=== PATIENT | female | born 1940 | race Caucasian/White ===

== ENCOUNTER 2019-03-19 14:13 | Inpatient (IN) | payer MEDICARE, MEDICAID, SELFPAY ==
[2019-03-19 20:45] VITALS: BP 127/71; PULSE 69; RESP 16; TEMP 36.5; O2SAT 95
[2019-03-19 21:00] VITALS: BP 116/69; PULSE 65; RESP 18; TEMP 36.4; O2SAT 94
[2019-03-19 21:30] VITALS: BP 119/70; PULSE 64; RESP 18; TEMP 36.4; O2SAT 96
[2019-03-19 22:30] VITALS: BP 121/69; PULSE 61; RESP 18; TEMP 36.5; O2SAT 97
[2019-03-19 23:30] VITALS: BP 126/71; PULSE 62; RESP 18; TEMP 36.5; O2SAT 97
[2019-03-20] VITALS (8 sets, daily range): BP systolic 103–134; BP diastolic 45–85; PULSE 59–71; RESP 16–22; TEMP 36.3–36.7; O2SAT 93–96
--- NOTE | 2019-03-20 05:43 | PC.PHAR ---
RENAL DOSING FOR LEVAQUIN. CHANGED Q24H TO Q48H DUE TO CRCL 23.05
[2019-03-20 06:10] LABS: Add RBC Morph No
[2019-03-20 06:17] LABS: Basophils % 0.2 %; Eosinophils # 0.3 10^3/uL (0.0-0.8); Eosinophils % 2.3 %; Hematocrit 25.6 % (37.0-47.0); Hemoglobin 8.1 g/dL (11.5-15.3); Lymphocytes # 1.6 10^3/uL (0.8-4.8); Lymphocytes % 11.4 %; Mean Corpuscular HGB Conc 31.6 g/dL (30.0-36.0); Mean Corpuscular Volume 85.3 fL (81-99); Mean Platelet Volume 10.4 fL (7.4-10.4); Monocytes % 6.8 %; Neutrophils # 11.2 10^3/uL (1.8-7.7); Neutrophils % 78.8 %; Nucleated Red Blood Cells % 0.1 %; Platelet Count 552 10^3/cmm (130-400); White Blood Count 14.2 10^3/uL (4.0-10.0)
--- NOTE | 2019-03-20 06:32 | PC.NURSE ---
BLOOD VITALS: Prior to Admin
--- NOTE | 2019-03-20 06:42 | PC.NURSE ---
BLOOD VITALS: 03/20/19: 0010 Final Blood vitals after blood admin complete.
[2019-03-20] MEDS: pantoprazole DR 40 mg Tablet PO (08:50)
[2019-03-20] MEDS: sodium chloride 0.9 % (flush) syringe 10 mL 2 ML IV ×3 (08:51→23:21)
[2019-03-20] MEDS: ropinirole 1 mg Tablet PO (08:51)
[2019-03-20] MEDS: carvedilol 6.25 mg Tablet PO ×2 (08:51→17:40)
[2019-03-20] MEDS: carbidopa-levodopa ER 50-200mg Tablet 1 EACH PO ×3 (08:51→21:55)
[2019-03-20] MEDS: magnesium oxide 400 mg tablet PO (08:52)
[2019-03-20 10:09] LABS: Folate > 20.0 ng/mL (4.8-37.3)
[2019-03-20 12:12] LABS: Anion Gap 16.1 (5-19); Carbon Dioxide 24 mmol/L (22-29); Chloride 105 mmol/L (98-107); Glucose 172 mg/dL (74-106); Potassium 4.1 mmol/L (3.5-5.1); Sodium 141 mmol/L (136-145)
[2019-03-20 13:12] LABS: Blood Urea Nitrogen 54 mg/dL (8-23); Calcium 8.8 mg/Dl (8.8-10.2)
--- NOTE | 2019-03-20 13:46 | PC.CHAP ---
Pastoral Care Encounter/Spiritual Assessment Type of Contact [] Declined parks worker visit [] Patient/Family/Request visit [] Outpatient visit [] Follow-up visit [] Physician referral [] Code/Alert [x Routine visit [] Staff referral [] Actively dying [] Patient sleeping [] Family support [] [] Out of room [] Palliative care [] [] Receiving care in room [] Pre-surgical visit [] Trauma [] Long length of stay [] ICU visit [] Other: Relational/Emotional Strength [x] Patient feels connected with others/family/visitors/staff [] Distress [] Loneliness/isolation [] Abandonment Spirituality of Patient [x] Person of [place] [] Attends [facility] of their [place] [] Believes in Prayer [] Reads Bible or Sikhism materials [] There are Spiritual issues to be addressed [employer] Interventions [x Prayer [x] Active listening [x Non-anxious presence [x] Spiritual/emotional support [] Crisis/trauma care [] Spiritual counseling [] Bereavement support [] Provided bereavement packet [] Provided Bible/devotional materials [] Provided toy/stuffed animal, coloring book to patient or family member [x] Completed spiritual assessment [] Provided Communion [] Anointing/[place] [] Salvation [] Other: Impact on Illness or Injury [] Angry [] Fearful [x] Anxious [] Often cries [] Exhaustion [] Unable to work [] Unable to attend taoism [] Unable to walk/stand [] Unable to read [] Unable to drive [] Unable to eat/drink [] Unable to sleep [] Unable to be with family [] Other: Summary wants to go home has great attitude loves [facility] Time spent with patient 7 min
[2019-03-20 14:57] LABS: Add Urine Culture? No; Bacteria Urine TRACE; Bilirubin Urine Neg (Negative); Blood Urine Neg (Negative); Glucose Urine UA Norm (Normal); Ketones Urine Negative (Negative); Leukocyte Esterase Urine Negative (Negative); Nitrate Urine Negative (Negative); Protein Urine Trace (Negative); Squamous Epithelial Cell Urine 0-4 (0-5); Urine Appearance Clear (CLEAR); Urine Color Straw (Yellow); Urobilinogen Urine Norm (Negative); WBC Urine 0-4 /hpf (0-5)
--- NOTE | 2019-03-20 17:09 | P.PN_ITS ---
Subjective Subjective: Interval history: Chelsi reports she is feeling better. She is less short of breath. Medications: Reviewed: Yes Vitals/I&O/Wt Last Vital Signs Temp 97.5 F L 03/20/19 11:34 Pulse 71 03/20/19 15:48 Resp 18 03/20/19 15:48 BP 134/76 03/20/19 15:48 Pulse Ox 93 03/20/19 15:48 03/20/19 03/20/19 03/20/19 06:59 14:59 22:59 Intake Total 600 / 600 Output Total 200 / 200 200 / 200 400 / 600 Balance -200 / -200 400 / 400 -400 / 0 Weight last 48 hrs Weight 70.023 kg Physical Exam Narrative: EXAM NARRATIVE: General exam is no apparent distress, does appear weak Cardiovascular regular rate and rhythm with a 2/6 systolic murmur Lungs diminished breath sounds bilaterally but clear Abdomen is soft with positive bowel sounds Extremities trace to 1+ edema bilaterally. Data Labs: Other Labs: All Labs last 24 hrs except CBC/BMP 03/19/19 03/19/19 03/19/19 13:08 14:30 18:00 RBC MCV MCH MCHC RDW MPV Neut % (Auto) Lymph % (Auto) [place] % (Auto) Eos % (Auto) Baso % (Auto) Neut # (Auto) Lymph # (Auto) [place] # (Auto) Eos # (Auto) Baso # (Auto) Nucleated RBC % (a uto) Nucleated RBCs # POC Glucose 121 H Calcium Ferritin 49.0 Vitamin B12 807 Folate TSH 1.56 Urine Color Straw Urine Appearance Clear Urine pH 5.0 Ur Specific Gravit y 1.010 Urine Protein Trace A Urine Glucose (UA) Norm Urine Ketones Negative Urine Occult Blood Neg Urine Nitrate Negative Urine Bilirubin Neg Urine Urobilinogen Norm Ur Leukocyte Vee ase Negative Urine RBC None Urine WBC 0-4 H Ur Squamous Epith Cells 0-4 H Urine Bacteria Trace 03/19/19 03/20/19 03/20/19 21:04 05:20 05:20 RBC 3.00 L MCV 85.3 MCH 27.0 L MCHC 31.6 RDW 16.0 H MPV 10.4 Neut % (Auto) 78.8 Lymph % (Auto) 11.4 [place] % (Auto) 6.8 Eos % (Auto) 2.3 Baso % (Auto) 0.2 Neut # (Auto) 11.2 H Lymph # (Auto) 1.6 Bell # (Auto) 1.0 H Eos # (Auto) 0.3 Baso # (Auto) 0.0 Nucleated RBC % (a uto) 0.1 Nucleated RBCs # 0.0 POC Glucose 199 H Calcium Ferritin Vitamin B12 Folate > 20.0 TSH Urine Color Urine Appearance Urine pH Ur Specific Gravit y Urine Protein Urine Glucose (UA) Urine Ketones Urine Occult Blood Urine Nitrate Urine Bilirubin Urine Urobilinogen Ur Leukocyte Vee ase Urine RBC Urine WBC Ur Squamous Epith Cells Urine Bacteria 03/20/19 11:42 RBC MCV MCH MCHC RDW MPV Neut % (Auto) Lymph % (Auto) [place] % (Auto) Eos % (Auto) Baso % (Auto) Neut # (Auto) Lymph # (Auto) [place] # (Auto) Eos # (Auto) Baso # (Auto) Nucleated RBC % (a uto) Nucleated RBCs # POC Glucose Calcium 8.8 Ferritin Vitamin B12 Folate TSH Urine Color Urine Appearance Urine pH Ur Specific Gravit y Urine Protein Urine Glucose (UA) Urine Ketones Urine Occult Blood Urine Nitrate Urine Bilirubin Urine Urobilinogen Ur Leukocyte Vee ase Urine RBC Urine WBC Ur Squamous Epith Cells Urine Bacteria Micro: Micro: Microbiology 03/19/19 14:30 Occult Blood (FIT) - Final Stool A&P Assessment and plan (1) Respiratory failure: Overall appears improved. On 3 L of oxygen. Status: Acute Code(s): J96.90 - Respiratory failure, unspecified, unspecified whether with hypoxia or hypercapnia (2) Anemia: Improved following transfusion. Further work-up indicates iron deficiency, heme-negative stools. Will provide iron transfusion Status: Acute Code(s): D64.9 - Anemia, unspecified (3) Leukocytosis: Improved Status: Acute Code(s): D72.829 - Elevated white blood cell count, unspecified (4) Right lower lobe pneumonia: Currently on IV Levaquin Status: Acute Code(s): J18.9 - Pneumonia, unspecified organism (5) Type 2 diabetes mellitus: Stable Status: Acute Code(s): E11.9 - Type 2 diabetes mellitus without complications (6) Mitral regurgitation: Stable Status: Acute Code(s): I34.0 - Nonrheumatic mitral (valve) insufficiency (7) Chronic kidney disease, stage III (moderate): Stable Status: Acute Code(s): N18.3 - Chronic kidney disease, stage 3 (moderate) (8) Coronary artery disease: Asymptomatic Status: Acute Code(s): I25.10 - Atherosclerotic heart disease of [place] coronary artery without angina pectoris (9) Diastolic heart failure: Will add Lasix 40 mg daily, monitor creatinine closely Status: Acute Code(s): I50.30 - Unspecified diastolic (congestive) heart failure Attestations Medical Necessity Statement*: Needs continued hospital stay for adjustment of medications secondary to acute diastolic heart failure, IV antibiotics for pneumonia. Coding Level of Care Code Acute Sap Senior Developer for [facility] Fwd Diagnoses Respiratory failure J96.90 Anemia D64.9 Leukocytosis D72.829 Right lower lobe pneumonia J18.9 Type 2 diabetes mellitus E11.9 Mitral regurgitation I34.0 Chronic kidney disease, stage III (moderate) N18.3 Coronary artery disease I25.10 Diastolic heart failure I50.30
[2019-03-20] MEDS: FUROsemide 40 mg Tablet PO (17:41)
[2019-03-20 17:54] LABS: Glucose Point of Care 144 mg/dL (70-110)
[2019-03-20 21:44] LABS: Glucose Point of Care 190 mg/dL (70-110)
[2019-03-20] MEDS: atorvastatin 40 mg Tablet PO (21:56)
[2019-03-21] VITALS (8 sets, daily range): BP systolic 118–130; BP diastolic 64–74; PULSE 59–68; RESP 18–24; TEMP 35.8–36.6; O2SAT 88–96
[2019-03-21 05:28] LABS: Basophils % 0.1 %; Eosinophils # 0.3 10^3/uL (0.0-0.8); Hematocrit 27.9 % (37.0-47.0); Hemoglobin 8.6 g/dL (11.5-15.3); Lymphocytes # 1.7 10^3/uL (0.8-4.8); Lymphocytes % 11.1 %; Mean Corpuscular HGB Conc 30.8 g/dL (30.0-36.0); Mean Corpuscular Hemoglobin 27.1 pg (28.0-34.0); Mean Platelet Volume 10.3 fL (7.4-10.4); Monocytes # 1.1 10^3/uL (0.2-0.9); Monocytes % 7.2 %; Neutrophils # 12.4 10^3/uL (1.8-7.7); Neutrophils % 79.2 %; Nucleated Red Blood Cells % 0.1 %; Platelet Count 552 10^3/cmm (130-400); Red Blood Count 3.17 10^6/uL (4.1-5.3); Red Cell Distribution Width 16.3 % (12.1-15.1); White Blood Count 15.6 10^3/uL (4.0-10.0)
[2019-03-21] MEDS: sodium chloride 0.9 % (flush) syringe 10 mL 2 ML IV (05:31)
[2019-03-21 05:34] LABS: Add RBC Morph No
[2019-03-21 05:49] LABS: Blood Urea Nitrogen 52 mg/dL (8-23); Calcium 9.1 mg/Dl (8.8-10.2); Carbon Dioxide 23 mmol/L (22-29); Chloride 106 mmol/L (98-107); Glucose 132 mg/dL (74-106); Sodium 140 mmol/L (136-145)
[2019-03-21 06:43] LABS: Glucose Point of Care 146 mg/dL (70-110)
[2019-03-21] MEDS: ropinirole 1 mg Tablet PO (10:15)
[2019-03-21] MEDS: pantoprazole DR 40 mg Tablet PO (10:15)
[2019-03-21] MEDS: carvedilol 6.25 mg Tablet PO (10:15)
[2019-03-21] MEDS: FUROsemide 40 mg Tablet PO (10:16)
[2019-03-21] MEDS: carbidopa-levodopa ER 50-200mg Tablet 1 EACH PO (10:16)
--- NOTE | 2019-03-21 12:13 | PM.DCS ---
Discharge Providers Date of Admission: 03/19/19 14:13 Date of Discharge: 03/21/19 Attending Provider at Admission: Ej Davidson MD Attending Provider at Discharge: Ej Davidson MD Primary Care Provider: Vlad Tovar DO Diagnoses at Discharge Discharge Diagnosis (1) Respiratory failure: Status: Acute Problem details: Resolved. Home oxygen evaluation prior to discharge (2) Anemia: Status: Acute Problem details: Transfuse 1 unit packed red blood cells. Hemoglobin stable. Given iron transfusion. May need further outpatient work-up. Protonix initiated. (3) Leukocytosis: Status: Acute Problem details: Improved (4) Right lower lobe pneumonia: Status: Acute Problem details: Will discharge on Levaquin (5) Type 2 diabetes mellitus: Status: Acute Problem details: Stable (6) Mitral regurgitation: Status: Acute Problem details: Contributing to some fluid overload. (7) Chronic kidney disease, stage III (moderate): Status: Acute Problem details: Stable, improved (8) Coronary artery disease: Status: Acute Problem details: Stable (9) Diastolic heart failure: Status: Acute Problem details: Lasix 40 mg daily initiated. Will need outpatient BMP Reason for Visit Reason for Visit: Reason For Visit: Anemia, Dyspnea Hospital Course Hospital Course: Chelsi is a 78-year-old white female who presented with shortness of breath. She was found to be significantly anemic, and have some evidence of fluid overload. She was given 1 unit of packed red blood cells with Lasix. This greatly improved her severe fatigue and shortness of breath. Stool was Hemoccult negative. Iron studies i showed severe iron deficiency anemia. She was transfused iron as well. By March 21 she wished to go home. Home oxygen is evaluation will be completed. She will need a BMP, CBC in 3 to 5 days for follow-up. Physical Exam Narrative: EXAM NARRATIVE: General exam no apparent distress Cardiovascular regular rate and rhythm with a 2/6 systolic murmur Lungs clear Abdomen is soft with positive bowel sounds Extremities trace edema Discharge Data Data Completed and Pending: Pending at discharge Category Date Time Status Sputum Culture an d Gram Stain Kerrie ne Lab 03/19/19 23:24 Uncollected Labs from last 24 hours 03/21/19 03/21/19 03/21/19 06:35 04:35 04:35 WBC 15.6 H RBC 3.17 L Hgb 8.6 L Hct 27.9 L MCV 88.0 MCH 27.1 L MCHC 30.8 RDW 16.3 H Plt Count 552 H MPV 10.3 Neut % (Auto) 79.2 Lymph % (Auto) 11.1 [place] % (Auto) 7.2 Eos % (Auto) 2.0 Baso % (Auto) 0.1 Neut # (Auto) 12.4 H Lymph # (Auto) 1.7 [place] # (Auto) 1.1 H Eos # (Auto) 0.3 Baso # (Auto) 0.0 Nucleated RBC % (a uto) 0.1 Nucleated RBCs # 0.0 Sodium 140 Potassium 4.0 Chloride 106 Carbon Dioxide 23 Anion Gap 15.0 BUN 52 H Creatinine 1.6 H Glucose 132 H POC Glucose 146 Calcium 9.1 Urine Color Urine Appearance Urine pH Ur Specific Gravit y Urine Protein Urine Glucose (UA) Urine Ketones Urine Occult Blood Urine Nitrate Urine Bilirubin Urine Urobilinogen Ur Leukocyte Vee ase Urine RBC Urine WBC Ur Squamous Epith Cells Urine Bacteria 03/20/19 03/20/19 03/20/19 21:39 17:32 11:42 WBC RBC Hgb Hct MCV MCH MCHC RDW Plt Count MPV Neut % (Auto) Lymph % (Auto) [place] % (Auto) Eos % (Auto) Baso % (Auto) Neut # (Auto) Lymph # (Auto) [place] # (Auto) Eos # (Auto) Baso # (Auto) Nucleated RBC % (a uto) Nucleated RBCs # Sodium 141 Potassium 4.1 Chloride 105 Carbon Dioxide 24 Anion Gap 16.1 BUN 54 H Creatinine 1.7 H Glucose 172 H POC Glucose 190 144 Calcium 8.8 Urine Color Urine Appearance Urine pH Ur Specific Gravit y Urine Protein Urine Glucose (UA) Urine Ketones Urine Occult Blood Urine Nitrate Urine Bilirubin Urine Urobilinogen Ur Leukocyte Vee ase Urine RBC Urine WBC Ur Squamous Epith Cells Urine Bacteria 03/19/19 14:30 WBC RBC Hgb Hct MCV MCH MCHC RDW Plt Count MPV Neut % (Auto) Lymph % (Auto) [place] % (Auto) Eos % (Auto) Baso % (Auto) Neut # (Auto) Lymph # (Auto) [place] # (Auto) Eos # (Auto) Baso # (Auto) Nucleated RBC % (a uto) Nucleated RBCs # Sodium Potassium Chloride Carbon Dioxide Anion Gap BUN Creatinine Glucose POC Glucose Calcium Urine Color Straw Urine Appearance Clear Urine pH 5.0 Ur Specific Gravit y 1.010 Urine Protein Trace A Urine Glucose (UA) Norm Urine Ketones Negative Urine Occult Blood Neg Urine Nitrate Negative Urine Bilirubin Neg Urine Urobilinogen Norm Ur Leukocyte Vee ase Negative Urine RBC None Urine WBC 0-4 H Ur Squamous Epith Cells 0-4 H Urine Bacteria Trace Vitals: Last Vital Signs Temp 97.6 F 03/21/19 11:24 Pulse 65 03/21/19 11:24 Resp 18 03/21/19 11:24 BP 118/66 03/21/19 11:24 Pulse Ox 96 03/21/19 11:24 Discharge Plan Discharge Patient Disposition: Home, Self-Care Condition: Stable Prescriptions: New ferrous sulfate 325 mg (65 mg iron) tablet,delayed release (DR/EC) 325 mg PO BID Qty: 60 RF: 0 Continued Lipitor 40 mg Tablet 40 mg PO DAILY RF: 0 Tylenol 325 mg Tablet 325 mg PO PRN PRN (Reason: Pain) RF: 0 Coreg 6.25 mg Tablet 6.25 mg PO BID RF: 0 ropinirole 1 mg Tablet 1 mg PO DAILY RF: 0 Sinemet CR 50-200 mg Tablet Extended Release 1 tab PO TID RF: 0 Ultram 50 mg Tablet 50 mg PO QID PRN (Reason: Pain) RF: 0 entacapone 200 mg Tablet 200 mg PO TID RF: 0 Novolog U-100 Insulin aspart 100 unit/mL Solution See Rx Instructions .ROUTE .COMPLEX RF: 0 Multi For Her 18 mg iron-600 mcg-40 mcg Capsule 1 tab-cap PO DAILY RF: 0 melatonin 10 mg Tablet 30 mg PO BEDTIME RF: 0 Tresiba FlexTouch U-100 100 unit/mL (3 mL) Insulin Pen 20 unit SUBCUT BEDTIME RF: 0 Discontinued magnesium oxide 400 mg magnesium Capsule 400 mg PO DAILY RF: 0 Discharge Orders: Discharge Order (Routine); Ordered 03/21/19 Ordered By: Ej Davidson Referrals: Laurent Chisholm [Registered Pharmacist] - 4-7 days (Will need BMP, CBC on follow-up. Consideration of further work-up of anemia) Discharge Diet: Diabetic Discharge Activity: Resume usual activity Activity Restrictions/Additional Instructions: Take all medicine as prescribed. Home oxygen evaluation prior to discharge. Discharge Attestations Time Spent in Discharge Care*: greater than 30 min Quality Metrics Clinical Quality Measures During this hospital stay, did patient experience: None Coding Level of Care Code Acute Speech Pathology Supervisor for [facility] Fwd Diagnoses Respiratory failure J96.90 Anemia D64.9 Leukocytosis D72.829 Right lower lobe pneumonia J18.9 Type 2 diabetes mellitus E11.9 Mitral regurgitation I34.0 Chronic kidney disease, stage III (moderate) N18.3 Coronary artery disease I25.10 Diastolic heart failure I50.30
[2019-03-21 12:42] LABS: Glucose Point of Care 207 mg/dL (70-110)
--- NOTE | 2019-03-22 13:38 | PC.RESP ---
Patient given information on Pulmonary Rehab.
== END 2019-03-21 15:58 | disposition home or self-care (01) | DRG 189 ==
PROVIDERS: Admitting Provider Internal Medicine; Emergency Provider Family Medicine; PCP Family Medicine; Visit Provider Internal Medicine
DX: J96.01 Acute respiratory failure with hypoxia (principal); J18.9 Pneumonia, unspecified organism; I50.31 Acute diastolic (congestive) heart failure; I13.0 Hypertensive heart and chronic kidney disease with heart failure and stage 1 through stage 4 chronic kidney disease, or unspecified chronic kidney disease; D50.9 Iron deficiency anemia, unspecified; Z79.4 Long term (current) use of insulin; E11.9 Type 2 diabetes mellitus without complications; I25.10 Atherosclerotic heart disease of native coronary artery without angina pectoris; Z95.5 Presence of coronary angioplasty implant and graft; E78.5 Hyperlipidemia, unspecified; E11.22 Type 2 diabetes mellitus with diabetic chronic kidney disease; N18.3 Chronic kidney disease, stage 3 (moderate); I25.2 Old myocardial infarction; I27.20 Pulmonary hypertension, unspecified; I34.0 Nonrheumatic mitral (valve) insufficiency
CPT/HCPCS: 36415; 36416; 36600; 71045; 80048; 80053; 81001; 82274; 82607; 82728; 82746; 82803; 82962; 83540; 83550; 83605; 83690; 83880; 84443; 84484; 85025; 85610; 86850; 86900; 86901; 86920; 87040; 87804; 93005; 93306; 94640; 99285; J1756; J1815; J1940; J1956; P9016

== ENCOUNTER 2019-07-29 07:19 | Inpatient (IN) | payer MEDICARE, MEDICAID, SELFPAY ==
[2019-07-29] VITALS (13 sets, daily range): BP systolic 109–133; BP diastolic 52–74; PULSE 63–73; RESP 15–20; TEMP 36.4–36.7; O2SAT 96–98; BMI 25.4
--- NOTE | 2019-07-29 07:39 | PC.NURSE ---
Cardiac leads not picking up lead 2. A new set applied with good results
--- NOTE | 2019-07-29 07:41 | CT_ITS ---
WS: [id number] CT ABDOMEN AND PELVIS WITH CONTRAST HISTORY: Blood in stool for 3 days. Prior hysterectomy, appendectomy and cholecystectomy. TECHNIQUE: Imaging performed of the abdomen and pelvis with IV contrast. Single phase imaging of the abdomen. Coronal and sagittal reformats are submitted. All CT scans at [facility] use at least one of these dose optimization techniques: automated exposure control; mA and/or kV adjustment per patient size (includes targeted exams where dose is matched to clinical indication); or iterativ e reconstruction. IV CONTRAST: Visipaque 320; 95 mL IV. Oral contrast: No DLP: 854.46 mGy.cm COMPARISON: None available. Lower thorax: Small layering RIGHT pleural effusion. Tiny amount of fluid at the LEFT lung base. Subs egmental bilateral compressive atelectasis at the bases. Moderate enlargement of the heart chambers. There is a small circumferential pericardial effusion. Extensive vascular calcification in the [place] ry arteries. Liver/biliary system: Liver is small shrunken with lobulated margins. No mass identified. Caudate lob e is enlarged. Portal veins patent. Common bile duct is dilated to 1.4 cm. Tapers normally towards th e pancreatic head. Small amount of perihepatic fluid. Gallbladder: Prior cholecystectomy. Pancreas: Atrophied pancreas. Spleen: Spleen is slightly enlarged at 13.3 cm in length with low attenuation. There is a small amoun t of perisplenic fluid. Adrenal glands: Normal. Right kidney: Marked atrophy of the RIGHT kidney. No obstruction. Left kidney: Mild atrophy of the LEFT kidney without obstruction. No solid mass. Aorta: Heavy calcification throughout the aorta. Calcification continues into the iliac arteries. Lymphadenopathy: None. Free fluid: There is a small amount of perihepatic and perisplenic fluid. Very tiny amount of fluid i n the pelvis. GI tract: No GI tract obstruction. Prior appendectomy. Numerous diverticula in the descending and sig moid colon with tortuosity. Mild wall thickening in the cecum with a small amount of adjacent free fl uid. Numerous diverticula present in this area. There is an area of soft tissue thickening measuring 2.1 x 1.4 cm associated with the sigmoid which could be an inflammatory or neoplastic process. Abdominal wall: Soft tissue anasarca. Pelvis: Small amount of free fluid in the pelvis. Negative urinary bladder. Bones: L4 anterolisthesis by 5 mm. Moderate degenerative disc disease L4-5 and L5-S1. No osteoblastic or osteolytic bone disease. Notified Vlad Tovar DO at 07/29/2019 11:[address]/CT abdomen pelvis w con* [id number] IMPRESSION:[id number] 1. Extensive descending and sigmoid diverticulosis. 2. Mild inflammatory changes in the sigmoid colon consistent with acute divert iculitis. There is a focal soft tissue nodule measuring 2.1 x 1.4 cm associated with the sigmoid which could be an inflammatory or neoplastic process. There i s surrounding edema. This soft tissue process is best seen on image 58 of serie s 2. 3. Advanced cirrhosis with splenomegaly. 4. Small amount of ascites and small bilateral pleural effusions and anasarca. 5. Prior cholecystectomy, appendectomy and hysterectomy. 6. Dilated common bile duct may be physiologic. 7. Moderate cardiomegaly with small pericardial effusion. 8. Severe RIGHT renal atrophy and mild LEFT renal atrophy. 9. Advanced atherosclerosis aorta and common iliac arteries.
--- NOTE | 2019-07-29 07:42 | ED_ITS ---
HPI - GI Bleed General: Chief complaint: GI Bleed Stated complaint: Poss GI bleed Time Seen by Provider: 07/29/19 07:34 History of Present Illness: HPI Narrative: 79-year-old female who presents emergency room with complaints of 2 days of bloody diarrhea. She cannot quantify the number of stools she had but she says with the stool she completely discolored the toilet water with bright red blood. She has had mild left lower quadrant pain she denies fever she cannot recall her last colonoscopy. She not had any respiratory symptoms denies use dysuria urgency or frequency denies any chest pain or shortness of breath. She has a history of diabetes mellitus chronic renal disease and Parkinson's MD complaint: gross hematochezia Onset (ago): day(s) (2) Pain Consistency: colicky Severity: mild Associated symptoms: Reports abdominal pain; Denies chills, fever(s), malaise, nausea, rash or vomiting Review of Systems Const: Denies: fever, chills, body aches, change in appetite, fatigue or malaise ENMT: Denies: throat pain, ear pain, nasal discharge or nasal congestion Card: Denies: chest pain, edema, shortness of breath on exertion or shortness of breath when lying down Resp: Denies: shortness of breath, productive cough or non-productive cough GI: Reports: abdominal pain and blood in stool; Denies: nausea, vomiting, vomiting blood, coffee grounds in vomit, diarrhea, constipation, bloating or black tarry stool : Denies: flank pain, difficulty urinating, painful urination, urinary frequency or urinary urgency Skin/Breast: Denies: rash or itching [facility] ED PFSH: Family History Mother CAD (coronary artery disease) Myocardial infarction Diabetes Hypertension Social History Smoking and tobacco status: never smoked Alcohol intake: never Physical Exam Const: COMMON NORMALS: no apparent distress GENERAL APPEARANCE: cooperative and comfortable ORIENTATION/CONSCIOUSNESS: Yes awake, Yes oriented to person, Yes oriented to place and Yes oriented to time HENMT: COMMON NORMALS: normocephalic, head/scalp atraumatic, hearing grossly normal bilaterally, external ears normal, EAC's normal, TM's normal bilaterally, nasal mucous membranes and turbinates normal, moist oral mucous membranes and oropharynx normal HEAD & SCALP: normocephalic and atraumatic NOSE: nasal mucous membranes and turbinates normal EXTERNAL EAR: Yes external ears normal EXTERNAL AUDITORY CANAL: EAC's normal TYMPANIC MEMBRANE: TM's normal bilaterally Eye: COMMON NORMALS: PERRL, EOMs intact bilaterally, conjunctivae normal and no scleral icterus CONJUNCTIVA: Yes conjunctivae normal PUPIL: Yes PERRL Neck/C-Spine: COMMON NORMALS: full ROM, no lymphadenopathy, supple and no JVD Lymph: LYMPHATIC: no lymphadenopathy noted and no lymphedema noted Resp: COMMON NORMALS: normal respiratory effort, no retractions, no use of accessory muscles and clear to auscultation bilaterally AUSCULTATION: clear to auscultation bilaterally Cardio: COMMON NORMALS: no JVD, regular rate, regular rhythm and no murmurs RATE: regular rate RHYTHM: regular rhythm GI: COMMON NORMALS: soft to palpation and no hepatosplenomegaly AUSCULTATION: Yes normoactive bowel sounds PALPATION: Yes soft, No tender, No guarding and Yes no hepatosplenomegaly Extremity: COMMON NORMALS: normal to inspection, normal capillary refill, no clubbing, cyanosis or edema, no calf tenderness and no pedal edema Neuro: SENSORIUM/ORIENTATION: Yes oriented to person, Yes oriented to place and Yes oriented to time Skin: COMMON NORMALS: no rashes or lesions noted GENERAL SKIN EXAM: no rashes or lesions noted Course Vital Signs: Vital signs: Vital Signs Temperature 97.7 F 07/29/19 07:20 Pulse Rate 71 07/29/19 16:02 Respiratory Rate 15 07/29/19 16:02 Blood Pressure 130/60 07/29/19 16:02 Pulse Oximetry 97 07/29/19 16:02 MDM - GI Bleed MDM Narrative: Medical decision making narrative: Active rectal bleeding with signs of potential small diverticular perforation. We will go and admit her with IV Cipro and Flagyl discussed with the hospitalist and the patient. Her hemoglobin is stable at this time will need monitoring as well as antibiotics and gut rest Lab Data: Attestation: I reviewed the patient's lab results. Labs: Lab Results 07/29/19 07/29/19 07/29/19 Range/Units 08:30 09:11 09:11 WBC 9.7 (4.0-10.0) 10^3/ uL RBC 2.86 L (4.1-5.3) 10^6/u L Hgb 8.0 L (11.5-15.3) g/dL Hct 25.7 L (37.0-47.0) % MCV 89.9 (81-99) fL MCH 28.0 (28.0-34.0) pg MCHC 31.1 (30.0-36.0) g/dL RDW 18.9 H (12.1-15.1) % Plt Count 305 (130-400) 10^3/c mm MPV 10.4 (7.4-10.4) fL Neut % (Auto) 68.3 % Lymph % (Auto) 22.2 % [place] % (Auto) 6.6 % Eos % (Auto) 2.3 % Baso % (Auto) 0.4 % Neut # (Auto) 6.6 (1.8-7.7) 10^3/u L Lymph # (Auto) 2.2 (0.8-4.8) 10^3/u L [place] # (Auto) 0.6 (0.2-0.9) 10^3/u L Eos # (Auto) 0.2 (0.0-0.8) 10^3/u L Baso # (Auto) 0.0 (0.0-0.1) 10^3/u L Nucleated RBC % (a uto) 0 % Nucleated RBCs # 0.0 /100WBC PT 14.80 H (10.5-13.3) SECO NDS INR 1.12 (0.8-1.2) APTT 33.2 (23.9-36.7) SECO NDS Sodium (136-145) mmol/L Potassium (3.5-5.1) mmol/L Chloride (98-107) mmol/L Carbon Dioxide (22-29) mmol/L Anion Gap (5-19) BUN (8-23) mg/dL Creatinine (0.5-0.9) mg/dL Glucose (65-115) mg/dL Calculated Osmolal ity (285-295) mOsm/k g Lactate (0.5-2.2) mmol/L Calcium (8.5-10.5) mg/dL Total Bilirubin (0.15-1.2) mg/dL AST (0-32) U/L ALT (0-33) U/L Alkaline Phosphata se (35-105) IU/L Total Protein (6.6-8.7) g/dL Albumin (3.5-5.2) g/dL Globulin (1.3-4.6) g/dL Lipase (13-60) U/L Urine Color Straw (Yellow) Urine Appearance Clear (CLEAR) Urine pH 5.0 (5-7) Ur Specific Gravit y 1.015 (1.005-1.030) Urine Protein 1+ H (Negative) Urine Glucose (UA) Norm (Normal) Urine Ketones Negative (Negative) Urine Blood 3+ H (Negative) Urine Nitrate Negative (Negative) Urine Bilirubin Neg (NEGATIVE) Urine Urobilinogen Norm (Negative) mg/dL Ur Leukocyte Vee ase Negative (Negative) Urine RBC Rare (0-2) /hpf Urine WBC 0-4 H (0-5) /hpf Ur Squamous Epith Cells 0-4 H (0-5) Urine Bacteria Trace (NONE) 07/29/19 07/29/19 Range/Units 09:11 09:11 WBC (4.0-10.0) 10^3/ uL RBC (4.1-5.3) 10^6/u L Hgb (11.5-15.3) g/dL Hct (37.0-47.0) % MCV (81-99) fL MCH (28.0-34.0) pg MCHC (30.0-36.0) g/dL RDW (12.1-15.1) % Plt Count (130-400) 10^3/c mm MPV (7.4-10.4) fL Neut % (Auto) % Lymph % (Auto) % [place] % (Auto) % Eos % (Auto) % Baso % (Auto) % Neut # (Auto) (1.8-7.7) 10^3/u L Lymph # (Auto) (0.8-4.8) 10^3/u L [place] # (Auto) (0.2-0.9) 10^3/u L Eos # (Auto) (0.0-0.8) 10^3/u L Baso # (Auto) (0.0-0.1) 10^3/u L Nucleated RBC % (a uto) % Nucleated RBCs # /100WBC PT (10.5-13.3) SECO NDS INR (0.8-1.2) APTT (23.9-36.7) SECO NDS Sodium 143 (136-145) mmol/L Potassium 3.7 (3.5-5.1) mmol/L Chloride 106 (98-107) mmol/L Carbon Dioxide 24 (22-29) mmol/L Anion Gap 16.7 (5-19) BUN 42 H (8-23) mg/dL Creatinine 1.8 H (0.5-0.9) mg/dL Glucose 86 (65-115) mg/dL Calculated Osmolal ity 293 (285-295) mOsm/k g Lactate 0.6 (0.5-2.2) mmol/L Calcium 8.2 L (8.5-10.5) mg/dL Total Bilirubin 0.2 (0.15-1.2) mg/dL AST 22 (0-32) U/L ALT < 5 (0-33) U/L Alkaline Phosphata se 55 (35-105) IU/L Total Protein 6.1 L (6.6-8.7) g/dL Albumin 3.2 L (3.5-5.2) g/dL Globulin 2.9 (1.3-4.6) g/dL Lipase 27 (13-60) U/L Urine Color (Yellow) Urine Appearance (CLEAR) Urine pH (5-7) Ur Specific Gravit y (1.005-1.030) Urine Protein (Negative) Urine Glucose (UA) (Normal) Urine Ketones (Negative) Urine Blood (Negative) Urine Nitrate (Negative) Urine Bilirubin (NEGATIVE) Urine Urobilinogen (Negative) mg/dL Ur Leukocyte Vee ase (Negative) Urine RBC (0-2) /hpf Urine WBC (0-5) /hpf Ur Squamous Epith Cells (0-5) Urine Bacteria (NONE) Imaging Data^: CT Abd/Pel: Attestation: I personally reviewed and interpreted this imaging study as follows: Radiologist's impression: CT ABDOMEN AND PELVIS WITH CONTRAST HISTORY: Blood in stool for 3 days. Prior hysterectomy, appendectomy and cholecystectomy. TECHNIQUE: Imaging performed of the abdomen and pelvis with IV contrast. Single phase imaging of the abdomen. Coronal and sagittal reformats are submitted. All CT scans at [facility] use at least one of these dose optimization techniques: automated exposure control; mA and/or kV adjustment per patient size (includes targeted exams where dose is matched to clinical indication); or iterative reconstruction. IV CONTRAST: Visipaque 320; 95 mL IV. Oral contrast: No DLP: 854.46 mGy.cm COMPARISON: None available. Lower thorax: Small layering RIGHT pleural effusion. Tiny amount of fluid at the LEFT lung base. Subsegmental bilateral compressive atelectasis at the bases. Moderate enlargement of the heart chambers. There is a small circumferential pericardial effusion. Extensive vascular calcification in the coronary arteries. Liver/biliary system: Liver is small shrunken with lobulated margins. No mass identified. Caudate lobe is enlarged. Portal veins patent. Common bile duct is dilated to 1.4 cm. Tapers normally towards the pancreatic head. Small amount of perihepatic fluid. Gallbladder: Prior cholecystectomy. Pancreas: Atrophied pancreas. Spleen: Spleen is slightly enlarged at 13.3 cm in length with low attenuation. There is a small amount of perisplenic fluid. Adrenal glands: Normal. Right kidney: Marked atrophy of the RIGHT kidney. No obstruction. Left kidney: Mild atrophy of the LEFT kidney without obstruction. No solid mass. Aorta: Heavy calcification throughout the aorta. Calcification continues into the iliac arteries. Lymphadenopathy: None. Free fluid: There is a small amount of perihepatic and perisplenic fluid. Very tiny amount of fluid in the pelvis. GI tract: No GI tract obstruction. Prior appendectomy. Numerous diverticula in the descending and sigmoid colon with tortuosity. Mild wall thickening in the cecum with a small amount of adjacent free fluid. Numerous diverticula present in this area. There is an area of soft tissue thickening measuring 2.1 x 1.4 cm associated with the sigmoid which could be an inflammatory or neoplastic process. Abdominal wall: Soft tissue anasarca. Pelvis: Small amount of free fluid in the pelvis. Negative urinary bladder. Bones: L4 anterolisthesis by 5 mm. Moderate degenerative disc disease L4-5 and L5-S1. No osteoblastic or osteolytic bone disease. Notified Vlad Tovar DO at 07/29/2019 11:[address]/CT abdomen pelvis w con* [id number] IMPRESSION:[id number] 1. Extensive descending and sigmoid diverticulosis. 2. Mild inflammatory changes in the sigmoid colon consistent with acute diverticulitis. There is a focal soft tissue nodule measuring 2.1 x 1.4 cm associated with the sigmoid which could be an inflammatory or neoplastic process. There is surrounding edema. This soft tissue process is best seen on image 58 of series 2. 3. Advanced cirrhosis with splenomegaly. 4. Small amount of ascites and small bilateral pleural effusions and anasarca. 5. Prior cholecystectomy, appendectomy and hysterectomy. 6. Dilated common bile duct may be physiologic. 7. Moderate cardiomegaly with small pericardial effusion. 8. Severe RIGHT renal atrophy and mild LEFT renal atrophy. 9. Advanced atherosclerosis aorta and common iliac arteries. Dictated By:Beulah Branch DO Discharge Plan Discharge Patient Disposition: Admitted As Inpatient Admit Provider: Gordon Murillo Clinical Impression: Diverticulitis, Type 2 diabetes mellitus, Chronic kidney disease, stage III (moderate), Moderate to severe pulmonary hypertension, Diverticular hemorrhage Condition: Stable Interventions: ED Discharge Assessment Last Done: 07/29/19 16:02 ED Charges Last Done: 07/29/19 16:02 Discharge Date/Time: 07/29/19 16:06 Coding Level of Care Code ED Resident Inspector for Ramilag Fwd Exam Comprehensive
[2019-07-29 09:26] LABS: Basophils % 0.4 %; Eosinophils # 0.2 10^3/uL (0.0-0.8); Eosinophils % 2.3 %; Hematocrit 25.7 % (37.0-47.0); Lymphocytes # 2.2 10^3/uL (0.8-4.8); Lymphocytes % 22.2 %; Mean Corpuscular HGB Conc 31.1 g/dL (30.0-36.0); Mean Corpuscular Volume 89.9 fL (81-99); Mean Platelet Volume 10.4 fL (7.4-10.4); Monocytes # 0.6 10^3/uL (0.2-0.9); Monocytes % 6.6 %; Neutrophils # 6.6 10^3/uL (1.8-7.7); Neutrophils % 68.3 %; Nucleated Red Blood Cells % 0 %; Platelet Count 305 10^3/cmm (130-400); Red Blood Count 2.86 10^6/uL (4.1-5.3); Red Cell Distribution Width 18.9 % (12.1-15.1); White Blood Count 9.7 10^3/uL (4.0-10.0)
[2019-07-29 09:39] LABS: INR 1.12 (0.8-1.2)
[2019-07-29 09:40] LABS: Partial Thromboplastin Time 33.2 SECONDS (23.9-36.7)
[2019-07-29 09:46] LABS: Alanine Aminotransferase < 5 U/L (0-33); Albumin Level 3.2 g/dL (3.5-5.2); Alkaline Phosphatase 55 IU/L (35-105); Anion Gap 16.7 (5-19); Blood Urea Nitrogen 42 mg/dL (8-23); Calcium 8.2 mg/dL (8.5-10.5); Carbon Dioxide 24 mmol/L (22-29); Chloride 106 mmol/L (98-107); Globulin 2.9 g/dL (1.3-4.6); Glucose 86 mg/dL (65-115); Lipase 27 U/L (13-60); Osmolality Calculated 293 mOsm/kg (285-295); Potassium 3.7 mmol/L (3.5-5.1); Sodium 143 mmol/L (136-145); Total Bilirubin 0.2 mg/dL (0.15-1.2); Total Protein 6.1 g/dL (6.6-8.7)
[2019-07-29 09:57] LABS: Add Urine Microscopic? YES; Bilirubin Urine Neg (NEGATIVE); Blood Urine 3+ (Negative); Glucose Urine UA Norm (Normal); Ketones Urine Negative (Negative); Leukocyte Esterase Urine Negative (Negative); Nitrate Urine Negative (Negative); Protein Urine 1+ (Negative); Specific Gravity, Urine 1.015 (1.005-1.030); Urine Appearance Clear (CLEAR); Urine Color Straw (Yellow); Urobilinogen Urine Norm (Negative)
[2019-07-29] MEDS: sodium chloride 0.9% 500 ML 999 ML IV (10:05)
[2019-07-29 10:08] LABS: Aspartate Amino Transferase 22 U/L (0-32)
[2019-07-29 10:09] LABS: Add Urine Culture? No; Bacteria Urine TRACE; RBC Urine RARE /hpf (0-2); Squamous Epithelial Cell Urine 0-4 (0-5); WBC Urine 0-4 /hpf (0-5)
[2019-07-29 10:09] LABS: Lactate (Lactic Acid level) 0.6 mmol/L (0.5-2.2)
--- NOTE | 2019-07-29 10:35 | PC.NURSE ---
Patient up to bedside commode.
[2019-07-29] MEDS: iodixanol 320 mg/mL 100mL Btl IV (11:04)
[2019-07-29] MEDS: ciprofloxacin 400 MG/200 ML PREMIX 200 MG IV (11:51)
--- NOTE | 2019-07-29 12:59 | P.HP_ITS ---
Providers/Chief Complaint Chief Complaint: Poss GI bleed History of Present Illness Chelsi Berger is a 79 year old female with a past medical history of insulin- dependent type 2 diabetes mellitus, chronic kidney disease stage III, CAD status post stenting x1, chronic anemia, diastolic heart failure, restless leg syndrome, hyperlipidemia, hypertension, moderate pulmonary hypertension, mo derate to severe mitral regurg, who presents to [facility] for bloody stools. Patient states that she lives in [place], she has a living caregiver, requires assistance with her activities of daily living, but ambulates without a walker, denies a history of dementia, but has episodes of forgetfulness during my questioning concerning for possible mild dementia. Patient states that for the last 2 days she has had bloody stools, she states that first she developed a minimal degree of blood on her stool, she thought nothing of it, but the bloody stools began to worsen, this morning she started to develop bright red blood per rectum, with clots, that she decided to come to the emergency room, no black stools, no lightheadedness, no dizziness, no chest pain, no shortness of breath. Patient has some mild lower abdominal pain this morning. No nausea. No vomiting. Last meal was yesterday evening. Patient states that she had a colonoscopy a few years ago which was unremarkable. She had an EGD a few years ago which was unremarkable. She denies a history of diverticulitis or diverticular bleed in the past. She does have a history of anemia, she was transfused on her last admission in March for anemia. Her anemia has been multifactorial secondary end-stage renal disease. Denies recent fevers, chills, cough, exposure to COVID-19. Review of Systems Const: Denies: fever, chills, fatigue or malaise Eyes: Denies: change in vision or blurry vision ENMT: Denies: nasal congestion Resp: Denies: shortness of breath, productive cough, non-productive cough or wheezing GI: Reports: abdominal pain; Denies: nausea, vomiting, vomiting blood, diarrhea, constipation, blood in stool or black tarry stool : Denies: flank pain, painful urination or urinary frequency Musc: Denies: neck pain or back pain Skin/Breast: Denies: rash Neuro: Denies: headache, dizziness or vertigo Psych: Denies: anxiety or depression Endo: Denies: excessive urination or excessive thirst Medications/Allergies Home Medications Medication Instructions Recorded Confirmed Last Taken Type Multi For Her 1 tab-cap PO DAILY 03/19/19 07/29/19 07/29/19 History Tresiba FlexTouch U-100 10 unit SUBCUT BEDTIME 03/19/19 07/29/19 07/28/19 History acetaminophen [Tylenol] 325 mg PO PRN PRN 03/19/19 07/29/19 07/28/19 History atorvastatin [Lipitor] 40 mg PO DAILY 03/19/19 07/29/19 07/28/19 History carbidopa-levodopa [Sinemet CR] 1 tab PO TID 03/19/19 07/29/19 07/28/19 History carvedilol [Coreg] 6.25 mg PO BID 03/19/19 07/29/19 07/29/19 History entacapone 200 mg PO TID 03/19/19 07/29/19 07/29/19 History insulin aspart U-100 [Novolog See Rx Instructions .ROUTE .COMPLEX 03/19/19 07/29/19 07/28/19 History U-100 Insulin aspart] melatonin 30 mg PO BEDTIME 03/19/19 07/29/19 07/28/19 History ropinirole 1 mg PO DAILY 03/19/19 07/29/19 07/28/19 History tramadol [Ultram] 50 mg PO QID PRN 03/19/19 07/29/19 Unknown History ferrous sulfate 325 mg PO BID #60 tab 03/21/19 07/29/19 07/29/19 Rx furosemide 40 mg PO DAILY@0800 #30 tab 03/21/19 07/29/19 07/29/19 Rx pantoprazole 40 mg PO DAILY #30 tab 03/21/19 07/29/19 07/29/19 Rx mag oxide 400 mg PO DAILY 03/28/19 07/29/19 07/29/19 History trazodone 50 mg PO BEDTIME 07/29/19 07/29/19 07/28/19 History Allergies Allergy/AdvReac Type Severity Reaction Status Date / Time aspirin Allergy Unknown Verified 03/19/19 18:10 PFSH Acute PFSH: Medical History (Updated 07/29/19 @ 13:07 by Gordon Murillo MD) Hyperlipidemia Hypertension Surgical History History of coronary artery stent placement 2007 History of tonsillectomy and adenoidectomy Hx of appendectomy Hx of cholecystectomy Hx of hysterectomy Family History Mother CAD (coronary artery disease) Myocardial infarction Diabetes Hypertension Social History Smoking and tobacco status: never smoked Alcohol intake: never Vitals/I&O/Wt Last Vital Signs Temp 97.7 F 07/29/19 07:20 Pulse 67 07/29/19 07:20 Resp 16 07/29/19 07:20 BP 125/73 07/29/19 07:20 Pulse Ox 97 07/29/19 07:20 Weight last 48 hrs Weight 58.967 kg Physical Exam Const: COMMON NORMALS: no apparent distress and alert GENERAL APPEARANCE: cooperative and comfortable ORIENTATION/CONSCIOUSNESS: Yes awake, Yes oriented to person and Yes oriented to place; not oriented to time HENMT: COMMON NORMALS: normocephalic HEAD & SCALP: normocephalic Eye: COMMON NORMALS: PERRL, EOMs intact bilaterally and no papilledema GENERAL EYE: normal appearance of both eyes PUPIL: Yes PERRL DIRECT OPHTHALMOSCOPY: Yes no papilledema Neck/C-Spine: COMMON NORMALS: full ROM, no lymphadenopathy, no JVD and thyroid normal THYROID: thyroid normal Lymph: LYMPHATIC: no lymphadenopathy noted Resp: COMMON NORMALS: normal respiratory effort, no retractions, no use of accessory muscles and clear to auscultation bilaterally AUSCULTATION: clear to auscultation bilaterally Cardio: COMMON NORMALS: no JVD, regular rate, regular rhythm, S1 normal heart sound, S2 normal heart sound, no gallops, no clicks and no murmurs RATE: regular rate RHYTHM: regular rhythm HEART SOUNDS: S1 normal and S2 normal GI: COMMON NORMALS: normal to inspection, nondistended, normoactive bowel sounds and soft to palpation PALPATION: Yes soft and Yes tender Details: LLQ Extremity: COMMON NORMALS: normal to inspection, full ROM and no pedal edema Neuro: COMMON NORMALS: CN's II-XII intact bilaterally, moves all extremities and no focal motor deficits SENSORIUM/ORIENTATION: Yes alert, Yes oriented to person and Yes oriented to place Psych: COMMON NORMALS: mental status grossly normal, thought process normal and cooperative THOUGHT PROCESS: normal thought process Data : 07/29/19 09:11 07/29/19 09:11 A&P Assessment and plan (1) Lower GI bleed: -Likely secondary to diverticular bleed, diverticulitis -Negative colonoscopy and EGD a few years ago -CT scan of the abdomen shows extensive descending and sigmoid diverticulosis. Mild inflammatory changes in the sigmoid colon consistent with acute diverticulitis. There is a focal soft tissue nodule measuring 2.1 x 1.4 cm associated with the sigmoid which could be an inflammatory or neoplastic process. There is surrounding edema. This soft tissue process is best seen on image 58 of series 2. -Hemoglobin is 8, patient's baseline hemoglobin 7-8 Plan: -Trend hemoglobins every 6 hours -N.p.o. -D5 normal saline at 100 cc an hour -Monitor for signs of bleeding -Protonix -Given history of CAD, will give 1 unit of blood -Ciprofloxacin, Flagyl -Serial abdominal exams -Serum iron studies, B12, folate -Patient will require repeat CT scan in a few months to look at this possible inflammatory or neoplastic soft tissue nodule in the sigmoid, follow-up with surgeon as outpatient Full code DVT prophylaxis SCDs, anticoagulation contraindicated due to GI bleed Status: Acute (2) Diverticular hemorrhage: Status: Acute (3) Diverticulitis: Status: Acute (4) Liver cirrhosis: -CT scan evidence of liver cirrhosis and splenomegaly -We will do a right upper quadrant ultrasound -Ferritin, hepatitis C, NALINI Status: Acute (5) Moderate to severe pulmonary hypertension: Status: Chronic (6) Oxygen dependent: Status: Acute (7) Parkinsons disease: Status: Chronic (8) Hyperlipidemia: Status: Chronic (9) Hypertension: Status: Chronic (10) Diastolic heart failure: Status: Acute (11) Coronary artery disease: Status: Acute (12) Chronic kidney disease, stage III (moderate): Creatinine at baseline at 1.8 Status: Acute (13) Mitral regurgitation: Status: Acute (14) Type 2 diabetes mellitus: Low-dose sliding scale Status: Acute Attestations Medical Necessity Statement*: Patient requires hospitalization, greater than 2 midnights, lower GI bleed, diverticulitis Coding Level of Care Code Acute Service Center Appraiser for Chg Fwd Diagnoses Lower GI bleed K92.2 Diverticular hemorrhage K57.31 Diverticulitis K57.92 Liver cirrhosis K74.60 Moderate to severe pulmonary hypertension I27.20 Oxygen dependent Z99.81 Parkinsons disease G20 Hyperlipidemia E78.5 Hypertension I10 Diastolic heart failure I50.30 Coronary artery disease I25.10 Chronic kidney disease, stage III (moderate) N18.3 Mitral regurgitation I34.0 Type 2 diabetes mellitus E11.9
[2019-07-29] MEDS: metroNIDAZOLE IV 500 MG/100 ML PREMIX 100 MG IV ×2 (13:51→23:54)
[2019-07-29 18:01] LABS: Hematocrit 26.8 % (37.0-47.0); Hemoglobin 8.5 g/dL (11.5-15.3)
[2019-07-29 18:15] LABS: INR 1.26 (0.8-1.2)
[2019-07-29 18:19] LABS: Glucose Point of Care 80 mg/dL (70-110)
[2019-07-29 18:26] LABS: C Reactive Protein 3.3 mg/L (0.0-4.9); Ferritin 114 ng/mL (15-150); Gamma Glutamyl Transferase 31 U/L (5-36); Iron 57 ug/dL (37-145); Percent Saturation 25.5 % (20-50); Total Iron Binding Capacity 223 mcg/dl; Unsaturated Iron Binding 166 ug/dL (112-347)
[2019-07-29 18:41] LABS: Vitamin B12 756 pg/mL (232-1245)
[2019-07-29] MEDS: carvedilol 6.25 mg Tablet PO (18:46)
[2019-07-29] MEDS: ferrous sulfate EC 325 mg Tablet PO (18:47)
[2019-07-29] MEDS: pantoprazole 40 mg SDV IVP ×2 (18:48→18:54)
[2019-07-29] MEDS: dextrose 5%-sod chloride 0.9% 1,000 ML 100 ML IV (18:48)
[2019-07-29 19:38] LABS: Folate Level 19.5 ng/mL (4.8-37.3)
[2019-07-29 20:11] LABS: Hepatitis A Antibody IgM Non-Reactive (Nonreactive); Hepatitis B Core AB, Total Non-Reactive (Nonreactive); Hepatitis B Surface AB 3.5 (0-8.5); Hepatitis B Surface Antigen Non-Reactive (Nonreactive); Hepatitis C Virus Antibody Non-Reactive (Nonreactive)
[2019-07-29] MEDS: sodium chloride 0.9% (100 ml) 100 ML (20:16)
--- NOTE | 2019-07-29 20:24 | PC.NURSE ---
Blood transfusion. Blood transfusion started at 20:15 with RN to verify and begin transfusion. Patient vitals are normal and tolerating well.
[2019-07-29 21:38] LABS: Glucose Point of Care 87 mg/dL (70-110)
[2019-07-29] MEDS: carbidopa-levodopa ER 50-200mg Tablet 1 EACH PO (21:58)
[2019-07-29] MEDS: trazodone 50 mg Tablet PO (21:58)
[2019-07-29 23:21] LABS: Hemoglobin 8.8 g/dL (11.5-15.3)
[2019-07-30] VITALS: BP 122/75; PULSE 65; RESP 16; TEMP 36.5; O2SAT 96
[2019-07-30 04:00] VITALS: BP 123/72; PULSE 65; RESP 18; TEMP 36.5; O2SAT 96
[2019-07-30 04:33] LABS: Basophils # 0.1 10^3/uL (0.0-0.1); Eosinophils # 0.3 10^3/uL (0.0-0.8); Eosinophils % 3.3 %; Hematocrit 29.7 % (37.0-47.0); Hemoglobin 9.4 g/dL (11.5-15.3); Mean Corpuscular HGB Conc 31.6 g/dL (30.0-36.0); Mean Corpuscular Hemoglobin 28.1 pg (28.0-34.0); Mean Corpuscular Volume 88.7 fL (81-99); Mean Platelet Volume 10.5 fL (7.4-10.4); Monocytes # 0.7 10^3/uL (0.2-0.9); Monocytes % 9.4 %; Neutrophils # 4.6 10^3/uL (1.8-7.7); Nucleated Red Blood Cells % 0 %; Platelet Count 276 10^3/cmm (130-400); Red Blood Count 3.35 10^6/uL (4.1-5.3); Red Cell Distribution Width 18.1 % (12.1-15.1); White Blood Count 7.6 10^3/uL (4.0-10.0)
[2019-07-30 05:06] LABS: Alanine Aminotransferase < 5 U/L (0-33); Albumin Level 3.1 g/dL (3.5-5.2); Alkaline Phosphatase 58 IU/L (35-105); Anion Gap 15.5 (5-19); Aspartate Amino Transferase 15 U/L (0-32); Blood Urea Nitrogen 34 mg/dL (8-23); Calcium 8.9 mg/dL (8.5-10.5); Carbon Dioxide 23 mmol/L (22-29); Chloride 107 mmol/L (98-107); Globulin 3.2 g/dL (1.3-4.6); Glucose 100 mg/dL (65-115); Magnesium 2.7 mg/dL (1.7-2.3); Osmolality Calculated 291 mOsm/kg (285-295); Phosphorus 3.8 mg/dL (2.5-4.5); Potassium 3.5 mmol/L (3.5-5.1); Sodium 142 mmol/L (136-145); Total Bilirubin 0.6 mg/dL (0.15-1.2); Total Protein 6.3 g/dL (6.6-8.7)
[2019-07-30 05:47] LABS: Estmated Average Glucose 105; Hemoglobin A1C 5.3 % (4.0-6.0)
[2019-07-30 06:32] LABS: Glucose Point of Care 124 mg/dL (70-110)
[2019-07-30 07:17] VITALS: BP 131/72; PULSE 65; RESP 18; TEMP 36.7; O2SAT 96
[2019-07-30] MEDS: ropinirole 1 mg Tablet PO (08:41)
[2019-07-30] MEDS: carvedilol 6.25 mg Tablet PO ×2 (08:41→17:17)
[2019-07-30] MEDS: atorvastatin 40 mg Tablet PO (08:41)
[2019-07-30] MEDS: ferrous sulfate EC 325 mg Tablet PO ×2 (08:41→17:17)
[2019-07-30] MEDS: magnesium oxide 400 mg tablet PO (08:41)
[2019-07-30] MEDS: carbidopa-levodopa ER 50-200mg Tablet 1 EACH PO ×3 (08:48→21:52)
[2019-07-30] MEDS: metroNIDAZOLE IV 500 MG/100 ML PREMIX 100 MG IV (08:49)
[2019-07-30] MEDS: pantoprazole 40 mg SDV IVP ×2 (08:49→17:17)
[2019-07-30] MEDS: acetaminophen 325 mg Tablet PO (10:27)
[2019-07-30] MEDS: ciprofloxacin 400 MG/200 ML PREMIX 200 MG IV (10:30)
[2019-07-30 11:23] LABS: Hematocrit 27.6 % (37.0-47.0); Hemoglobin 8.9 g/dL (11.5-15.3)
[2019-07-30 11:30] VITALS: BP 125/70; PULSE 67; RESP 18; TEMP 36.5; O2SAT 99
--- NOTE | 2019-07-30 11:35 | PC.CHAP ---
Pastoral Care Encounter/Spiritual Assessment Type of Contact [] Declined marketing financial analyst visit [] Patient/Family/Request visit [] Outpatient visit [] Follow-up visit [] Physician referral [] Code/Alert [x] Routine visit [] Staff referral [] Actively dying [] Patient sleeping [] Family support [] [] Out of room [] Palliative care [] [x] Receiving care in room [] Pre-surgical visit [] Trauma [] Long length of stay [] ICU visit [] Other: Relational/Emotional Strength [x] Patient feels connected with others/family/visitors/staff [] Distress [] Loneliness/isolation [] Abandonment Spirituality of Patient [x] Person of Britt [] Attends Druze of their Britt [x] Believes in Prayer [] Reads Bible or Jehovah'S Witness materials [] There are Spiritual issues to be addressed 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 Interventions [x] Prayer [x] Active listening [x] Non-anxious presence [x] Spiritual/emotional support [] Crisis/trauma care [x] Spiritual counseling [] Bereavement support [] Provided bereavement packet [] Provided Bible/devotional materials [] Provided toy/stuffed animal, coloring book to patient or family member [] Provided Communion [] Anointing/[place] [] Salvation [x] Completed spiritual assessment [] Other: Impact on Illness or Injury [] Angry [x] Fearful [] Anxious [] Often cries [] Exhaustion [x] Unable to work [] Unable to attend church [] Unable to walk/stand [] Unable to read [x] Unable to drive [] Unable to eat/drink [] Unable to sleep [] Unable to be with family [] Patient intubated [] Other: Summary stomch GI bleeding, doesn't know when she can go home, may need check on bleeding and healing of lesion Time spent with patient 10 mins
[2019-07-30 12:21] LABS: Glucose Point of Care 131 mg/dL (70-110)
[2019-07-30] MEDS: dextrose 5%-sod chloride 0.9% 1,000 ML 100 ML IV (12:27)
--- NOTE | 2019-07-30 13:59 | P.PN_ITS ---
Subjective Subjective: Interval history: This morning patient states that she had one episode of bloody stool with clots overnight, but had a regular bowel movement after that, has minimal abdominal pain, no nausea, no vomiting, no lightheadedness, no dizziness, no chest pain Vitals/I&O/Wt Last Vital Signs Temp 97.7 F 07/30/19 11:30 Pulse 67 07/30/19 11:30 Resp 18 07/30/19 11:30 BP 125/70 07/30/19 11:30 Pulse Ox 99 07/30/19 11:30 07/29/19 07/30/19 07/30/19 22:59 06:59 14:59 Intake Total 120 / 220 450 / 670 163.333 / 163.333 Balance 120 / 220 450 / 670 163.333 / 163.333 Weight last 48 hrs Weight 58.967 kg Physical Exam Const: COMMON NORMALS: no apparent distress and oriented x3 HENMT: COMMON NORMALS: normocephalic HEAD & SCALP: normocephalic Neck/C-Spine: COMMON NORMALS: no JVD Resp: COMMON NORMALS: normal respiratory effort, no retractions, no use of accessory muscles and clear to auscultation bilaterally AUSCULTATION: clear to auscultation bilaterally Cardio: COMMON NORMALS: no JVD, regular rate, regular rhythm, S1 normal heart sound and S2 normal heart sound RATE: regular rate RHYTHM: regular rhythm HEART SOUNDS: S1 normal and S2 normal GI: COMMON NORMALS: normal to inspection, nondistended, normoactive bowel sounds, soft to palpation, non-tender, no hepatosplenomegaly, no masses and no bruits PALPATION: Yes soft and Yes no hepatosplenomegaly Extremity: COMMON NORMALS: normal capillary refill, no clubbing, cyanosis or edema, no calf tenderness and no pedal edema Neuro: COMMON NORMALS: oriented x3 Psych: COMMON NORMALS: mental status grossly normal Data : 07/30/19 11:15 07/30/19 03:53 A&P Assessment and plan (1) Lower GI bleed: -Likely secondary to diverticular bleed, diverticulitis -Negative colonoscopy and EGD a few years ago -CT scan of the abdomen shows extensive descending and sigmoid diverticulosis. Mild inflammatory changes in the sigmoid colon consistent with acute diverticulitis. There is a focal soft tissue nodule measuring 2.1 x 1.4 cm associated with the sigmoid which could be an inflammatory or neoplastic process. There is surrounding edema. This soft tissue process is best seen on image 58 of series 2. -Hemoglobin is 8.9, status post 1 unit PRBC, patient's baseline hemoglobin 7-8 Plan: -Trend hemoglobins every 6 hours -Clear liquid diet -D5 normal saline at 100 cc an hour -Monitor for signs of bleeding -Protonix 40 IV twice daily -Given history of CAD, -Ciprofloxacin, Flagyl -Serial abdominal exams -Patient will require repeat CT scan in a few months to look at this possible inflammatory or neoplastic soft tissue nodule in the sigmoid, follow-up with surgeon as outpatient Full code DVT prophylaxis SCDs, anticoagulation contraindicated due to GI bleed Status: Acute (2) Diverticular hemorrhage: Status: Acute (3) Diverticulitis: Status: Acute (4) Liver cirrhosis: -CT scan evidence of liver cirrhosis and splenomegaly -CT scan shows marked cirrhosis, splenomegaly, -Hepatitis panel within normal limits, -B12 folate within normal limits, ferritin within normal limits -Liver function AST, ALT within normal limits, GGT within normal limits, alk phos within normal limits, albumin 3.1, INR 1.26 -We will need outpatient follow-up with GI Status: Acute (5) Moderate to severe pulmonary hypertension: Status: Chronic (6) Oxygen dependent: Status: Acute (7) Parkinsons disease: Status: Chronic (8) Hyperlipidemia: Status: Chronic (9) Hypertension: Status: Chronic (10) Diastolic heart failure: Status: Acute (11) Coronary artery disease: Status: Acute (12) Chronic kidney disease, stage III (moderate): Creatinine 1.9, baseline at 1.8 Status: Acute (13) Mitral regurgitation: Status: Acute (14) Type 2 diabetes mellitus: Low-dose sliding scale Status: Acute Attestations Medical Necessity Statement*: Requires hospitalization for GI bleed, diverticulitis Coding Level of Care Code 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
[2019-07-30 16:00] VITALS: BP 1116/60; PULSE 94; RESP 18; TEMP 36.5; O2SAT 97
--- NOTE | 2019-07-30 17:11 | US_ITS ---
WS: [id number] RIGHT UPPER QUADRANT ULTRASOUND HISTORY: liver cirrhosis COMPARISON: 07/29/2019 Liver: 17.6 cm in length. LEFT lobe of the liver is elongated. Otherwise liver is small and shrunken with increased caudate lobe. Very coarse echotexture. No intrahepatic duct dilatation. No mass. Gallbladder: Prior cholecystectomy. Common bile duct is prominent. CBD: 0.9 cm Pancreas: Obscured by bowel gas. Right kidney: 8.1 cm in length. RIGHT kidney is markedly atrophied. Diffuse cortical thinning. Increa sed echogenicity throughout the kidney. Aorta and IVC: Unremarkable. There is a small amount of ascites adjacent to the liver. US/US liver [id number] IMPRESSION: 1. Marked cirrhosis. 2. Prior cholecystectomy with physiologic dilatation of the common bile duct. 3. Small amount of perihepatic fluid. 4. Severe RIGHT renal atrophy.
[2019-07-30] MEDS: metroNIDAZOLE IV 500 MG/100 ML PREMIX IV (17:16)
[2019-07-30 17:44] LABS: Glucose Point of Care 279 mg/dL (70-110)
[2019-07-30 18:25] LABS: Hematocrit 27.3 % (37.0-47.0); Hemoglobin 8.7 g/dL (11.5-15.3)
[2019-07-30 20:00] VITALS: BP 100/64; PULSE 60; RESP 20; TEMP 36.5; O2SAT 96
[2019-07-30 21:12] LABS: Glucose Point of Care 87 mg/dL (70-110)
[2019-07-30] MEDS: trazodone 50 mg Tablet PO (21:52)
[2019-07-30 23:21] LABS: Hematocrit 27.5 % (37.0-47.0); Hemoglobin 8.7 g/dL (11.5-15.3)
[2019-07-31] VITALS: PULSE 59; RESP 18; TEMP 36.6; O2SAT 95
[2019-07-31] MEDS: metroNIDAZOLE IV 500 MG/100 ML PREMIX IV ×2 (01:41→08:52)
[2019-07-31] MEDS: dextrose 5%-sod chloride 0.9% 1,000 ML 100 ML IV (02:52)
[2019-07-31 04:00] VITALS: BP 114/68; PULSE 66; RESP 18; TEMP 36.4; O2SAT 96
[2019-07-31 05:48] LABS: Basophils # 0.1 10^3/uL (0.0-0.1); Basophils % 0.5 %; Eosinophils # 0.4 10^3/uL (0.0-0.8); Eosinophils % 4.1 %; Hematocrit 29.5 % (37.0-47.0); Hemoglobin 9.2 g/dL (11.5-15.3); Lymphocytes # 2.2 10^3/uL (0.8-4.8); Lymphocytes % 22.8 %; Mean Corpuscular HGB Conc 31.2 g/dL (30.0-36.0); Mean Corpuscular Hemoglobin 28.2 pg (28.0-34.0); Mean Corpuscular Volume 90.5 fL (81-99); Mean Platelet Volume 10.5 fL (7.4-10.4); Monocytes # 1.2 10^3/uL (0.2-0.9); Monocytes % 12.7 %; Neutrophils # 5.6 10^3/uL (1.8-7.7); Neutrophils % 59.5 %; Nucleated Red Blood Cells % 0 %; Platelet Count 245 10^3/cmm (130-400); Red Blood Count 3.26 10^6/uL (4.1-5.3); Red Cell Distribution Width 18.6 % (12.1-15.1); White Blood Count 9.5 10^3/uL (4.0-10.0)
[2019-07-31 06:41] LABS: Alanine Aminotransferase < 5 U/L (0-33); Albumin Level 2.8 g/dL (3.5-5.2); Alkaline Phosphatase 52 IU/L (35-105); Anion Gap 13.4 (5-19); Aspartate Amino Transferase 19 U/L (0-32); Blood Urea Nitrogen 29 mg/dL (8-23); Calcium 8.5 mg/dL (8.5-10.5); Carbon Dioxide 18 mmol/L (22-29); Chloride 109 mmol/L (98-107); Globulin 3.3 g/dL (1.3-4.6); Glucose 120 mg/dL (65-115); Magnesium 2.7 mg/dL (1.7-2.3); Osmolality Calculated 282 mOsm/kg (285-295); Potassium 3.4 mmol/L (3.5-5.1); Sodium 137 mmol/L (136-145); Total Bilirubin 0.4 mg/dL (0.15-1.2); Total Protein 6.1 g/dL (6.6-8.7)
[2019-07-31 08:00] VITALS: BP 126/63; PULSE 75; RESP 18; TEMP 36.6; O2SAT 97
[2019-07-31] MEDS: ropinirole 1 mg Tablet PO (08:51)
[2019-07-31] MEDS: atorvastatin 40 mg Tablet PO (08:51)
[2019-07-31] MEDS: magnesium oxide 400 mg tablet PO (08:51)
[2019-07-31] MEDS: ferrous sulfate EC 325 mg Tablet PO (08:51)
[2019-07-31] MEDS: carvedilol 6.25 mg Tablet PO (08:51)
[2019-07-31] MEDS: potassium chloride premix 40 MEQ/100 ML PREMIX 25 MEQ IV (08:55)
[2019-07-31] MEDS: pantoprazole 40 mg SDV IVP (09:13)
[2019-07-31] MEDS: carbidopa-levodopa ER 50-200mg Tablet 1 EACH PO (09:41)
[2019-07-31] MEDS: sodium chloride 0.9% (100 ml) 100 ML 30 ML (09:45)
[2019-07-31 11:02] LABS: Glucose Point of Care 191 mg/dL (70-110)
--- NOTE | 2019-07-31 11:26 | P.DS_ITS ---
Discharge Providers Date of Admission: 07/29/19 12:13 Date of Discharge: July 31, 2019 Attending Provider at Admission: Gordon Murillo MD Attending Provider at Discharge: Gordon Murillo MD Diagnoses at Discharge Discharge Diagnosis (1) Lower GI bleed: Status: Acute (2) Diverticular hemorrhage: Status: Acute (3) Diverticulitis: Status: Acute (4) Liver cirrhosis: Status: Acute (5) Moderate to severe pulmonary hypertension: Status: Chronic (6) Oxygen dependent: Status: Acute Problem details: 2L per NC (7) Parkinsons disease: Status: Chronic (8) Hyperlipidemia: Status: Chronic (9) Hypertension: Status: Chronic (10) Diastolic heart failure: Status: Acute (11) Coronary artery disease: Status: Acute (12) Chronic kidney disease, stage III (moderate): Status: Acute Problem details: Stable, improved (13) Mitral regurgitation: Status: Acute Problem details: Last echocardiogram 2013 (14) Type 2 diabetes mellitus: Status: Acute Problem details: Stable Reason for Visit Reason for Visit: Reason For Visit: Poss GI bleed Hospital Course Discharge Summary: Chelsi Berger is a 79 year old female with a past medical history of insulin-dependent type 2 diabetes mellitus, chronic kidney disease stage III, CAD status post stenting x1, chronic anemia, diastolic heart failure, restless leg syndrome, hyperlipidemia, hypertension, moderate pulmonary hypertension, moderate to severe mitral regurg, who presents to [facility] for bloody stools. She had an EGD a few years ago which was unremarkable. She denies a history of diverticulitis or diverticular bleed in the past. She does have a history of anemia, she was transfused on her last admission in March for anemia. Her anemia has been multifactorial secondary end-stage renal disease Patient was admitted to [facility] for lower GI bleed secondary to diverticular bleed, diverticulitis, had negative colonoscopy and EGD a few years ago, CT scan of the abdomen showed extensive descending and sigmoid diverticulosis, Mild inflammatory changes in the sigmoid colon consistent with acute diverticulitis, There is a focal soft tissue nodule measuring 2.1 x 1.4 cm associated with the sigmoid which could be an inflammatory or neoplastic process, There is surrounding edema, This soft tissue process is best seen on image 58 of series 2. Patient's hemoglobin was 8, baseline hemoglobin 7-8. Patient received 1 unit PRBC. Patient on admission refused surgical intervention, did not want a EGD or colonoscopy, but would only elect for it if absolutely required. She was admitted on broad-spectrum antibiotics ciprofloxacin and Flagyl, serial abdominal exams, normal saline, and her clinical status was monitored for the next 24 hours. Patient clinically improved, abdominal pain improved, abdominal exams improved, bloody stools ceased, she had regular bowel movements. She was discharged on Augmentin for 12 remaining days, [place] for pain control, Zofran for nausea, and close follow-up with general surgery as outpatient. Particularly, she is to follow-up with surgery for this focal soft tissue nodule associate with a sigmoid that could possibly be a neoplastic process. Patient was advised if she were to have recurrence of abdominal pain, bloody stools to come back to the emergency room. Patient is to repeat a CBC in 1 week. On admission patient was also found to have severe liver cirrhosis, seen on ultrasound and CT, with splenomegaly, hepatitis panel within normal limits, ferritin within normal limits, liver function within normal limits, INR 1.26, albumin 2.8. Patient was discharged with a follow-up with gastroenterology as outpatient for liver biopsy and work-up for cirrhosis. Physical Exam Const: COMMON NORMALS: no acute distress and patient oriented x3 HENMT: COMMON NORMALS: normocephalic HEAD & SCALP: normocephalic Neck/C-Spine: COMMON NORMALS: no JVD Resp: COMMON NORMALS: normal respiratory effort, No retractions, No use of accessory muscles and clear to auscultation bilaterally AUSCULTATION: clear to auscultation bilaterally Cardio: COMMON NORMALS: no JVD, regular rate, regular rhythm, S1 normal heart sound present and S2 normal heart sound present RATE: regular rate RHYTHM: regular rhythm HEART SOUNDS: S1 normal heart sound present and S2 normal he art sound present GI: COMMON NORMALS: Normal to inspection, nondistended, normoactive bowel sounds present, Soft to palpation, non-tender, No hepatosplenomegaly present, no masses and no bruits PALPATION: Yes Soft to palpation and Yes No hepatosplenomegaly present Extremity: COMMON NORMALS: capillary refill normal, no clubbing, cyanosis or edema, no calf tenderness and no pedal edema Neuro: COMMON NORMALS: patient oriented x3 Psych: COMMON NORMALS: mental status grossly normal Discharge Data Data Completed and Pending: Completed Studies During Hospitalization Category Date Time Status CT abdomen pelvis w con* [id number] Stat Cat Scan 07/29/19 07:41 [place] liver [id number] Ro utine Ultrasound 07/30/19 17:11 Completed Pending at discharge Category Date Time Status NALINI Profile Rheum atology Stat Lab 07/29/19 17:30 Received Complete Blood Co unt w/Auto AM LABS Lab 08/01/19 04:00 Ordered Complete Blood Co unt w/Auto AM LABS Lab 08/02/19 04:00 Ordered Comprehensive Met abolic Panel AM LA BS Lab 08/01/19 04:00 Ordered Hemoglobin and He matocrit Q6H Lab 07/31/19 11:11 Ordered Magnesium AM LABS Lab 08/01/19 04:00 Ordered Phosphorus AM LAB S Lab 08/01/19 04:00 Ordered Labs from last 24 hours 07/31/19 07/31/19 07/31/19 10:54 05:09 05:09 WBC 9.5 RBC 3.26 L Hgb 9.2 L Hct 29.5 L MCV 90.5 MCH 28.2 MCHC 31.2 RDW 18.6 H Plt Count 245 MPV 10.5 H Neut % (Auto) 59.5 Lymph % (Auto) 22.8 [place] % (Auto) 12.7 Eos % (Auto) 4.1 Baso % (Auto) 0.5 Neut # (Auto) 5.6 Lymph # (Auto) 2.2 [place] # (Auto) 1.2 H Eos # (Auto) 0.4 Baso # (Auto) 0.1 Nucleated RBC % (a uto) 0 Nucleated RBCs # 0.0 Sodium 137 Potassium 3.4 L Chloride 109 H Carbon Dioxide 18 L Anion Gap 13.4 BUN 29 H Creatinine 1.7 H Glucose 120 H POC Glucose 191 Calculated Osmolal ity 282 L Calcium 8.5 Phosphorus 3.0 Magnesium 2.7 H Total Bilirubin 0.4 AST 19 ALT < 5 Alkaline Phosphata se 52 Total Protein 6.1 L Albumin 2.8 L Globulin 3.3 07/30/19 07/30/19 07/30/19 23:05 21:08 17:40 WBC RBC Hgb 8.7 L 8.7 L Hct 27.5 L 27.3 L MCV MCH MCHC RDW Plt Count MPV Neut % (Auto) Lymph % (Auto) [place] % (Auto) Eos % (Auto) Baso % (Auto) Neut # (Auto) Lymph # (Auto) [place] # (Auto) Eos # (Auto) Baso # (Auto) Nucleated RBC % (a uto) Nucleated RBCs # Sodium Potassium Chloride Carbon Dioxide Anion Gap BUN Creatinine Glucose POC Glucose 87 Calculated Osmolal ity Calcium Phosphorus Magnesium Total Bilirubin AST ALT Alkaline Phosphata se Total Protein Albumin Globulin 07/30/19 07/30/19 17:36 10:47 WBC RBC Hgb Hct MCV MCH MCHC RDW Plt Count MPV Neut % (Auto) Lymph % (Auto) [place] % (Auto) Eos % (Auto) Baso % (Auto) Neut # (Auto) Lymph # (Auto) [place] # (Auto) Eos # (Auto) Baso # (Auto) Nucleated RBC % (a uto) Nucleated RBCs # Sodium Potassium Chloride Carbon Dioxide Anion Gap BUN Creatinine Glucose POC Glucose 279 131 Calculated Osmolal ity Calcium Phosphorus Magnesium Total Bilirubin AST ALT Alkaline Phosphata se Total Protein Albumin Globulin Vitals: Last Vital Signs Temp 97.8 F 07/31/19 08:00 Pulse 75 07/31/19 08:00 Resp 18 07/31/19 08:00 BP 126/63 07/31/19 08:00 Pulse Ox 97 07/31/19 08:00 Discharge Plan Discharge Patient Disposition: Home, Self-Care Condition: Stable Prescriptions: New Augmentin 875-125 mg tablet 1 tab PO Q8H 12 Days Qty: 36 RF: 0 [place] 5-325 mg tablet 1 tab PO Q12H PRN (Reason: pain) 12 Days Qty: 24 RF: 0 Zofran 4 mg tablet 4 mg PO Q12H PRN (Reason: nausea and vomiting) 12 Days Qty: 24 RF: 0 Continued mag oxide 400 mg PO DAILY RF: 0 atorvastatin [Lipitor] 40 mg Tablet 40 mg PO DAILY RF: 0 acetaminophen [Tylenol] 325 mg Tablet 325 mg PO PRN PRN (Reason: Pain) RF: 0 carvedilol [Coreg] 6.25 mg Tablet 6.25 mg PO BID RF: 0 ropinirole 1 mg Tablet 1 mg PO DAILY RF: 0 carbidopa-levodopa [Sinemet CR] 50-200 mg Tablet Extended Release 1 tab PO TID RF: 0 entacapone 200 mg Tablet 200 mg PO TID RF: 0 insulin aspart U-100 [Novolog U-100 Insulin aspart] 100 unit/mL Solution See Rx Instructions .ROUTE .COMPLEX RF: 0 Multi For Her 18 mg iron-600 mcg-40 mcg Capsule 1 tab-cap PO DAILY RF: 0 melatonin 10 mg Tablet 30 mg PO BEDTIME RF: 0 Tresiba FlexTouch U-100 100 unit/mL (3 mL) Insulin Pen 10 unit SUBCUT BEDTIME RF: 0 furosemide 40 mg Tablet 40 mg PO DAILY@0800 Qty: 30 RF: 0 pantoprazole 40 mg Tablet,Delayed Release (Dr/Ec) 40 mg PO DAILY Qty: 30 RF: 0 ferrous sulfate 325 mg (65 mg iron) tablet,delayed release (DR/EC) 325 mg PO BID Qty: 60 RF: 0 trazodone 50 mg Tablet 50 mg PO BEDTIME RF: 0 Discontinued tramadol [Ultram] 50 mg Tablet 50 mg PO QID PRN (Reason: Pain) RF: 0 Other Ambulatory Orders: Complete Blood Count w/Auto (Routine) Timeframe: 1 Week Location: Determined by Patient Ordered By: Gordon Murillo Referrals: Edgar Zapata MD [Physician] - 1 week (DIVERTICULITIS, SOFT TISSUE NODULE, MASS?) Discharge Diet: Soft Mechanical Discharge Activity: Resume usual activity Patient Instructions: Diverticulitis (GEN), Rectal Bleeding (GEN), Diverticulitis Diet (GEN) Activity Restrictions/Additional Instructions: -Please drink plenty of electrolyte balance fluids -Please take antibiotics as prescribed -Please follow-up with general surgery in 1 week -If you have recurrent bloody or black stools, recurrent abdominal pain please come back to the emergency room Discharge Attestations Time Spent in Discharge Care*: less than 30 min Quality Metrics Clinical Quality Measures During this hospital stay, did patient experience: None Coding Level 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
[2019-07-31 11:37] LABS: Hemoglobin 9.1 g/dL (11.5-15.3)
[2019-07-31 12:00] VITALS: BP 126/63; PULSE 75; TEMP 36.6; O2SAT 97
[2019-07-31 13:10] LABS: COMPLEMENT COMPONENT C3C 79 mg/dL; COMPLEMENT COMPONENT C4C 22 mg/dL; COMPLEMENT, TOTAL (CH50) 45 U/mL (31-60)
[2019-07-31 13:35] LABS: CENTROMERE B ANTIBODY <1.0 NEG AI (<1.0 NEG); JO-1 ANTIBODY <1.0 NEG AI (<1.0 NEG); RNP ANTIBODY <1.0 NEG AI (<1.0 NEG); SCL-70 ANTIBODY <1.0 NEG AI (<1.0 NEG); SJOGREN'S ANTIBODY (SS-A) <1.0 NEG AI (<1.0 NEG); SM ANTIBODY <1.0 NEG AI (<1.0 NEG)
[2019-07-31 13:50] VITALS: BP 126/63; PULSE 75; TEMP 36.6; O2SAT 97
[2019-07-31 14:36] LABS: ANA SCREEN, IFA NEGATIVE (NEGATIVE)
[2019-07-31 15:30] LABS: THYROID PEROXIDASE ANTIBODIES 2 IU/mL (<9)
[2019-08-03 22:20] LABS: DNA AB (DS) CRITHIDIA,IFA NEGATIVE (NEGATIVE)
== END 2019-07-31 14:58 | disposition home or self-care (01) | DRG 378 ==
LOC: ER 16:03 → MEDSURG 16:05
PROVIDERS: Admitting Provider Family Medicine; Emergency Provider Family Medicine; PCP Physician Assistant; Visit Provider Family Medicine
DX: K57.31 Diverticulosis of large intestine without perforation or abscess with bleeding (principal); I13.0 Hypertensive heart and chronic kidney disease with heart failure and stage 1 through stage 4 chronic kidney disease, or unspecified chronic kidney disease; I50.32 Chronic diastolic (congestive) heart failure; Z99.81 Dependence on supplemental oxygen; G20 Parkinson's disease; I27.20 Pulmonary hypertension, unspecified; I25.10 Atherosclerotic heart disease of native coronary artery without angina pectoris; Z95.5 Presence of coronary angioplasty implant and graft; G25.81 Restless legs syndrome; E78.5 Hyperlipidemia, unspecified; I34.0 Nonrheumatic mitral (valve) insufficiency; E11.22 Type 2 diabetes mellitus with diabetic chronic kidney disease; N18.3 Chronic kidney disease, stage 3 (moderate); Z79.4 Long term (current) use of insulin; D63.1 Anemia in chronic kidney disease; K74.60 Unspecified cirrhosis of liver
CPT/HCPCS: 12345; 36415; 36416; 36430; 74177; 76705; 80053; 81001; 82607; 82728; 82746; 82962; 82977; 83036; 83540; 83550; 83605; 83690; 83735; 84100; 85014; 85018; 85025; 85045; 85610; 85730; 86140; 86705; 86706; 86709; 86803; 86850; 86900; 86920; 87340; 94664; 96372; 96375; 97161; 97165; 97530; 97535; 99282; C9113; J0744; J1815; J3480; J7040; P9016; Q9967; S0030

== ENCOUNTER 2019-08-05 17:46 | Emergency (ER) | payer MEDICARE, MEDICAID, SELFPAY ==
[2019-08-05] VITALS (7 sets, daily range): BP systolic 113–157; BP diastolic 53–75; PULSE 54–75; RESP 12–18; TEMP 35.8–36.6; O2SAT 93–100; BMI 25.4
--- NOTE | 2019-08-05 18:04 | W.ED.GIBLEED ---
HPI - GI Bleed General: Chief complaint: GI Bleed Stated complaint: rectal bleeding Time Seen by Provider: 08/05/19 17:55 History of Present Illness: HPI Narrative: Patient reports bleeding from her rectum. She was here last week with a GI bleed and had beenok at home until after lunch today when it started up again. She has had bright red blood per rectum several times since then. No abdominal pain but she has some nausea and dizziness with sitting or standing. No chest pain. on her last visit her declined a colonoscopy - CT showed an area of inflammation or mass in the colon and she was instructed to follow up as outpatient. She does not take blood thinners but is noted to have many areas of bruising on her hands and arms. complaint: gross hematochezia Onset (ago): hour(s) (4) Severity: moderate Relieving factors: none Exacerbating factors: none Context: history of GI bleed Associated symptoms: Reports easy bruising, malaise and nausea; Denies abdominal pain, epistaxis or fever(s) Review of Systems General: Reports: 10 or more systems reviewed and unremarkable except in HPI and below Const: Reports: malaise; Denies: fever(s) ENMT: Denies: epistaxis Card: Denies: chest pain Resp: Denies: dyspnea, productive cough or non-productive cough GI: Reports: nausea; Denies: abdominal pain Neuro: Reports: dizziness Rashard/Lymph: Reports: easy bruising [facility] ED PFSH: Medical History Hyperlipidemia Hypertension Surgical History History of coronary artery stent placement 2007 History of tonsillectomy and adenoidectomy Hx of appendectomy Hx of cholecystectomy Hx of hysterectomy Family History Mother CAD (coronary artery disease) Myocardial infarction Diabetes Hypertension Social History Smoking and tobacco status: never smoked Alcohol intake: never Physical Exam Const: COMMON NORMALS: no acute distress, patient oriented x3 and alert (tearful) GENERAL APPEARANCE: cooperative, well developed and anxious Chest: COMMONS NORMALS: normal inspection of the chest Resp: COMMON NORMALS: normal respiratory effort, No use of accessory muscles and clear to auscultation bilaterally AUSCULTATION: clear to auscultation bilaterally Cardio: COMMON NORMALS: regular rate, regular rhythm and No murmurs present (Cardio) RATE: regular rate RHYTHM: regular rhythm GI: COMMON NORMALS: Normal to inspection, nondistended, normoactive bowel sounds present, Soft to palpation and non-tender PALPATION: Yes Soft to palpation Extremity: COMMON NORMALS: normal to inspection NARRATIVE EXTREMITY EXAM: lots of ecchymotic areas on arms and hands Neuro: COMMON NORMALS: patient oriented x3 SENSORIUM/ORIENTATION: Yes alert (tearful) Skin: COMMON NORMALS: no wounds (ecchymosis and skin tears) Procedures Central Line Placement Left IJ: Time Out Performed: Yes Patient Placed on Monitor/Pulse Ox: Yes MD Prep: mask, gown, gloves and other (bouffant) Central Line Prep: Chlorhexidine scrub and sterile drapes applied Local Anesthetic: lidocaine 1% Amount of anesthesia used (mL): 6 Ultrasound Used for Placement: Yes Central Line Lumen Inserted: triple Post Procedure: sutured in place, good blood return and all ports aspirated, flushed, capped (brown prt initially cheli, but on final flush only flushed - did not draw) Post Procedure X-Ray: other (pending) Patient Tolerated Procedure: well Complications: arterial puncture/cannulation (on the right side - pressure held and procedure moved to the left side) Course Reevaluation(s): Reevaluation #1: Patient filled a bed castellanos with bright red blood. Vitals remain good. Hgb 7.5 - down from 9.1 on 07/30. Creatinine 2.1 up from normal previously. Time: 19:06 Reevaluation #2: Patient with another large bowel movement of blood and clots. No ICU beds here and she is not appropriate for a floor admit. She prefers [facility] in [place]. Time: 21:00 Reevaluation #3: HGB down to 6.4 - blood still not ready - Labs estimated 4 minute until it is ready. Time: 21:22 Consultations: Consultation #1: josh Ng - admit to ICU Time: 19:15 Consultation #2: sari Marsh, admit to ICU. Time: 19:15 Vital Signs: Vital signs: Vital Signs Temperature 96.6 F L 08/05/19 22:05 Pulse Rate 59 L 08/05/19 22:05 Respiratory Rate 12 08/05/19 22:05 Blood Pressure 157/75 08/05/19 22:05 Pulse Oximetry 100 08/05/19 21:59 MDM - GI Bleed Lab Data: Labs: Lab Results 08/05/19 08/05/19 08/05/19 Range/Units 16:28 16:28 16:28 WBC 8.5 (4.0-10.0) 10^3/ uL RBC 2.64 L (4.1-5.3) 10^6/u L Hgb 7.5 L (11.5-15.3) g/dL Hct 24.1 L (37.0-47.0) % MCV 91.3 (81-99) fL MCH 28.4 (28.0-34.0) pg MCHC 31.1 (30.0-36.0) g/dL RDW 18.5 H (12.1-15.1) % Plt Count 267 (130-400) 10^3/c mm MPV 10.3 (7.4-10.4) fL Neut % (Auto) 60.8 % Lymph % (Auto) 23.8 % Hinds % (Auto) 8.8 % Eos % (Auto) 5.6 % Baso % (Auto) 0.6 % Neut # (Auto) 5.2 (1.8-7.7) 10^3/u L Lymph # (Auto) 2.0 (0.8-4.8) 10^3/u L Hinds # (Auto) 0.8 (0.2-0.9) 10^3/u L Eos # (Auto) 0.5 (0.0-0.8) 10^3/u L Baso # (Auto) 0.1 (0.0-0.1) 10^3/u L Nucleated RBC % (a uto) 0 % Nucleated RBCs # 0.0 /100WBC PT 16.90 H (10.5-13.3) SECO NDS INR 1.33 H (0.8-1.2) Sodium 138 (136-145) mmol/L Potassium 3.4 L (3.5-5.1) mmol/L Chloride 106 (98-107) mmol/L Carbon Dioxide 21 L (22-29) mmol/L Anion Gap 14.4 (5-19) BUN 29 H (8-23) mg/dL Creatinine 2.1 H (0.5-0.9) mg/dL Glucose 66 (65-115) mg/dL POC Glucose (70-110) mg/dL Calculated Osmolal ity 281 L (285-295) mOsm/k g Calcium 7.8 L (8.5-10.5) mg/dL Total Bilirubin 0.2 (0.15-1.2) mg/dL AST 14 (0-32) U/L ALT < 5 (0-33) U/L Alkaline Phosphata se 52 (35-105) IU/L Total Protein 5.4 L (6.6-8.7) g/dL Albumin 2.7 L (3.5-5.2) g/dL Globulin 2.7 (1.3-4.6) g/dL Lipase 68 H (13-60) U/L Blood Type Rho(D) Type Antibody Screen Crossmatch 08/05/19 08/05/19 08/05/19 Range/Units 19:10 20:36 21:17 WBC (4.0-10.0) 10^3/ uL RBC (4.1-5.3) 10^6/u L Hgb 6.4 L* (11.5-15.3) g/dL Hct (37.0-47.0) % MCV (81-99) fL MCH (28.0-34.0) pg MCHC (30.0-36.0) g/dL RDW (12.1-15.1) % Plt Count (130-400) 10^3/c mm MPV (7.4-10.4) fL Neut % (Auto) % Lymph % (Auto) % Hinds % (Auto) % Eos % (Auto) % Baso % (Auto) % Neut # (Auto) (1.8-7.7) 10^3/u L Lymph # (Auto) (0.8-4.8) 10^3/u L Hinds # (Auto) (0.2-0.9) 10^3/u L Eos # (Auto) (0.0-0.8) 10^3/u L Baso # (Auto) (0.0-0.1) 10^3/u L Nucleated RBC % (a uto) % Nucleated RBCs # /100WBC PT (10.5-13.3) SECO NDS INR (0.8-1.2) Sodium (136-145) mmol/L Potassium (3.5-5.1) mmol/L Chloride (98-107) mmol/L Carbon Dioxide (22-29) mmol/L Anion Gap (5-19) BUN (8-23) mg/dL Creatinine (0.5-0.9) mg/dL Glucose (65-115) mg/dL POC Glucose 42 (70-110) mg/dL Calculated Osmolal ity (285-295) mOsm/k g Calcium (8.5-10.5) mg/dL Total Bilirubin (0.15-1.2) mg/dL AST (0-32) U/L ALT (0-33) U/L Alkaline Phosphata se (35-105) IU/L Total Protein (6.6-8.7) g/dL Albumin (3.5-5.2) g/dL Globulin (1.3-4.6) g/dL Lipase (13-60) U/L Blood Type A Positive Rho(D) Type Positive Antibody Screen Negative Crossmatch See Detail 08/05/19 Range/Units 22:08 WBC (4.0-10.0) 10^3/ uL RBC (4.1-5.3) 10^6/u L Hgb (11.5-15.3) g/dL Hct (37.0-47.0) % MCV (81-99) fL MCH (28.0-34.0) pg MCHC (30.0-36.0) g/dL RDW (12.1-15.1) % Plt Count (130-400) 10^3/c mm MPV (7.4-10.4) fL Neut % (Auto) % Lymph % (Auto) % Hinds % (Auto) % Eos % (Auto) % Baso % (Auto) % Neut # (Auto) (1.8-7.7) 10^3/u L Lymph # (Auto) (0.8-4.8) 10^3/u L Hinds # (Auto) (0.2-0.9) 10^3/u L Eos # (Auto) (0.0-0.8) 10^3/u L Baso # (Auto) (0.0-0.1) 10^3/u L Nucleated RBC % (a uto) % Nucleated RBCs # /100WBC PT (10.5-13.3) SECO NDS INR (0.8-1.2) Sodium (136-145) mmol/L Potassium (3.5-5.1) mmol/L Chloride (98-107) mmol/L Carbon Dioxide (22-29) mmol/L Anion Gap (5-19) BUN (8-23) mg/dL Creatinine (0.5-0.9) mg/dL Glucose (65-115) mg/dL POC Glucose 134 (70-110) mg/dL Calculated Osmolal ity (285-295) mOsm/k g Calcium (8.5-10.5) mg/dL Total Bilirubin (0.15-1.2) mg/dL AST (0-32) U/L ALT (0-33) U/L Alkaline Phosphata se (35-105) IU/L Total Protein (6.6-8.7) g/dL Albumin (3.5-5.2) g/dL Globulin (1.3-4.6) g/dL Lipase (13-60) U/L Blood Type Rho(D) Type Antibody Screen Crossmatch Critical Care Time Critical Care Time: Critical Care Time: Yes Total Critical Care Time: 45 Attestation: I spent 45 minutes on the critical care for this patient - excluding central line placement. This time included monitoring of vital signs, assessing labs, fluid administration, consultation with multiple team members and time spent arranging transfer. Discharge Plan Discharge Condition: Good Prescriptions: No Action mag oxide 400 mg PO DAILY RF: 0 atorvastatin [Lipitor] 40 mg Tablet 40 mg PO DAILY RF: 0 acetaminophen [Tylenol] 325 mg Tablet 325 mg PO PRN PRN (Reason: Pain) RF: 0 carvedilol [Coreg] 6.25 mg Tablet 6.25 mg PO BID RF: 0 ropinirole 1 mg Tablet 1 mg PO DAILY RF: 0 carbidopa-levodopa [Sinemet CR] 50-200 mg Tablet Extended Release 1 tab PO TID RF: 0 entacapone 200 mg Tablet 200 mg PO TID RF: 0 insulin aspart U-100 [Novolog U-100 Insulin aspart] 100 unit/mL Solution See Rx Instructions .ROUTE .COMPLEX RF: 0 Multi For Her 18 mg iron-600 mcg-40 mcg Capsule 1 tab-cap PO DAILY RF: 0 melatonin 10 mg Tablet 30 mg PO BEDTIME RF: 0 Tresiba FlexTouch U-100 100 unit/mL (3 mL) Insulin Pen 10 unit SUBCUT BEDTIME RF: 0 ferrous sulfate 325 mg (65 mg iron) tablet,delayed release (DR/EC) 325 mg PO BID Qty: 60 RF: 0 tramadol 50 mg tablet 50 mg PO QID PRN (Reason: Pain) RF: 0 Augmentin 1 tab PO Q8H RF: 0 trazodone 50 mg Tablet 50 mg PO BEDTIME RF: 0 amoxicillin-pot clavulanate [Augmentin] 875-125 mg tablet 1 tab PO Q8H 12 Days Qty: 36 RF: 0 hydrocodone-acetaminophen [[place]] 5-325 mg tablet 1 tab PO Q12H PRN (Reason: pain) 12 Days Qty: 24 RF: 0 ondansetron HCl [Zofran] 4 mg tablet 4 mg PO Q12H PRN (Reason: nausea and vomiting) 12 Days Qty: 24 RF: 0 Referrals: Marcelina Yan PA [Primary Care Provider] - Discharge Date/Time: 08/05/19 22:28 Coding Level of Care Code ED Embossing Calender Operator for Chg Fwd Exam Detailed
[2019-08-05 18:36] LABS: Basophils # 0.1 10^3/uL (0.0-0.1); Basophils % 0.6 %; Eosinophils # 0.5 10^3/uL (0.0-0.8); Eosinophils % 5.6 %; Hematocrit 24.1 % (37.0-47.0); Hemoglobin 7.5 g/dL (11.5-15.3); Lymphocytes % 23.8 %; Mean Corpuscular HGB Conc 31.1 g/dL (30.0-36.0); Mean Corpuscular Hemoglobin 28.4 pg (28.0-34.0); Mean Corpuscular Volume 91.3 fL (81-99); Mean Platelet Volume 10.3 fL (7.4-10.4); Monocytes # 0.8 10^3/uL (0.2-0.9); Monocytes % 8.8 %; Neutrophils # 5.2 10^3/uL (1.8-7.7); Neutrophils % 60.8 %; Nucleated Red Blood Cells % 0 %; Platelet Count 267 10^3/cmm (130-400); Red Blood Count 2.64 10^6/uL (4.1-5.3); Red Cell Distribution Width 18.5 % (12.1-15.1); White Blood Count 8.5 10^3/uL (4.0-10.0)
[2019-08-05 18:44] LABS: INR 1.33 (0.8-1.2)
[2019-08-05 18:49] LABS: Alanine Aminotransferase < 5 U/L (0-33); Albumin Level 2.7 g/dL (3.5-5.2); Alkaline Phosphatase 52 IU/L (35-105); Anion Gap 14.4 (5-19); Aspartate Amino Transferase 14 U/L (0-32); Blood Urea Nitrogen 29 mg/dL (8-23); Calcium 7.8 mg/dL (8.5-10.5); Carbon Dioxide 21 mmol/L (22-29); Chloride 106 mmol/L (98-107); Globulin 2.7 g/dL (1.3-4.6); Glucose 66 mg/dL (65-115); Lipase 68 U/L (13-60); Osmolality Calculated 281 mOsm/kg (285-295); Potassium 3.4 mmol/L (3.5-5.1); Sodium 138 mmol/L (136-145); Total Bilirubin 0.2 mg/dL (0.15-1.2); Total Protein 5.4 g/dL (6.6-8.7)
--- NOTE | 2019-08-05 19:21 | P.HP_ITS ---
Providers/Chief Complaint Primary Care Provider: Marcelina Yan Chief Complaint: rectal bleeding History of Present Illness Chelsi Berger is a 79 year old female with a past medical history of insulin- dependent type 2 diabetes mellitus, chronic kidney disease stage III, CAD status post stenting x1, chronic anemia, diastolic heart failure, restless leg syndrome, hyperlipidemia, hypertension, moderate pulmonary hypertension, moderat e to severe mitral regurgitation, who presents to [facility] for bloody stools today. Her Hb on recent discharge was 9.1, she returns today at 7.5. Noted to have bloody bowel movement in the ER. She is hemodynamically stable, afebrile at this present time. Labs also notable for NAGI on CKD with cr 2.1. Blood transfusion has been ordered in ER, yet to start. due to poor iv access, central line has been placed. she states having ongoing vianney since discharge, however noted to have BRBPR in the ED with numerous clots. Recently admitted here and discharged on 07/30. From discharge summary, patient was admitted to [facility] for lower GI bleed secondary to diverticular bleed, diverticulitis, CT scan of the abdomen showed extensive descending and sigmoid diverticulosis, Mild inflammatory changes in the sigmoid colon consistent with acute diverticulitis, There is a focal soft tissue nodule measuring 2.1 x 1.4 cm associated with the sigmoid which could be an inflammatory or neoplastic process. Patient's hemoglobin was 8, baseline hemoglobin 7-8. Patient received 1 unit PRBC. Patient on admission refused surgical intervention, did not want a EGD or colonoscopy. She was admitted on broad-spectrum antibiotics ciprofloxacin and Flagyl, serial abdominal exams, normal saline, and her clinical status was monitored for the next 24 hours. Patient clinically improved, abdominal pain improved, abdominal exams improved, bloody stools ceased, she had regular bowel movements. She was discharged on Augmentin for 12 remaining days, [place] for pain control, Zofran for nausea, and close follow-up with general surgery as outpatient. Particularly, she is to follow-up with surgery for this focal soft tissue nodule associate with a sigmoid that could possibly be a neoplastic process. Patient was advised if she were to have recurrence of abdominal pain, bloody stools to come back to the emergency room. On admission patient was also found to have severe liver cirrhosis, seen on ultrasound and CT, with splenomegaly, hepatitis panel within normal limits, ferritin within normal limits, liver function within normal limits, INR 1.26, albumin 2.8. Patient was discharged with a follow-up with gastroenterology as outpatient for liver biopsy and work-up for cirrhosis. Review of Systems General: Reports: 10 or more systems reviewed and unremarkable except in HPI and below Const: Denies: fever(s), chills or body aches Eyes: Denies: change in vision, blurry vision or photophobia ENMT: Reports: hoarseness; Denies: throat pain, enlarged tonsils, odynophagia or nasal congestion Card: Denies: chest pain, palpitations, irregular heart rhythm, edema, swelling of feet/ankles, lightheadedness, pre-syncope, dyspnea on exertion or orthopnea Resp: Denies: dyspnea, productive cough, non-productive cough, wheezing, stridor, pain on inspiration, change in phlegm color, hemoptysis or chest congestion GI: Denies: abdominal pain, nausea, vomiting, hematemesis, coffee ground emesis, dysphagia, heartburn, diarrhea, constipation, GI cramping, change in stool character, hematochezia or melena : Denies: flank pain, difficulty voiding, dysuria, urinary frequency, urinary urgency, urinary hesitancy or hematuria Musc: Denies: neck pain, back pain, extremity pain, joint swelling, joint warmth or deformity Neuro: Denies: headache(s), numbness in extremities, weakness in extremities, sensory changes, difficulty walking, frequent falls, dizziness, vertigo, behavioral changes, Slurred speech present or seizure-like activity Psych: Denies: anxiety, depression, suicidal ideation or homicidal ideation Endo: Denies: polyuria, polydipsia, tired all the time, cold intolerance or hot flashes Rashard/Lymph: Denies: easy bruising or easy bleeding Medications/Allergies Home Medications Medication Instructions Recorded Confirmed Last Taken Type Multi For Her 1 tab-cap PO DAILY 03/19/19 08/05/19 08/05/19 History Tresiba FlexTouch U-100 10 unit SUBCUT BEDTIME 03/19/19 08/05/19 08/04/19 History acetaminophen [Tylenol] 325 mg PO PRN PRN 03/19/19 08/05/19 08/04/19 History atorvastatin [Lipitor] 40 mg PO DAILY 03/19/19 08/05/19 08/05/19 History carbidopa-levodopa [Sinemet CR] 1 tab PO TID 03/19/19 08/05/19 08/05/19 History carvedilol [Coreg] 6.25 mg PO BID 03/19/19 08/05/19 08/05/19 History entacapone 200 mg PO TID 03/19/19 08/05/19 08/05/19 History insulin aspart U-100 [Novolog See Rx Instructions .ROUTE .COMPLEX 03/19/19 08/05/19 08/05/19 History U-100 Insulin aspart] melatonin 30 mg PO BEDTIME 03/19/19 08/05/19 08/04/19 History ropinirole 1 mg PO DAILY 03/19/19 08/05/19 08/05/19 History ferrous sulfate 325 mg PO BID #60 tab 03/21/19 08/05/19 08/05/19 Rx furosemide 40 mg PO DAILY@0800 #30 tab 03/21/19 08/05/19 08/05/19 Rx pantoprazole 40 mg PO DAILY #30 tab 03/21/19 08/05/19 08/05/19 Rx mag oxide 400 mg PO DAILY 03/28/19 08/05/19 08/05/19 History trazodone 50 mg PO BEDTIME 07/29/19 08/05/19 08/04/19 History amoxicillin-pot clavulanate 1 tab PO Q8H 12 Days #36 tab 07/31/19 08/05/19 08/05/19 Rx [Augmentin] hydrocodone-acetaminophen [[place]] 1 tab PO Q12H PRN 12 Days #24 tab 07/31/19 08/05/19 08/05/19 Rx ondansetron HCl [Zofran] 4 mg PO Q12H PRN 12 Days #24 tab 07/31/19 08/05/19 Unknown Rx Augmentin 1 tab PO Q8H 08/05/19 08/05/19 08/05/19 History tramadol 50 mg PO QID PRN 08/05/19 08/05/19 Unknown History Allergies Allergy/AdvReac Type Severity Reaction Status Date / Time aspirin Allergy Unknown Verified 03/19/19 18:10 PFSH Acute PFSH: Medical History Hyperlipidemia Hypertension Surgical History History of coronary artery stent placement 2006 History of tonsillectomy and adenoidectomy Hx of appendectomy Hx of cholecystectomy Hx of hysterectomy Family History Mother CAD (coronary artery disease) Myocardial infarction Diabetes Hypertension Social History Smoking and tobacco status: never smoked Alcohol intake: never Vitals/I&O/Wt Last Vital Signs Temp 97.8 F 08/05/19 17:55 Pulse 75 08/05/19 17:55 Resp 14 08/05/19 17:55 BP 130/70 08/05/19 17:55 Pulse Ox 96 08/05/19 17:55 Weight last 48 hrs Weight 58.967 kg Physical Exam Narrative: EXAM NARRATIVE: GEN: Awake, alert and oriented, no acute distress CVS: S1S2 N RS: CTA B/L Abd: Soft, nt/nd , bs+ CISSP: no focal neuro deficits EXT: multiple diffuse petechial bleeding and bruises all over Data : 08/05/19 20:36 08/05/19 16:28 A&P Assessment and plan (1) Lower GI bleed: Status: Acute (2) Liver cirrhosis: Status: Acute (3) Moderate to severe pulmonary hypertension: Status: Chronic (4) Oxygen dependent: Status: Acute (5) Parkinsons disease: Status: Chronic (6) Hypertension: Status: Chronic (7) Diastolic heart failure: Status: Acute (8) Coronary artery disease: Status: Acute (9) Chronic kidney disease, stage III (moderate): Status: Acute (10) Type 2 diabetes mellitus: Status: Acute (11) Anemia: Status: Acute Additional A&P Information Admit to ICU given ongoing wintnessed large BM in the ER 1. Lower GI bleed Recent w/up as outlined above in HPI. Likely to be related to diverticular bleeding vs possible neoplasm, needs further w/up as outpatient Had previously refused endoscopic evaluation on last admission, however she is amenable to both UGIE and colonoscopy now. For now, given h/o cardiac disease and ongoing bleeding, will transfuse PRBC with goal to keep Hb > 8 Check H&H every 4 hrs given ongoing bleeding Avoid CT with contrast for now given NAGI with cr 2.1, recently imaged on 07/28 Surgical team called from ER. 2. Acute on chronic anemia Planned for PRBC as above 3. Moderate to severe PAH, 02 dependent, at baseline currently 4. Parkinson's disease, continue home meds 5. HTN: Hold antihypertensives for now given ongoing bleed, will monitor closely and resume prn meds if needed 6. IDDM: Short acting insulin per sliding scale DVT ppx: SCDs only Code status : full Code Attestations Medical Necessity Statement*: Ongoing GI bleeding. Anticipate > 2 midnight admission Coding Level of Care Code Acute Shipping And Receiving Supervisor for Chg Fwd Diagnoses Lower GI bleed K92.2 Liver cirrhosis K74.60 Moderate to severe pulmonary hypertension I27.20 Oxygen dependent Z99.81 Parkinsons disease G20 Hypertension I10 Diastolic heart failure I50.30 Coronary artery disease I25.10 Chronic kidney disease, stage III (moderate) N18.3 Type 2 diabetes mellitus E11.9 Anemia D64.9
[2019-08-05] MEDS: LORazepam 2 mg/mL INJ 1 mL 0.5 MG IVP (20:02)
--- NOTE | 2019-08-05 20:06 | XR_ITS ---
WS: [id number] CHEST XRAY TECHNIQUE: Portable chest. CLINICAL INFORMATION: central line placement COMPARISON: March 19, 2019 FINDINGS: Heart: Cardiomegaly. Aortic calcification. Left central venous catheter with tip in the distal left b rachiocephalic SVC junction with tip curled posteriorly. This could be advanced. Lungs: Moderate chronic emphysematous changes. No acute infiltrates. A few calcified granulomas. Bones: Right rotator cuff anchors. XR/XR chest 1V portable [id number] IMPRESSION: 1. Left IJ catheter with tip in the proximal SVC with tip curled posteriorly. This could be advanced. 2. Stable cardiomegaly. 3. No pneumothorax.
[2019-08-05] MEDS: sodium chloride 0.9% 500 ML 999 ML IV (20:15)
[2019-08-05] MEDS: piperacillin-tazobactam 3.375 GM in sodium chloride 0.9% (plus) 50 ML IV (20:15)
[2019-08-05] MEDS: ondansetron 2 mg/ML SDV 2 mL 4 MG IVP (21:06)
[2019-08-05] MEDS: morphine 4 mg/mL SDV 1 mL IVP (21:07)
[2019-08-05] MEDS: metroNIDAZOLE IV 500 MG/100 ML PREMIX 100 MG IV (21:08)
[2019-08-05 21:20] LABS: Glucose Point of Care 42 mg/dL (70-110)
[2019-08-05 21:20] LABS: Hemoglobin 6.4 g/dL (11.5-15.3)
[2019-08-05] MEDS: dextrose 50% syringe 50 mL IVP (21:24)
[2019-08-05 22:24] LABS: Glucose Point of Care 134 mg/dL (70-110)
== END 2019-08-05 22:28 ==
LOC: ER 18:08
PROVIDERS: Emergency Provider Emergency Medicine; PCP Physician Assistant
DX: K62.5 Hemorrhage of anus and rectum (principal); E78.5 Hyperlipidemia, unspecified; I10 Essential (primary) hypertension
CPT/HCPCS: 12345; 36415; 36416; 36430; 36556; 71045; 80053; 82962; 83690; 85018; 85025; 85610; 86850; 86900; 86920; 96365; 96367; 96368; 96375; 99283; 99291; C1751; J2060; J2270; J2405; J2543; J7040; P9016; S0030

== ENCOUNTER 2019-10-09 23:48 | Emergency (ER) | payer MEDICARE, MEDICAID, SELFPAY ==
--- NOTE | 2019-10-09 23:59 | XR_ITS ---
WS: [id number] PORTABLE CHEST HISTORY: weakness COMPARISON: 08/05/2019 LEFT IJ line is been removed since the prior study. Lungs are hyperinflated with diffuse haziness which is minimal greatest over the RIGHT lung. No dense consolidations. No pleural effusion or pneumothorax. Cardiac size: Moderately enlarged cardiac silhouette. Mediastinum/Aorta: Mild atherosclerosis aorta. Prior rotator cuff repair on the RIGHT. High riding humeral heads. XR/XR chest 1V portable [id number] IMPRESSION: 1. Chronic emphysema with moderate cardiomegaly. 2. Diffuse haziness over both lungs is probably related to interstitial edema and fluid overload. Pneumonitis may appear similar.
--- NOTE | 2019-10-10 | ECG_ITS ---
[facility] Test Date: 2019-10-10 Pat Name: Chelsi Berger Department: Room: Gender: Female Ciaio Lumite Injector: : 1940 Requested By: Josiah Hernandez Order Number: [id number] MD: Clovis Doyle M.D. Measurements Intervals [place] Rate: 65 P: -9 SC: 125 QRS: 52 QRSD: 110 T: -2 QT: 452 QTc: 473 Interpretive Statements SINUS RHYTHM WITH OCCASIONAL VENTRICULAR PREMATURE COMPLEXES SEPTAL MYOCARDIAL INFARCTION , PROBABLY OLD [40+ ms Q WAVE IN V1/V2] Compared to ECG 03/19/2019 17:59:06 Myocardial infarct finding now present Prolonged QT interval no longer present Electronically Signed On 10-10-2019 17:06:36 CDT by Clovis Doyle M.D. [email or web address]
[2019-10-10 00:19] VITALS: BMI 25.5
--- NOTE | 2019-10-10 00:43 | W.ED.WEAKNES ---
HPI - Weakness General: Chief complaint: Weakness Stated complaint: WEAKNESS Time Seen by Provider: 10/09/19 23:59 History of Present Illness: HPI Narrative: Patient arrived via ambulance said that she is can get weak in her feet and fell and scraped her knees and her hands. Denies any LOC denies any nausea and vomiting did have a UTI here couple weeks ago. Denies chest pain shortness of breath or other related problems Complaint: generalized weakness Onset (ago): minute(s) Duration: improved Associated symptoms: Denies chest pain, chills, easy bruising, fever(s), headache(s), nausea or vomiting Review of Systems Narrative: Readlyn weak in her feet and she fell denies any pain to any bones is able to stand Const: Denies: fever(s), chills or body aches Eyes: Denies: change in vision or blurry vision ENMT: Denies: throat pain or nasal congestion Card: Denies: chest pain or dyspnea on exertion Resp: Denies: dyspnea, productive cough or non-productive cough GI: Denies: abdominal pain, nausea or vomiting Musc: Denies: extremity pain Skin/Breast: Reports: other (Skin tears to knee and hands forearm); Denies: rash Neuro: Denies: headache(s) Psych: Denies: anxiety or depression Rashard/Lymph: Denies: easy bruising PFSH ED PFSH: Medical History (Updated 08/05/19 @ 21:49 by Reva Ng MD) Hyperlipidemia Hypertension Surgical History History of coronary artery stent placement 2007 History of tonsillectomy and adenoidectomy Hx of appendectomy Hx of cholecystectomy Hx of hysterectomy Family History Mother CAD (coronary artery disease) Myocardial infarction Diabetes Hypertension Social History Smoking and tobacco status: never smoked Alcohol intake: never Physical Exam Const: COMMON NORMALS: no acute distress, average body habitus and patient oriented x3 HENMT: COMMON NORMALS: normocephalic HEAD & SCALP: normal to inspection and normocephalic FACE & SINUS: normal facial exam Eye: COMMON NORMALS: conjunctivae normal GENERAL EYE: appearance normal, both eyes and all related structures CONJUNCTIVA: Yes conjunctivae normal Neck/C-Spine: COMMON NORMALS: no JVD Chest: COMMONS NORMALS: normal inspection of the chest Resp: COMMON NORMALS: normal respiratory effort and clear to auscultation bilaterally AUSCULTATION: clear to auscultation bilaterally Cardio: COMMON NORMALS: no JVD, regular rate and regular rhythm RATE: regular rate RHYTHM: regular rhythm GI: COMMON NORMALS: Normal to inspection, nondistended, normoactive bowel sounds present Extremity: COMMON NORMALS: normal to inspection and full ROM Neuro: COMMON NORMALS: patient oriented x3 Skin: NARRATIVE SKIN EXAM: Has skin tears to her right hand left godfrey right forearm Discharge Plan Discharge Prescriptions: No Action mag oxide 400 mg PO DAILY RF: 0 atorvastatin [Lipitor] 40 mg Tablet 40 mg PO DAILY RF: 0 acetaminophen [Tylenol] 325 mg Tablet 325 mg PO PRN PRN (Reason: Pain) RF: 0 carvedilol [Coreg] 6.25 mg Tablet 6.25 mg PO BID RF: 0 ropinirole 1 mg Tablet 1 mg PO DAILY RF: 0 carbidopa-levodopa [Sinemet CR] 50-200 mg Tablet Extended Release 1 tab PO TID RF: 0 entacapone 200 mg Tablet 200 mg PO TID RF: 0 insulin aspart U-100 [Novolog U-100 Insulin aspart] 100 unit/mL Solution See Rx Instructions .ROUTE .COMPLEX RF: 0 Multi For Her 18 mg iron-600 mcg-40 mcg Capsule 1 tab-cap PO DAILY RF: 0 melatonin 10 mg Tablet 30 mg PO BEDTIME RF: 0 Tresiba FlexTouch U-100 100 unit/mL (3 mL) Insulin Pen 10 unit SUBCUT BEDTIME RF: 0 ferrous sulfate 325 mg (65 mg iron) tablet,delayed release (DR/EC) 325 mg PO BID Qty: 60 RF: 0 tramadol 50 mg tablet 50 mg PO QID PRN (Reason: Pain) RF: 0 Augmentin 1 tab PO Q8H RF: 0 trazodone 50 mg Tablet 50 mg PO BEDTIME RF: 0 Coding Level of Care Code 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
[2019-10-10 00:48] LABS: Basophils # 0.1 10^3/uL (0.0-0.1); Basophils % 0.6 %; Eosinophils # 0.4 10^3/uL (0.0-0.8); Eosinophils % 4.1 %; Hematocrit 35.3 % (37.0-47.0); Hemoglobin 11.1 g/dL (11.5-15.3); Lymphocytes # 1.3 10^3/uL (0.8-4.8); Lymphocytes % 13.6 %; Mean Corpuscular HGB Conc 31.4 g/dL (30.0-36.0); Mean Corpuscular Hemoglobin 26.9 pg (28.0-34.0); Mean Corpuscular Volume 85.5 fL (81-99); Mean Platelet Volume 10.5 fL (7.4-10.4); Monocytes # 0.7 10^3/uL (0.2-0.9); Monocytes % 6.9 %; Neutrophils # 7.01 10^3/uL (1.8-7.7); Neutrophils % 73.5 %; Nucleated Red Blood Cells % 0 %; Platelet Count 357 10^3/cmm (130-400); Red Blood Count 4.13 10^6/uL (4.1-5.3); Red Cell Distribution Width 15.9 % (12.1-15.1); White Blood Count 9.5 10^3/uL (4.0-10.0)
[2019-10-10 01:06] LABS: Alanine Aminotransferase < 5 U/L (0-33); Albumin Level 3.1 g/dL (3.5-5.2); Alkaline Phosphatase 67 IU/L (35-105); Anion Gap 13.5 (5-19); Aspartate Amino Transferase 21 U/L (0-32); Blood Urea Nitrogen 29 mg/dL (8-23); Calcium 8.7 mg/dL (8.5-10.5); Carbon Dioxide 24 mmol/L (22-29); Chloride 105 mmol/L (98-107); Globulin 3.3 g/dL (1.3-4.6); Glucose 144 mg/dL (65-115); Lactic Sepsis W/Reflex 1.4 mmol/L (0.5-2.2); Osmolality Calculated 288 mOsm/kg (285-295); Potassium 3.5 mmol/L (3.5-5.1); Sodium 139 mmol/L (136-145); Total Bilirubin 0.5 mg/dL (0.15-1.2); Total Protein 6.4 g/dL (6.6-8.7)
[2019-10-10 01:08] LABS: Troponin(5th) Baseline 68 ng/L (0-10)
[2019-10-10 01:09] VITALS: BP 161/79; PULSE 67; RESP 14; O2SAT 92
[2019-10-10 02:10] LABS: Urine Appearance SL Hazy (CLEAR); Urine Color Yellow (Yellow)
[2019-10-10 02:11] LABS: Add Urine Microscopic? YES; Bacteria Urine 1+; Bilirubin Urine Neg (NEGATIVE); Blood Urine 2+ (Negative); Glucose Urine UA Norm (Normal); Hyaline Casts Urine 0-4; Ketones Urine Negative (Negative); Leukocyte Esterase Urine Negative (Negative); Nitrate Urine Negative (Negative); Protein Urine 2+ (Negative); RBC Urine 0-4 /hpf (0-2); Specific Gravity, Urine 1.015 (1.005-1.030); Urobilinogen Urine Norm (Negative); WBC Urine 0-4 /hpf (0-5); pH Urine 5 (5-7)
[2019-10-10 02:12] LABS: Troponin 5 2HR 67.58 ng/L (0-10)
[2019-10-10 02:19] LABS: Troponin 5 2HR Delta -0.42 ABS# (0-10)
[2019-10-10 03:25] VITALS: BP 143/71; PULSE 93; RESP 22; O2SAT 92
== END 2019-10-10 02:26 | disposition home or self-care (01) ==
PROVIDERS: Emergency Provider Nurse Practitioner Family; PCP Physician Assistant
DX: R53.1 Weakness (principal); Z79.4 Long term (current) use of insulin; E78.5 Hyperlipidemia, unspecified; I10 Essential (primary) hypertension; I70.0 Atherosclerosis of aorta
CPT/HCPCS: 12345; 36415; 71045; 80053; 81001; 81003; 83605; 84484; 85025; 85610; 86850; 86900; 93005; 99283

== ENCOUNTER 2019-11-12 14:47 | Outpatient (CLI) | payer MEDICARE, MEDICAID, SELFPAY ==
--- NOTE | 2019-11-12 15:00 | USCV_ITS ---
Chelsi Berger Age: 79 Gender: F : 1940 Exam Date: 11/12/2019 14:49 Ordering Phys: Marcelina Yan Technologist: Nay Saleh Exam Location: [facility] [place] Indication: HEART FAILURE BP: / HR: 61 Rhythm: Sinus Technical Quality: Adequate MEASUREMENTS (Male / Female) Normal Values 2D ECHO LV Diastolic Diameter PLAX 5.3 cm 4.2 - 5.9 / 3.9 - 5.3 cm LV Systolic Diameter PLAX 4.8 cm LV Chamber Size 3.8 cm IVS Diastolic Thickness 1.3 cm 0.6 - 1.0 / 0.6 - 0.9 cm IVS Systolic Thickness 1.4 cm LVPW Diastolic Thickness 1.3 cm 0.6 - 1.0 / 0.6 - 0.9 cm LVPW Systolic Thickness 1.6 cm RV Chamber Size 3.3 cm LVOT Diameter 2.0 cm LV Ejection Fraction 2D Teich 19.4 % LA Diameter 4.9 cm LA Width 4.0 cm LA Height 6.7 cm RA Width 4.5 cm RA Height 5.2 cm Aorta at Sinotubular Diameter 2.4 cm M-MODE LV Diastolic Diameter MM 5.4 cm 4.2 - 5.9 / 3.9 - 5.3 cm LV Systolic Diameter MM 4.3 cm LV Ejection Fraction MM Teich 42.3 % IVS Diastolic Thickness MM 1.4 cm 0.6 - 1.0 / 0.6 - 0.9 cm IVS Systolic Thickness MM 1.3 cm LVPW Diastolic Thickness MM 1.1 cm 0.6 - 1.0 / 0.6 - 0.9 cm LVPW Systolic Thickness MM 1.5 cm RV Diastolic Diameter MM 1.8 cm Aortic Annulus Diameter 3.0 cm LA Ao Ratio MM 1.6 MV E Point Septal Separation 1.6 cm DOPPLER AV Peak Velocity 124.0 cm/s LVOT Peak Velocity 47.0 cm/s AV Area Cont Eq vti 1.5 cm squared AV Area Cont Eq pk 1.2 cm squared MV Area PHT 5.4 cm squared MV E' Velocity 7.0 cm/s Mitral E to MV E' Ratio 18.7 Mitral E to LV E' Lateral Ratio 16.5 Mitral E to LV E' Septal Ratio 21.9 TR Peak Velocity 320.6 cm/s TR Peak Gradient 41.1 mmHg TR Mean Velocity 264.1 cm/s TR Mean Gradient 29.2 mmHg TR Velocity Time Integral 119.9 cm TV Peak E Velocity 66.0 cm/s Right Atrial Pressure 3.0 mmHg Pulmonary Artery Systolic Pressu 44.1 mmHg PV Peak Velocity 55.0 cm/s RV Acceleration Time 0.1 s RV Ejection Time 0.3 s RV AcT/ET 0.4 FINDINGS Left Ventricle Normal left ventricular size and wall thickness. LV systolic function is moderate to severely reduced with EF of 30-35%. Moderate global hypokinesis. Diastolic filling is consistent with grade 3 diastolic dysfunction. Right Ventricle The right ventricle is normal in size and function. Right Atrium The right atrium is normal in size. Left Atrium The left atrium is normal in size. Mitral Valve Structurally normal mitral valve without significant stenosis or prolapse. There is atleast moderate eccenteric mitral regurgitation noted. Aortic Valve Structurally normal aortic valve without significant sclerosis or stenosis. There is no aortic regurgitation. Tricuspid Valve Structurally normal tricuspid valve without significant stenosis. Trace TR is present. Insufficient TR jet to measure RVSP. Pulmonic Valve Structurally normal pulmonic valve without significant stenosis. There is no pulmonic regurgitation. Pericardium Trace pericardial effusion is noted. Aorta Normal ascending aorta dimension. CONCLUSIONS LV systolic function is moderate severely reduced with EF of 30 to 35%. Moderate global hypokinesis. Diastolic filling is consistent with grade 3 diastolic dysfunction. Moderate mitral regurgitation is noted. Ted Roe MD (Electronically Signed) Final Date: 13 November 2019 08:50 S
== END 2019-11-12 14:48 | disposition home or self-care (01) ==
LOC: US 14:47
PROVIDERS: PCP Physician Assistant; Visit Provider Physician Assistant
DX: I50.9 Heart failure, unspecified (principal); I34.0 Nonrheumatic mitral (valve) insufficiency
CPT/HCPCS: 93306

== ENCOUNTER 2020-01-23 03:57 | Inpatient (IN) | payer MEDICARE, MEDICAID, SELFPAY ==
[2020-01-23] VITALS (51 sets, daily range): BP systolic 86–116; BP diastolic 42–63; PULSE 53–74; RESP 9–24; TEMP 36.4–36.7; O2SAT 95–100; BMI 18.3
--- NOTE | 2020-01-23 03:58 | XR_ITS ---
WS: [id number] XR chest 1V portable [id number] REASON FOR EXAM: Weakness FINDINGS: Mild tortuosity of the thoracic aorta with calcification in the aortic arch. The heart is markedly en larged. Calcified granulomatous changes are seen in both hemithoraces. No active pulmonary parenchymal or ple ural disease is identified. Degenerative arthropathy is seen in both glenohumeral joints. XR/XR chest 1V portable [id number] IMPRESSION: No acute chest abnormality.
--- NOTE | 2020-01-23 03:58 | CTR_ITS ---
PROCEDURE INFORMATION: Exam: CT Abdomen And Pelvis Without Contrast Exam date and time: 01/23/2020 5:29 AM Age: 79 years old Clinical indication: Pain and condition or disease; Other: Gi bleed; Abdominal pain; Generalized; Prior surgery; Surgery type: Appy, , gb, hysterectomy TECHNIQUE: Imaging protocol: Computed tomography of the abdomen and pelvis without contrast. Radiation optimization: All CT scans at this facility use at least one of these dose optimization techniques: automated exposure control; mA and/or kV adjustment per patient size (includes targeted exams where dose is matched to clinical indication); or iterative reconstruction. COMPARISON: CT abdomen pelvis w con* [id number] 07/29/2019 11:01 AM RADIATION DOSE METRICS: Total DLP (mGy-cm): 318.41 FINDINGS: Lungs: Lung bases are clear. Liver: The liver has a nodular surface and there is relative hypertrophy of the left and caudate lobe consistent with cirrhosis. Gallbladder and bile ducts: The gallbladder is absent. There is ectasia of the common bile duct and central intrahepatic ducts. Pancreas: There is mild atrophy of the pancreas. Spleen: The spleen is moderately enlarged. Adrenal glands: The adrenal glands are hypertrophic bilaterally. Kidneys and ureters: There are small hemorrhagic cysts in the left kidney measuring less than 1 cm. There is mild left renal atrophy. Moderate right renal atrophy. No hydronephrosis or stones. Stomach and bowel: The stomach is unremarkable. The small bowel is nondilated. There is pancolonic diverticulosis. There is no sign of diverticulitis. Appendix: The appendix is not visible. Intraperitoneal space: Trace perihepatic ascites. No intraperitoneal free air. Vasculature: There is severe aortic atherosclerotic disease. Lymph nodes: There is no lymphadenopathy in the retroperitoneum, mesentery, pelvis or inguinal regions. Urinary bladder: The Graham catheter is appropriately positioned with the bulb and tip within the bladder lumen. The urinary bladder is decompressed, preventing meaningful evaluation of wall thickness. Reproductive: The uterus is absent. There is no adnexal mass or large cyst. Bones/joints: Unremarkable. No acute fracture. Soft tissues: The abdominal wall is intact. CT/CT abdomen pelvis wo con [id number] IMPRESSION: 1. No acute findings. 2. Cirrhosis and splenomegaly with trace ascites. 3. Incidental findings above. COMMENTS: Consistent with the [employer]'s Incidental Findings Committee white paper (J Am Gloria Radiol 2018): Any incidental renal lesion less than 1 cm or classified as too small to characterize, or any incidental cystic renal lesion characterized as simple-appearing, is likely benign. No follow-up imaging is recommended for these lesions per consensus recommendations based on imaging criteria. Radiation Dose CTDIVOL = (mGy): DLP = 318.41 (mGy-cm)
--- NOTE | 2020-01-23 03:59 | ECG_ITS ---
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: : 1940 Requested By: Nichelle Palencia Order Number: [id number] Kt MD: JACKIE SAGASTUME Measurements Intervals [place] Rate: 55 P: -1 DE: 186 QRS: 58 QRSD: 110 T: 45 QT: 468 QTc: 450 Interpretive Statements SINUS BRADYCARDIA INTERPRETATION BASED ON A DEFAULT AGE OF 40 YEARS Compared to ECG 10/10/2019 01:53:24 Sinus rhythm no longer present Ventricular premature complex(es) no longer present Myocardial infarct finding no longer present Electronically Signed On 01-24-2020 19:30:48 JOINERY PATTERNMAKER by JACKIE SAGASTUME [id number]
--- NOTE | 2020-01-23 04:01 | W.ED.ABDPA2 ---
HPI - Abdominal Pain General: Chief Complaint: GI Bleed Stated Complaint: gi bleed Time Seen by Provider: 01/23/20 03:58 Source: patient and EMS Mode of arrival: EMS Limitations: no limitations History of Present Illness: HPI narrative: Karmen is an 79-year-old female brought in by EMS with report of rectal bleeding. The patient woke up at 3 AM and had a large bowel movement that consisted of bright red blood. She had 1 more bowel movement shortly after this and because of this family called EMS. Upon EMS arrival the patient was sitting in a wheelchair with a large amount of bright red blood on the floor around her it in the chair. In route the the patient has been mildly hypotensive with a systolic blood pressure in the 90s but a normal heart rate. Patient has a history of GI bleeds but she is uncertain what causes them. She does have some mild intermittent abdominal pain but denies any nausea or vomiting or melena. She denies any fevers or chills. She has any chest pain or shortness of breath. EMS established a 20-gauge IV in the patient's left antecubital fossa but no other interventions in route to the hospital. Is not believed the patient has any blood thinners or antiplatelet agents. Associated Symptoms: Reports GI cramping and hematochezia; Denies chills, coffee ground emesis, constipation, diarrhea, dysuria, fever(s), heartburn, hematuria, hematemesis, melena, nausea, syncope and vomiting Review of Systems Const: Denies: fever(s), chills, body aches, fatigue, malaise or diaphoresis Eyes: Denies: change in vision, blurry vision, photophobia, eye discomfort, eye discharge, eye redness or yellow eyes ENMT: Denies: throat pain, odynophagia, hoarseness, swelling of lips/tongue, ear or mastoid pain, ear discharge, change in hearing or nasal discharge Card: Denies: chest pain, palpitations, irregular heart rhythm, edema, lightheadedness, syncope, pre-syncope, dyspnea on exertion or orthopnea Resp: Denies: dyspnea, productive cough, non-productive cough, wheezing, hemoptysis or chest congestion GI: Reports: abdominal pain, GI cramping and hematochezia; Denies: nausea, vomiting, hematemesis, coffee ground emesis, heartburn, diarrhea, constipation or melena : Denies: flank pain, dysuria, urinary frequency, urinary urgency or hematuria Musc: Denies: neck pain, back pain, extremity pain, extremity swelling, joint pain, joint swelling, joint redness, joint warmth or joint stiffness Skin/Breast: Denies: rash, pruritus, erythema, skin pain or skin tenderness Neuro: Denies: headache(s), numbness in extremities, weakness in extremities, sensory changes, lack of coordination, difficulty walking, dizziness, vertigo, confusion, Slurred speech present or seizure-like activity Rashard/Lymph: Denies: easy bruising, easy bleeding, petechiae, purpura or enlarged lymph nodes All/Imm: Denies: urticaria, throat swelling, tongue swelling, facial swelling or acute wheezing PFSH ED PFSH: Medical History (Updated 01/23/20 @ 05:50 by Nichelle Butts) Anemia Chronic kidney disease, stage III (moderate) Coronary artery disease Diastolic heart failure Hyperlipidemia Hypertension Liver cirrhosis Lower GI bleed Moderate to severe pulmonary hypertension Oxygen dependent 2L per NC Parkinsons disease Type 2 diabetes mellitus Surgical History History of coronary artery stent placement 2007 History of tonsillectomy and adenoidectomy Hx of appendectomy Hx of cholecystectomy Hx of hysterectomy Family History Mother CAD (coronary artery disease) Myocardial infarction Diabetes Hypertension Social History Smoking and tobacco status: never smoked Alcohol intake: never Physical Exam Const: COMMON NORMALS: no acute distress, patient oriented x3, no limitations and alert GENERAL APPEARANCE: cooperative HENMT: COMMON NORMALS: normocephalic, atraumatic, external ears normal, EAC's normal and Normal external nose present HEAD & SCALP: normal to inspection, normocephalic and atraumatic FACE & SINUS: normal facial exam and face symmetric NOSE: Normal external nose present and Normal nares present EXTERNAL EAR: Yes external ears normal EXTERNAL AUDITORY CANAL: EAC's normal MOUTH: Normal oral and palatal mucosa present, lip normal and tongue normal Eye: COMMON NORMALS: Equal, round and reactive pupils present and conjunctivae normal GENERAL EYE: appearance normal, both eyes and all related structures ALIGNMENT: Yes alignment normal PERIORBITAL: periorbital findings normal EYELID: eyelids normal CONJUNCTIVA: Yes conjunctivae normal SCLERA: sclerae normal PUPIL: Yes Equal, round and reactive pupils present Neck/C-Spine: COMMON NORMALS: full ROM, no lymphadenopathy, supple, no meningeal signs and no JVD GENERAL: Yes normal visual inspection and Yes trachea midline Chest: COMMONS NORMALS: normal inspection of the chest and normal palpation of entire chest wall Resp: COMMON NORMALS: normal respiratory effort, No retractions, No use of accessory muscles and clear to auscultation bilaterally EFFORT & INSPECTION: Yes able to speak in complete sentences and Yes symmetric chest movement AUSCULTATION: clear to auscultation bilaterally, no crackles, no rales, no rhonchi and no wheezes Cardio: COMMON NORMALS: no JVD, regular rate, regular rhythm, S1 normal heart sound present and S2 normal heart sound present RATE: regular rate RHYTHM: regular rhythm HEART SOUNDS: S1 normal heart sound present, S2 normal heart sound present, no click, no gallops, no murmurs and no rubs GI: COMMON NORMALS: Soft to palpation and No hepatosplenomegaly present PALPATION: Yes Soft to palpation, Yes Tenderness to palpation present (GI) (Moderate diffusely), No Guarding due to palpation present (GI), No Rigid due to palpation, Yes No hepatosplenomegaly present, No Hernia present, No Palpable mass present and No Pulsatile mass present : COMMON NORMALS: Yes no CVA tenderness BLADDER/KIDNEY EXAM: Yes no CVA tenderness EXTERNAL FEMALE EXAM: No Hernia present Back/Pelvis: COMMON NORMALS: no CVA tenderness, thoracic and lumbar spine normal to inspection, no thoracic nor lumbar tenderness and thoraco-lumbar ROM normal Extremity: COMMON NORMALS: normal to inspection, full ROM, capillary refill normal, no joint enlargement, no clubbing, cyanosis or edema and no calf tenderness Neuro: COMMON NORMALS: patient oriented x3, CN's II-XII intact bilaterally, moves all extremities, no focal motor deficits and no sensory deficits noted SENSORIUM/ORIENTATION: Yes alert MENINGEAL SIGNS: Yes no meningeal signs SPEECH: speech normal Psych: COMMON NORMALS: mental status grossly normal, Normal thought process present, cooperative, normal affect, speech normal and activity/motor behavior normal SPEECH: Yes normal speech THOUGHT PROCESS: Normal thought process present Skin: COMMON NORMALS: no rashes or lesions noted, turgor normal, no jaundice, no petechiae and no mottling GENERAL SKIN EXAM: no rashes or lesions noted and turgor normal Procedures EJ/Peripheral Line Arm R: Time Out Performed: Yes Skin Cleansed in Sterile Fashion: Yes Size (gauge): 20 IV Secured and Dressing Applied: Yes Patient Tolerated Procedure: well and no complications Additional Comments: Ultrasound utilized throughout procedure. Course Vital Signs: Vital signs: Vital Signs Temperature 97.6 F 01/23/20 03:58 Pulse Rate 62 01/23/20 05:42 Respiratory Rate 15 01/23/20 05:42 Blood Pressure 116/55 01/23/20 05:42 Pulse Oximetry 99 01/23/20 05:42 MDM - Abdominal Pain MDM Narrative: Medical decision making narrative: Patient is stable after 1 L of normal saline. Her blood pressure has come up and she no longer has any hypotension. She is asymptomatic at this time. CT scan is still pending. I did review the case with Dr. Zapata and Chidi they will consult and admit respectively. Differential Diagnosis: Differential diagnosis abdominal pain: Likely abdominal pain, constipation, diverticulitis, gastroenteritis, pancreatitis and small bowel obstruction Medical Records: Attestation: I reviewed the patient's medical records. Lab Data: Attestation: I reviewed the patient's lab results. Labs: Lab Results 01/23/20 01/23/20 01/23/20 Range/Units 03:59 04:20 04:20 WBC 12.9 H (4.0-10.0) 10^3/ uL RBC 3.95 L (4.1-5.3) 10^6/u L Hgb 10.3 L (11.5-15.3) g/dL Hct 33.1 L (37.0-47.0) % MCV 83.8 (81-99) fL MCH 26.1 L (28.0-34.0) pg MCHC 31.1 (30.0-36.0) g/dL RDW 20.2 H (12.1-15.1) % Plt Count 375 (130-400) 10^3/c mm MPV 10.2 (7.4-10.4) fL Neut % (Auto) 60.8 % Lymph % (Auto) 31.1 % [place] % (Auto) 5.8 % Eos % (Auto) 1.5 % Baso % (Auto) 0.5 % Neut # (Auto) 7.81 H (1.8-7.7) 10^3/u L Lymph # (Auto) 4.0 (0.8-4.8) 10^3/u L [place] # (Auto) 0.8 (0.2-0.9) 10^3/u L Eos # (Auto) 0.2 (0.0-0.8) 10^3/u L Baso # (Auto) 0.1 (0.0-0.1) 10^3/u L Nucleated RBC % (a uto) 0 % Nucleated RBCs # 0.0 /100WBC PT (12.1-14.9) SECO NDS INR (0.8-1.2) APTT (23.9-36.7) SECO NDS Sodium 131 L (136-145) mmol/L Potassium 5.9 H (3.5-5.1) mmol/L Chloride 102 (98-107) mmol/L Carbon Dioxide 18 L (22-29) mmol/L Anion Gap 16.9 (5-19) BUN 103 H* D (8-23) mg/dL Creatinine 3.1 H (0.5-0.9) mg/dL GFR Calculation Not Reportable Glucose 149 H (65-115) mg/dL Calculated Osmolal ity 307 H (285-295) mOsm/k g Lactic Acid (0.5-2.2) mmol/L Calcium 9.3 (8.5-10.5) mg/dL Magnesium 2.7 H (1.7-2.3) mg/dL Total Bilirubin 0.3 (0.15-1.2) mg/dL AST 21 (0-32) U/L ALT < 5 (0-33) U/L Alkaline Phosphata se 132 H (35-105) IU/L Troponin T Baselin e (0-10) ng/L Total Protein 6.4 L (6.6-8.7) g/dL Albumin 3.0 L (3.5-5.2) g/dL Globulin 3.4 (1.3-4.6) g/dL Urine Color (Yellow) Urine Appearance (CLEAR) Urine pH (5-7) Ur Specific Gravit y (1.005-1.030) Urine Protein (Negative) Urine Glucose (UA) (Normal) Urine Ketones (Negative) Urine Blood (Negative) Urine Nitrate (Negative) Urine Bilirubin (Negative) Urine Urobilinogen (Negative) mg/dL Ur Leukocyte Vee ase (Negative) Urine RBC (0-2) /hpf Urine WBC (0-5) /hpf Ur Squamous Epith Cells (0-5) /hpf Amorphous Sediment /hpf Urine Bacteria (NONE) /hpf Urine Mucus /hpf Urine Yeast /hpf Blood Type A Positive Rho(D) Type Positive Antibody Screen Negative Crossmatch See Detail 01/23/20 01/23/20 01/23/20 Range/Units 04:20 04:20 04:20 WBC (4.0-10.0) 10^3/ uL RBC (4.1-5.3) 10^6/u L Hgb (11.5-15.3) g/dL Hct (37.0-47.0) % MCV (81-99) fL MCH (28.0-34.0) pg MCHC (30.0-36.0) g/dL RDW (12.1-15.1) % Plt Count (130-400) 10^3/c mm MPV (7.4-10.4) fL Neut % (Auto) % Lymph % (Auto) % [place] % (Auto) % Eos % (Auto) % Baso % (Auto) % Neut # (Auto) (1.8-7.7) 10^3/u L Lymph # (Auto) (0.8-4.8) 10^3/u L [place] # (Auto) (0.2-0.9) 10^3/u L Eos # (Auto) (0.0-0.8) 10^3/u L Baso # (Auto) (0.0-0.1) 10^3/u L Nucleated RBC % (a uto) % Nucleated RBCs # /100WBC PT 15.50 H (12.1-14.9) SECO NDS INR 1.19 (0.8-1.2) APTT 36.0 (23.9-36.7) SECO NDS Sodium (136-145) mmol/L Potassium (3.5-5.1) mmol/L Chloride (98-107) mmol/L Carbon Dioxide (22-29) mmol/L Anion Gap (5-19) BUN (8-23) mg/dL Creatinine (0.5-0.9) mg/dL GFR Calculation Glucose (65-115) mg/dL Calculated Osmolal ity (285-295) mOsm/k g Lactic Acid 0.9 (0.5-2.2) mmol/L Calcium (8.5-10.5) mg/dL Magnesium (1.7-2.3) mg/dL Total Bilirubin (0.15-1.2) mg/dL AST (0-32) U/L ALT (0-33) U/L Alkaline Phosphata se (35-105) IU/L Troponin T Baselin e 113 H* (0-10) ng/L Total Protein (6.6-8.7) g/dL Albumin (3.5-5.2) g/dL Globulin (1.3-4.6) g/dL Urine Color (Yellow) Urine Appearance (CLEAR) Urine pH (5-7) Ur Specific Gravit y (1.005-1.030) Urine Protein (Negative) Urine Glucose (UA) (Normal) Urine Ketones (Negative) Urine Blood (Negative) Urine Nitrate (Negative) Urine Bilirubin (Negative) Urine Urobilinogen (Negative) mg/dL Ur Leukocyte Vee ase (Negative) Urine RBC (0-2) /hpf Urine WBC (0-5) /hpf Ur Squamous Epith Cells (0-5) /hpf Amorphous Sediment /hpf Urine Bacteria (NONE) /hpf Urine Mucus /hpf Urine Yeast /hpf Blood Type Rho(D) Type Antibody Screen Crossmatch 01/23/20 Range/Units 05:11 WBC (4.0-10.0) 10^3/ uL RBC (4.1-5.3) 10^6/u L Hgb (11.5-15.3) g/dL Hct (37.0-47.0) % MCV (81-99) fL MCH (28.0-34.0) pg MCHC (30.0-36.0) g/dL RDW (12.1-15.1) % Plt Count (130-400) 10^3/c mm MPV (7.4-10.4) fL Neut % (Auto) % Lymph % (Auto) % [place] % (Auto) % Eos % (Auto) % Baso % (Auto) % Neut # (Auto) (1.8-7.7) 10^3/u L Lymph # (Auto) (0.8-4.8) 10^3/u L [place] # (Auto) (0.2-0.9) 10^3/u L Eos # (Auto) (0.0-0.8) 10^3/u L Baso # (Auto) (0.0-0.1) 10^3/u L Nucleated RBC % (a uto) % Nucleated RBCs # /100WBC PT (12.1-14.9) SECO NDS INR (0.8-1.2) APTT (23.9-36.7) SECO NDS Sodium (136-145) mmol/L Potassium (3.5-5.1) mmol/L Chloride (98-107) mmol/L Carbon Dioxide (22-29) mmol/L Anion Gap (5-19) BUN (8-23) mg/dL Creatinine (0.5-0.9) mg/dL GFR Calculation Glucose (65-115) mg/dL Calculated Osmolal ity (285-295) mOsm/k g Lactic Acid (0.5-2.2) mmol/L Calcium (8.5-10.5) mg/dL Magnesium (1.7-2.3) mg/dL Total Bilirubin (0.15-1.2) mg/dL AST (0-32) U/L ALT (0-33) U/L Alkaline Phosphata se (35-105) IU/L Troponin T Baselin e (0-10) ng/L Total Protein (6.6-8.7) g/dL Albumin (3.5-5.2) g/dL Globulin (1.3-4.6) g/dL Urine Color Yellow (Yellow) Urine Appearance Cloudy (CLEAR) Urine pH 5 (5-7) Ur Specific Gravit y 1.015 (1.005-1.030) Urine Protein 1+ H (Negative) Urine Glucose (UA) Norm (Normal) Urine Ketones Negative (Negative) Urine Blood 2+ H (Negative) Urine Nitrate Negative (Negative) Urine Bilirubin 1+ H (Negative) Urine Urobilinogen Norm (Negative) mg/dL Ur Leukocyte Vee ase Negative (Negative) Urine RBC 0-4 H (0-2) /hpf Urine WBC 0-4 H (0-5) /hpf Ur Squamous Epith Cells 0-4 H (0-5) /hpf Amorphous Sediment 1+ /hpf Urine Bacteria 1+ H (NONE) /hpf Urine Mucus Trace /hpf Urine Yeast 1+ H /hpf Blood Type Rho(D) Type Antibody Screen Crossmatch Imaging Data ^: CXR: Attestation: I personally reviewed and interpreted this imaging study as follows: My impression: No acute cardiopulmonary findings. CT Abd/Pel: Radiologist's impression: [address] [address] [address] Scan Report Signed Patient: Chelsi Berger Unit #: [id number] : 1940 Age/Sex: 79 / F ADM Date: 01/23/20 Loc: ER Room/Bed: Attending Dr: Ordering Provider/Ordering MD: Nichelle Butts DO Date of Service: 01/23/20 Procedure(s): CT abdomen pelvis wo con [id number] Accession Number(s): [id number] Report Number: [id number] PROCEDURE INFORMATION: Exam: CT Abdomen And Pelvis Without Contrast Exam date and time: 01/23/2020 5:29 AM Age: 79 years old Clinical indication: Pain and condition or disease; Other: Gi bleed; Abdominal pain; Generalized; Prior surgery; Surgery type: Appy, , gb, hysterectomy TECHNIQUE: Imaging protocol: Computed tomography of the abdomen and pelvis without contrast. Radiation optimization: All CT scans at this facility use at least one of these dose optimization techniques: automated exposure control; mA and/or kV adjustment per patient size (includes targeted exams where dose is matched to clinical indication); or iterative reconstruction. COMPARISON: CT abdomen pelvis w con* [id number] 07/29/2019 11:01 AM RADIATION DOSE METRICS: Total DLP (mGy-cm): 318.41 FINDINGS: Lungs: Lung bases are clear. Liver: The liver has a nodular surface and there is relative hypertrophy of the left and caudate lobe consistent with cirrhosis. Gallbladder and bile ducts: The gallbladder is absent. There is ectasia of the common bile duct and central intrahepatic ducts. Pancreas: There is mild atrophy of the pancreas. Spleen: The spleen is moderately enlarged. Adrenal glands: The adrenal glands are hypertrophic bilaterally. Kidneys and ureters: There are small hemorrhagic cysts in the left kidney measuring less than 1 cm. There is mild left renal atrophy. Moderate right renal atrophy. No hydronephrosis or stones. Stomach and bowel: The stomach is unremarkable. The small bowel is nondilated. There is pancolonic diverticulosis. There is no sign of diverticulitis. Appendix: The appendix is not visible. Intraperitoneal space: Trace perihepatic ascites. No intraperitoneal free air. Vasculature: There is severe aortic atherosclerotic disease. Lymph nodes: There is no lymphadenopathy in the retroperitoneum, mesentery, pelvis or inguinal regions. Urinary bladder: The Graham catheter is appropriately positioned with the bulb and tip within the bladder lumen. The urinary bladder is decompressed, preventing meaningful evaluation of wall thickness. Reproductive: The uterus is absent. There is no adnexal mass or large cyst. Bones/joints: Unremarkable. No acute fracture. Soft tissues: The abdominal wall is intact. CT/CT abdomen pelvis wo con [id number] IMPRESSION: 1. No acute findings. 2. Cirrhosis and splenomegaly with trace ascites. 3. Incidental findings above. COMMENTS: Consistent with the [employer]'s Incidental Findings Committee white paper (J Am Gloria Radiol 2018): Any incidental renal lesion less than 1 cm or classified as too small to characterize, or any incidental cystic renal lesion characterized as simple-appearing, is likely benign. No follow-up imaging is recommended for these lesions per consensus recommendations based on imaging criteria. Radiation Dose CTDIVOL = (mGy): DLP = 318.41 (mGy-cm) Dictated By: Nito العلي MD Signed By: Nito العلي MD Signed Date/Time: 01/23/20555 DD/ 4 EKG Data ^: EKG 1: Attestation: I personally reviewed and interpreted this EKG as follows: EKG interpretation date: 01/23/20 EKG interpretation time: 00:40 Interpretation: Sinus bradycardia 55 beats a minute, normal axis, no blocks, normal intervals, no acute ST or T wave changes. Discharge Plan Discharge Patient Disposition: Admitted As Inpatient Clinical Impression: Lower gastrointestinal hemorrhage, Non-ST elevation NM (NSTEMI) Condition: Stable Referrals: Marcelina Yan PA [Primary Care Provider] - Coding Level of Care Code ED Poultry Cutter for Chg Fwd Exam Comprehensive
[2020-01-23] MEDS: sodium chloride 0.9% 1,000 ML 999 ML IV (04:04)
[2020-01-23] MEDS: ondansetron 2 mg/ML SDV 2 mL 4 MG IVP (04:06)
[2020-01-23 04:54] LABS: Basophils # 0.1 10^3/uL (0.0-0.1); Basophils % 0.5 %; Eosinophils # 0.2 10^3/uL (0.0-0.8); Eosinophils % 1.5 %; Hematocrit 33.1 % (37.0-47.0); Hemoglobin 10.3 g/dL (11.5-15.3); Lymphocytes % 31.1 %; Mean Corpuscular HGB Conc 31.1 g/dL (30.0-36.0); Mean Corpuscular Hemoglobin 26.1 pg (28.0-34.0); Mean Corpuscular Volume 83.8 fL (81-99); Mean Platelet Volume 10.2 fL (7.4-10.4); Monocytes # 0.8 10^3/uL (0.2-0.9); Monocytes % 5.8 %; Neutrophils # 7.81 10^3/uL (1.8-7.7); Neutrophils % 60.8 %; Nucleated Red Blood Cells % 0 %; Platelet Count 375 10^3/cmm (130-400); Red Blood Count 3.95 10^6/uL (4.1-5.3); Red Cell Distribution Width 20.2 % (12.1-15.1); White Blood Count 12.9 10^3/uL (4.0-10.0)
[2020-01-23 05:03] LABS: INR 1.19 (0.8-1.2)
[2020-01-23 05:12] LABS: Alanine Aminotransferase < 5 U/L (0-33); Alkaline Phosphatase 132 IU/L (35-105); Aspartate Amino Transferase 21 U/L (0-32); Calcium 9.3 mg/dL (8.5-10.5); Carbon Dioxide 18 mmol/L (22-29); Chloride 102 mmol/L (98-107); Globulin 3.4 g/dL (1.3-4.6); Glucose 149 mg/dL (65-115); Magnesium 2.7 mg/dL (1.7-2.3); Osmolality Calculated 307 mOsm/kg (285-295); Sodium 131 mmol/L (136-145); Total Bilirubin 0.3 mg/dL (0.15-1.2); Total Protein 6.4 g/dL (6.6-8.7)
[2020-01-23 05:13] LABS: Lactic Sepsis W/Reflex 0.9 mmol/L (0.5-2.2)
[2020-01-23 05:16] LABS: Anion Gap 16.9 (5-19); Blood Urea Nitrogen 103 mg/dL (8-23); Potassium 5.9 mmol/L (3.5-5.1)
[2020-01-23 05:17] LABS: Troponin(5th) Baseline 113 ng/L (0-10)
[2020-01-23 05:42] LABS: Add Urine Microscopic? YES; Bilirubin Urine 1+ (Negative); Blood Urine 2+ (Negative); Glucose Urine UA Norm (Normal); Ketones Urine Negative (Negative); Leukocyte Esterase Urine Negative (Negative); Nitrate Urine Negative (Negative); Protein Urine 1+ (Negative); Specific Gravity, Urine 1.015 (1.005-1.030); Urine Appearance Cloudy (CLEAR); Urine Color Yellow (Yellow); Urobilinogen Urine Norm (Negative); pH Urine 5 (5-7)
[2020-01-23] MEDS: sodium chloride 0.9% 1,000 ML 100 ML IV ×2 (05:43→15:20)
[2020-01-23] MEDS: piperacillin-tazobactam 3.375 GM in sodium chloride 0.9% (plus) 50 ML IV (05:43)
[2020-01-23 05:44] LABS: Bacteria Urine 1+ /hpf; Mucus Urine TRACE /hpf; RBC Urine 0-4 /hpf (0-2); Squamous Epithelial Cell Urine 0-4 /hpf (0-5); WBC Urine 0-4 /hpf (0-5)
[2020-01-23 05:45] LABS: Add Urine Culture? No; Amorphous Sediment Urine 1+ /hpf
--- NOTE | 2020-01-23 05:59 | ECG_ITS ---
[facility] Test Date: 2020-01-23 Pat Name: Chelsi Berger Department: Room: Gender: Female Veterinary Epidemiologist: : 1940 Requested By: Nichelle Palencia Order Number: [id number] MD: JACKIE SAGASTUME Measurements Intervals [place] Rate: 55 P: -25 WV: 140 QRS: 68 QRSD: 109 T: 58 QT: 468 QTc: 452 Interpretive Statements SINUS BRADYCARDIA MODERATE INTRAVENTRICULAR CONDUCTION DELAY [105+ ms QRS DURATION, 80+ ms Q/S IN V1/V2, NO Q AND 60+ ms R IN I/aVL/V5/V6] Compared to ECG 01/23/2020 04:40:12 Intraventricular conduction delay now present Electronically Signed On 01-24-2020 19:35:15 MACHINE MAINTENANCE TECHNICIAN by JACKIE SAGASTUME [id number]
--- NOTE | 2020-01-23 06:24 | PC.NURSE ---
Transfusion order cancelled per ED physician
--- NOTE | 2020-01-23 06:44 | PM.HP ---
Providers/Chief Complaint Admitting Physician: Gordon Murillo MD Primary Care Provider: Marcelina Yan Chief Complaint: gi bleed History of Present Illness Chelsi Berger is a 79 year old female with a past medical history of insulin-dependent type 2 diabetes mellitus, chronic kidney disease stage III, CAD status post stenting x1, mixed systolic and diastolic heart failure, last ejection fraction 30 to 35%, moderate global hypokinesia, chronic anemia, diastolic heart failure, restless leg syndrome, hyperlipidemia, hypertension, moderate pulmonary hypertension, moderate to severe mitral regurg who presents to [facility] due to complaints of bloody bowel movement this evening. Patient tells me that this evening, a few hours ago, she is not sure the exact time, she had a very large bloody bowel movement, blood was in the stool, and bright red blood. Has some complaints of diffuse abdominal pain, mild. She did feel lightheaded and dizzy, felt weak and fatigued. She called EMS who brought her to [facility]. Patient has a history of GI bleeds, has been admitted to [facility] in 07/31/2019 for GI bleed, medically managed as patient did not want an EGD or colonoscopy. She presented again to [facility] on 08/05/2019 for recurrent bleeding, was transferred up to [place], she is not sure which hospital, she is not exactly sure which test they did, she denies a EGD or colonoscopy being performed, but told me that the bleeding stopped, and she was sent home. She denies any episodes of recurrent bleeding, no history of bloody or black stools since she got to the hospital. She does tell me that she has been feeling chronically fatigued, weak, malaise, more short of breath with exertion, intermittent episodes of lightheadedness and dizziness. Denies chest pain, denies palpitations. Denies using any blood thinners, denies using any only romi-[id number]-[id number] naproxen or Aleve. Denies using a baby aspirin or Plavix. In the emergency room patient was found to be hypotensive, blood pressure 96/49, I was told by the ER provider that after a liter bolus, her blood pressures improved to the 110s over 60s, she was feeling better, she has 2 units of blood will be transfused, INR 1.19, BUN 103, creatinine 3.1, troponin I 113, EKG sinus bradycardia. Review of Systems Const: Reports: fatigue and malaise; Denies: fever(s) or chills Eyes: Denies: change in vision or blurry vision ENMT: Denies: nasal congestion Card: Denies: chest pain or palpitations Resp: Reports: dyspnea; Denies: productive cough, non-productive cough or wheezing GI: Reports: abdominal pain and hematochezia; Denies: nausea, vomiting, hematemesis, diarrhea, constipation or melena : Denies: flank pain, dysuria or urinary frequency Musc: Denies: neck pain or back pain Skin/Breast: Denies: rash Neuro: Denies: headache(s), dizziness or vertigo Psych: Denies: anxiety or depression Endo: Denies: polyuria or polydipsia Medications/Allergies Home Medications Medication Instructions Recorded Confirmed Last Taken Type Multi For Her 1 tab-cap PO DAILY 03/19/19 08/05/19 08/05/19 History Tresiba FlexTouch U-100 10 unit SUBCUT BEDTIME 03/19/19 08/05/19 08/04/19 History acetaminophen [Tylenol] 325 mg PO PRN PRN 03/19/19 08/05/19 08/04/19 History atorvastatin [Lipitor] 40 mg PO DAILY 03/19/19 08/05/19 08/05/19 History carbidopa-levodopa [Sinemet CR] 1 tab PO TID 03/19/19 08/05/19 08/05/19 History carvedilol [Coreg] 6.25 mg PO BID 03/19/19 08/05/19 08/05/19 History entacapone 200 mg PO TID 03/19/19 08/05/19 08/05/19 History insulin aspart U-100 [Novolog See Rx Instructions .ROUTE .COMPLEX 03/19/19 08/05/19 08/05/19 History U-100 Insulin aspart] melatonin 30 mg PO BEDTIME 03/19/19 08/05/19 08/04/19 History ropinirole 1 mg PO DAILY 03/19/19 08/05/19 08/05/19 History ferrous sulfate 325 mg PO BID #60 tab 03/21/19 08/05/19 08/05/19 Rx furosemide 40 mg PO DAILY@0800 #30 tab 03/21/19 08/05/19 08/05/19 Rx pantoprazole 40 mg PO DAILY #30 tab 03/21/19 08/05/19 08/05/19 Rx mag oxide 400 mg PO DAILY 03/28/19 08/05/19 08/05/19 History trazodone 50 mg PO BEDTIME 07/29/19 08/05/19 08/04/19 History Augmentin 1 tab PO Q8H 08/05/19 08/05/19 08/05/19 History tramadol 50 mg PO QID PRN 08/05/19 08/05/19 Unknown History Allergies Allergy/AdvReac Type Severity Reaction Status Date / Time aspirin Allergy Unknown Verified 03/19/19 18:10 PFSH Acute PFSH: Medical History Anemia Chronic kidney disease, stage III (moderate) Coronary artery disease Diastolic heart failure Hyperlipidemia Hypertension Liver cirrhosis Lower GI bleed Moderate to severe pulmonary hypertension Oxygen dependent 2L per [place] Parkinsons disease Type 2 diabetes mellitus Surgical History History of coronary artery stent placement 2006 History of tonsillectomy and adenoidectomy Hx of appendectomy Hx of cholecystectomy Hx of hysterectomy Family History Mother CAD (coronary artery disease) Myocardial infarction Diabetes Hypertension Social History Smoking and tobacco status: never smoked Alcohol intake: never Vitals/I&O/Wt Last Vital Signs Temp 97.6 F 01/23/20 03:58 Pulse 56 L 01/23/20 06:25 Resp 12 01/23/20 06:25 BP 96/49 01/23/20 06:25 Pulse Ox 97 01/23/20 06:25 01/22/20 01/22/20 01/23/20 14:59 22:59 06:59 Intake Total 1050 / 1050 Balance 1050 / 1050 Weight last 48 hrs Weight 45.359 kg Physical Exam Const: COMMON NORMALS: no acute distress and patient oriented x3 GENERAL APPEARANCE: cooperative, comfortable and ill appearing NUTRITIONAL APPEARANCE: underweight HENMT: COMMON NORMALS: normocephalic HEAD & SCALP: normocephalic Eye: COMMON NORMALS: Equal, round and reactive pupils present, EOMs intact bilaterally and no papilledema GENERAL EYE: appearance normal, both eyes and all related structures PUPIL: Yes Equal, round and reactive pupils present DIRECT OPHTHALMOSCOPY: Yes no papilledema Neck/C-Spine: COMMON NORMALS: full ROM, no lymphadenopathy, no JVD and Thyroid normal THYROID: Thyroid normal Lymph: LYMPHATIC: no lymphadenopathy noted Resp: COMMON NORMALS: normal respiratory effort, No retractions, No use of accessory muscles and clear to auscultation bilaterally AUSCULTATION: clear to auscultation bilaterally Cardio: COMMON NORMALS: no JVD, regular rate, regular rhythm, S1 normal heart sound present, S2 normal heart sound present, No gallops present (Cardio), No clicks present (Cardio) and No murmurs present (Cardio) RATE: regular rate RHYTHM: regular rhythm HEART SOUNDS: S1 normal heart sound present and S2 normal heart sound present GI: COMMON NORMALS: Normal to inspection, nondistended, normoactive bowel sounds present, Soft to palpation, non-tender and No hepatosplenomegaly present PALPATION: Yes Soft to palpation, Yes Tenderness to palpation present (GI) Details: LLQ, RLQ, LUQ and RUQ and Yes No hepatosplenomegaly present Extremity: COMMON NORMALS: normal to inspection, full ROM and no pedal edema Neuro: COMMON NORMALS: patient oriented x3, CN's II-XII intact bilaterally, moves all extremities and no focal motor deficits Psych: COMMON NORMALS: mental status grossly normal, Normal thought process present and cooperative THOUGHT PROCESS: Normal thought process present Urinary Catheter Management^: Graham: Cath Placed During This Visit: yes Urinary Catheter Date of Insertion: 01/23/20 Urinary Catheter Time of Insertion: 05:05 Data : 01/23/20 04:20 01/23/20 04:20 A&P Assessment and plan (1) GI bleed: -Has components of upper and lower GI bleed -BUN 103, creatinine 3.1, hemoglobin 10.3 -She did have a negative EGD and colonoscopy a few years ago -Blood findings highly suspicious of recurrent diverticular bleed -On her last admission to [facility] she refused interventions for diverticular bleed, discharged with medical management -Readmitted a few days later, then transferred up to [place], patient not sure where exactly [facility] or [facility] will get records, she tells me that the bleeding just stopped on its own, she does not think that they did any tests, denies repeat EGD or colonoscopy -Has been feeling weak, fatigued, tired -No episodes of bloody or black stools in the ER PLAN: -Admit to ICU -Continue fluid boluses as needed -Monitor hemodynamics closely -Levophed as required if required -Consider octreotide drip, given cirrhosis, risk of esophageal variceal bleed, although I feel unlikely -will receive 2 units PRBC -Protonix 40 IV twice daily -Hemoglobin every 4 hours -Keep n.p.o. -I discussed repeat EGD and colonoscopy, patient agrees to proceed if required -Anticoagulation contraindicated given GI bleed, SCDs -Patient is a full code Status: Acute (2) Non-ST elevation SC (NSTEMI): -Likely type II NSTEMI, supply demand ischemia from GI bleed -Baseline troponin 113 -No acute ST-T wave changes on EKG -No complaints of chest pain -Monitor troponins, monitor serial EKGs -Antiplatelet therapy, anticoagulation contraindicated due to GI bleed -Beta-sarah contraindicated due to GI bleed Status: Acute (3) Hyperlipidemia: Status: Chronic (4) Hypertension: Status: Chronic (5) Mitral regurgitation: Status: Acute (6) Anemia: Status: Acute (7) Liver cirrhosis: -Has a history of liver cirrhosis, has not had any outpatient work-up, was supposed to see GI for a liver biopsy -Her hepatitis panel was negative on last admission -CT scan of the abdomen pelvis during this admission shows cirrhosis with splenomegaly with trace ascites -Etiology of liver cirrhosis unclear at this point, denies alcohol use, denies drug abuse Status: Acute (8) Parkinsons disease: Status: Acute (9) Type 2 diabetes mellitus: Status: Acute (10) Systolic CHF: -Echocardiogram in October 2019 showed an EF of 30 to 35%, moderate global hypokinesia, grade 3 diastolic dysfunction, mild mitral regurg -We will have to care for lead give her fluids, be careful not to fluid overload her Status: Acute Attestations Medical Necessity Statement*: Patient requires hospitalization, inpatient, greater than 2 midnights, for GI bleed, nstemi Coding Level of Care Code 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
[2020-01-23 07:02] LABS: Troponin 5 2HR 105.5 ng/L (0-10); Troponin 5 2HR Delta -7.5 ABS# (0-10)
--- NOTE | 2020-01-23 07:22 | US_ITS ---
WS: [id number] ULTRASOUND ABDOMEN CLINICAL INFORMATION: liver cirhosis COMPARISON: Ultrasound July 30, 2019 FINDINGS: Liver Size: Enlarged Craniocaudal length: 15.8 cm. Echogenicity: Coarse Surface nodularity: Cirrhotic Mass (size and location): None. Bile ducts Intrahepatic ducts: Normal. Common bile duct diameter: 1.9 cm. Gallbladder Removed Pancreas Not well seen Right kidney: Cortical thinning. Right kidney is identified. Limited visualization of 2 complex right renal cysts with internal debris. Cystic lesions measure 1.8 x 1.5 x 1.6 cm and 1.8 x 1.7 x 1.7 cm Hydronephrosis: None. Size: 8.6 cm x 3.0 cm x 4.0 cm Abdominal aorta and IVC Visualized portions are normal. Ascites: Small amount of ascites right upper quadrant US/US liver [id number] IMPRESSION: Limited examination due to bowel gas. 1. Hepatomegaly with cirrhosis. 2. Prior cholecystectomy. 3. Right kidney is poorly defined with cortical atrophy. 4. 2 small complex renal cysts with limited visualization
[2020-01-23] MEDS: pantoprazole 40 mg SDV IVP ×2 (08:54→19:55)
--- NOTE | 2020-01-23 09:30 | PM.PN ---
Subjective Subjective: Interval history: Denies any new complaints. Had one episode of bloody BM this morning, none since. No hematemesis, remains NPO. Hemoglobin at 8.4. 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 It appears that patient was admitted at [facility] in July 2019 and did undergo a colonoscopy at that time which only showed evidence of ascending polyp. Tubular adenoma on biopsy. -Fresh blood in stools currently suspicious of recurrent diverticular bleed -Last episode of bloody BM this morning. -Hemoglobin at 8.4, continue to monitor every 4 hours, threshold for transfusion to be at 8. -Blood pressure continues to be mostly 90s systolic, however patient currently comfortable, no concomitant tachycardia, continue IV fluid hydration and monitor closely.- -Protonix 40 IV twice daily -Hemoglobin every 4 hours -Keep n.p.o. -Anticoagulation contraindicated given GI bleed, SCDs Status: Acute (2) Non-ST elevation RI (NSTEMI): -Likely type II NSTEMI, supply demand ischemia from GI bleed -Baseline troponin 113 -No acute ST-T wave changes on EKG, serially negative delta's -No current complaint of chest pain Status: Acute (3) Hyperlipidemia: Status: Chronic (4) Hypertension: Status: Chronic (5) Mitral regurgitation: Last echocardiogram from 11/12/2019 with LV systolic function severely reduced with EF of 30 to 35%. Moderate global hypokinesis. Grade 3 diastolic dysfunction. Status: Acute (6) Anemia: Status: Acute (7) Liver cirrhosis: -Has a history of liver cirrhosis, has not had any outpatient work-up, was supposed to see GI for a liver biopsy -Her hepatitis panel was negative on last admission -CT scan of the abdomen pelvis during this admission shows cirrhosis with splenomegaly with trace ascites -Etiology of liver cirrhosis unclear at this point, denies alcohol use, denies drug abuse Status: Acute (8) Parkinsons disease: Status: Acute (9) Type 2 diabetes mellitus: Status: Acute (10) Systolic CHF: -Echocardiogram in October 2019 showed an EF of 30 to 35%, moderate global hypokinesia, grade 3 diastolic dysfunction, mild mitral regurg -We will have to care for lead give her fluids, be careful not to fluid overload her, reduce fluids to NS @ 50cc/hr Albumin x 1 now Status: Acute (11) NAGI (acute kidney injury): improving with hydration, continue to monitor, likely as result of hypotension Status: Acute (12) Hyperkalemia: 5.9 overnight >> now at 5.6, no corresponding EKG changes, monitor for now. 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
--- NOTE | 2020-01-23 09:59 | ECG_ITS ---
[facility] Test Date: 2020-01-23 Pat Name: Chelsi Berger Department: Room: ICU11 Gender: Female Non Destructive Evaluation Specialist: : [id number] Requested By: Nichelle Palencia Order Number: [id number] Reading MD: JACKIE SAGASTUME Measurements Intervals [place] Rate: 60 P: 65 NJ: 187 QRS: 10 QRSD: 116 T: 30 QT: 470 QTc: 470 Interpretive Statements SINUS RHYTHM MODERATE INTRAVENTRICULAR CONDUCTION DELAY [110+ ms QRS DURATION] Compared to ECG 01/23/2020 06:07:16 Sinus bradycardia no longer present Electronically Signed On 01-24-2020 19:34:45 BOAT PILOT by JACKIE SAGASTUME [id number]
--- NOTE | 2020-01-23 10:19 | PC.RESP ---
PULMONARY REHAB INFORMATION SENT TO PATIENT.
[2020-01-23] MEDS: ferrous sulfate EC 325 mg Tablet PO ×2 (10:29→18:28)
[2020-01-23] MEDS: atorvastatin 40 mg Tablet PO (10:29)
[2020-01-23] MEDS: carbidopa-levodopa ER 50-200mg Tablet 1 EACH PO ×3 (10:29→19:57)
[2020-01-23 11:22] LABS: Hematocrit 27.3 % (37.0-47.0); Hemoglobin 8.4 g/dL (11.5-15.3)
[2020-01-23 11:30] LABS: Glucose Point of Care 146 mg/dL (70-110)
[2020-01-23 11:31] LABS: Alanine Aminotransferase < 5 U/L (0-33); Albumin Level 2.4 g/dL (3.5-5.2); Alkaline Phosphatase 104 IU/L (35-105); Anion Gap 16.6 (5-19); Aspartate Amino Transferase 18 U/L (0-32); Calcium 8.5 mg/dL (8.5-10.5); Carbon Dioxide 17 mmol/L (22-29); Chloride 105 mmol/L (98-107); Globulin 3.3 g/dL (1.3-4.6); Glucose 97 mg/dL (65-115); Osmolality Calculated 306 mOsm/kg (285-295); Potassium 5.6 mmol/L (3.5-5.1); Sodium 133 mmol/L (136-145); Total Bilirubin 0.2 mg/dL (0.15-1.2); Total Protein 5.7 g/dL (6.6-8.7)
--- NOTE | 2020-01-23 11:31 | PC.OT ---
OT evaluation attempted today. Pt was agreeable to answering questions but refused to get up or do anything else. Pt was very tired and closed her eyes frequently during questions. Will attempt again tomorrow. Co-sign: JASMIN Moya/Brenda
[2020-01-23 11:33] LABS: Lactic Sepsis W/Reflex 0.8 mmol/L (0.5-2.2)
[2020-01-23 11:36] LABS: Blood Urea Nitrogen 98 mg/dL (8-23); Troponin 5 6HR 104.1 ng/L (0-10); Troponin 5 6HR Delta -8.9 ng/L (0-12)
[2020-01-23 11:58] LABS: Glucose Point of Care 86 mg/dL (70-110)
--- NOTE | 2020-01-23 12:32 | PM.CONSULT ---
Providers/Reason For Consult Consulting Physican/Specialty*: Dr. Ng Reason for Consult*: GI bleed Attending Physician: Reva Ng MD Primary Care Provider: Marcelina Yan History of Present Illness History of Present Illness Chelsi Berger is a 79 year old female who presented to the ER this morning with complaints of multiple bloody bowel movements. Patient also had a bloody bowel movement in the ER. She is a bit confused though awake. She had a similar episode in July 2019 and was transferred to [place] where she underwent EGD and colonoscopy which showed diverticulosis. Patient is not on any chronic anticoagulation Review of Systems General: Reports: ROS unobtainable due to mental status Meds/Allergies Home Medications and Allergies Home Medications Medication Instructions Recorded Confirmed Last Taken Type Multi For Her 1 tab-cap PO DAILY 03/19/19 01/23/20 08/05/19 History Tresiba FlexTouch U-100 10 unit SUBCUT BEDTIME 03/19/19 01/23/20 08/04/19 History acetaminophen [Tylenol] 325 mg PO PRN PRN 03/19/19 01/23/20 08/04/19 History atorvastatin [Lipitor] 40 mg PO DAILY 03/19/19 01/23/20 08/05/19 History carbidopa-levodopa [Sinemet CR] 1 tab PO TID 03/19/19 01/23/20 08/05/19 History carvedilol [Coreg] 6.25 mg PO BID 03/19/19 01/23/20 08/05/19 History entacapone 200 mg PO TID 03/19/19 01/23/20 08/05/19 History insulin aspart U-100 [Novolog See Rx Instructions .ROUTE .COMPLEX 03/19/19 01/23/20 08/05/19 History U-100 Insulin aspart] melatonin 30 mg PO BEDTIME 03/19/19 01/23/20 08/04/19 History ropinirole 1 mg PO DAILY 03/19/19 01/23/20 08/05/19 History ferrous sulfate 325 mg PO BID #60 tab 03/21/19 01/23/20 08/05/19 Rx furosemide 40 mg PO DAILY@0800 #30 tab 03/21/19 01/23/20 08/05/19 Rx pantoprazole 40 mg PO DAILY #30 tab 03/21/19 01/23/20 08/05/19 Rx mag oxide 400 mg PO DAILY 03/28/19 01/23/20 08/05/19 History trazodone 50 mg PO BEDTIME 07/29/19 01/23/20 08/04/19 History tramadol 50 mg PO QID PRN 08/05/19 01/23/20 Unknown History escitalopram oxalate [Lexapro] 10 mg PO DAILY 01/23/20 01/23/20 Unknown History iron 650 mg PO BID 01/23/20 01/23/20 Unknown History lorazepam [Ativan] 0.5 mg PO BEDTIME 01/23/20 01/23/20 Unknown History spironolactone 50 mg PO DAILY 01/23/20 01/23/20 Unknown History Allergies Allergy/AdvReac Type Severity Reaction Status Date / Time aspirin Allergy Unknown Verified 03/19/19 18:10 Current Medications Current Medications Generic Name Dose Route Start Last Admin Trade Name Freq PRN Reason Stop Dose Admin Atorvastatin Calcium 40 mg 01/23/20 09:00 01/23/20 10:29 Lipitor PO 40 mg DAILY KIMBERLY Administration Carbidopa/Levodopa 1 each 01/23/20 09:00 01/23/20 10:29 Sinemet Er PO 1 each TID KIMBERLY Administration Ferrous Sulfate 325 mg 01/23/20 09:00 01/23/20 10:29 Ferrous Sulfate PO 325 mg BID KIMBERLY Administration Sodium Chloride 1,000 mls @ 100 mls/hr 01/23/20 04:00 01/23/20 05:43 Sodium Chloride 0.9% IV 100 mls/hr .Q10H KIMBERLY Administration Dextrose/Sodium Chloride 1,000 mls @ 75 mls/hr 01/23/20 07:22 01/23/20 10:25 Dextrose 5%-Sod Chloride 0.45% IV Not Given .[id number] Insulin Aspart 0 unit 01/23/20 08:00 01/23/20 08:54 Novolog SUBCUT 2 unit TIDWM KIMBERLY Administration Protocol Non-Formulary Medication 200 mg 01/23/20 09:00 01/23/20 10:31 Entacapone PO Not Given TID KIMBERLY Pantoprazole Sodium 40 mg 01/23/20 08:30 01/23/20 08:54 Protonix IVP 40 mg Q12H KIMBERLY Administration PFSH Acute PFSH: Medical History Anemia Chronic kidney disease, stage III (moderate) Coronary artery disease Diastolic heart failure Hyperlipidemia Hypertension Liver cirrhosis Lower GI bleed Moderate to severe pulmonary hypertension Oxygen dependent 2L per [place] Parkinsons disease Type 2 diabetes mellitus Surgical History History of coronary artery stent placement 2006 History of tonsillectomy and adenoidectomy Hx of appendectomy Hx of cholecystectomy Hx of hysterectomy Family History Mother CAD (coronary artery disease) Myocardial infarction Diabetes Hypertension Social History Smoking and tobacco status: never smoked Alcohol intake: never Vitals/I&O/Wt Last Vital Signs Temp 97.8 F 01/23/20 07:00 Pulse 58 L 01/23/20 10:30 Resp 12 01/23/20 10:30 BP 96/52 01/23/20 10:30 Pulse Ox 100 01/23/20 10:30 01/22/20 01/23/20 01/23/20 22:59 06:59 14:59 Intake Total 1050 / 1050 Output Total 250 / 250 Balance 1050 / 1050 -250 / -250 Weight last 48 hrs Weight 100 lb Physical Exam Narrative: EXAM NARRATIVE: HEENT: Normocephalic Eye: Sclera /conjunctiva normal Respiratory and chest: Bilateral clear breath sounds on auscultation Cardiovascular: Normal S1 and S2 heart sounds Abdomen: Soft to palpation,, nondistended, minimally tender Neurological: Awake follows commands Skin: Intact, no lesions appreciated on gross exam Urinary Catheter Management^: Graham: Cath Placed During This Visit: yes Reason for Continuing Indwelling Catheter: Accurate Measurement of Urinary Output in Critically Ill Patients Urinary Catheter Date of Insertion: 01/23/20 Urinary Catheter Time of Insertion: 05:05 A&P Assessment and plan (1) GI bleed: 79-year-old female with hematochezia most likely secondary to diverticulosis. No significant active bleeding. Patient's creatinine was 2.7 and therefore she did not obtain a CT with contrast to rule out active extravasation. Her last hemoglobin was 8.2. At this point we will continue with monitoring since majority of the diverticular bleeds should resolve spontaneously. 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
--- NOTE | 2020-01-23 14:57 | PC.PT ---
Patient refused PT evaluation at this time. Will try again tomorrow.
[2020-01-23] MEDS: albumin 12.5 GM/50 ML VIAL IV (15:52)
[2020-01-23 16:25] LABS: Hematocrit 27.1 % (37.0-47.0); Hemoglobin 8.2 g/dL (11.5-15.3)
[2020-01-23 16:54] LABS: Alanine Aminotransferase < 5 U/L (0-33); Albumin Level 2.5 g/dL (3.5-5.2); Alkaline Phosphatase 103 IU/L (35-105); Anion Gap 14.6 (5-19); Aspartate Amino Transferase 16 U/L (0-32); Calcium 8.2 mg/dL (8.5-10.5); Carbon Dioxide 15 mmol/L (22-29); Chloride 109 mmol/L (98-107); Globulin 3.1 g/dL (1.3-4.6); Glucose 78 mg/dL (65-115); Osmolality Calculated 304 mOsm/kg (285-295); Potassium 5.6 mmol/L (3.5-5.1); Sodium 133 mmol/L (136-145); Total Bilirubin 0.3 mg/dL (0.15-1.2); Total Protein 5.6 g/dL (6.6-8.7)
[2020-01-23 16:58] LABS: Blood Urea Nitrogen 93 mg/dL (8-23)
[2020-01-23 17:14] LABS: Glucose Point of Care 83 mg/dL (70-110)
[2020-01-23] MEDS: dextrose 5%-sod chloride 0.45% 1,000 ML 75 ML IV (19:56)
[2020-01-23 20:12] LABS: Glucose Point of Care 75 mg/dL (70-110)
[2020-01-23 21:18] LABS: Hematocrit 28.5 % (37.0-47.0); Hemoglobin 8.7 g/dL (11.5-15.3)
[2020-01-24] VITALS (26 sets, daily range): BP systolic 101–140; BP diastolic 45–74; PULSE 57–74; RESP 10–21; TEMP 36.4–36.8; O2SAT 91–100
[2020-01-24 05:11] LABS: Basophils # 0.1 10^3/uL (0.0-0.1); Basophils % 0.7 %; Eosinophils # 0.2 10^3/uL (0.0-0.8); Eosinophils % 1.4 %; Hematocrit 32.2 % (37.0-47.0); Hemoglobin 9.5 g/dL (11.5-15.3); Lymphocytes # 3.9 10^3/uL (0.8-4.8); Lymphocytes % 26.8 %; Mean Corpuscular HGB Conc 29.5 g/dL (30.0-36.0); Mean Corpuscular Hemoglobin 26.4 pg (28.0-34.0); Mean Corpuscular Volume 89.4 fL (81-99); Mean Platelet Volume 10.1 fL (7.4-10.4); Monocytes # 1.2 10^3/uL (0.2-0.9); Monocytes % 7.9 %; Neutrophils # 9.14 10^3/uL (1.8-7.7); Neutrophils % 62.7 %; Nucleated Red Blood Cells % 0 %; Platelet Count 317 10^3/cmm (130-400); Red Cell Distribution Width 20.3 % (12.1-15.1); White Blood Count 14.6 10^3/uL (4.0-10.0)
[2020-01-24 05:40] LABS: Alanine Aminotransferase < 5 U/L (0-33); Albumin Level 2.6 g/dL (3.5-5.2); Alkaline Phosphatase 106 IU/L (35-105); Anion Gap 16.6 (5-19); Aspartate Amino Transferase 21 U/L (0-32); Calcium 8.6 mg/dL (8.5-10.5); Carbon Dioxide 15 mmol/L (22-29); Chloride 108 mmol/L (98-107); Globulin 3.5 g/dL (1.3-4.6); Glucose 98 mg/dL (65-115); Magnesium 2.5 mg/dL (1.7-2.3); Osmolality Calculated 303 mOsm/kg (285-295); Phosphorus 4.8 mg/dL (2.5-4.5); Potassium 5.6 mmol/L (3.5-5.1); Sodium 134 mmol/L (136-145); Total Bilirubin 0.4 mg/dL (0.15-1.2); Total Protein 6.1 g/dL (6.6-8.7)
[2020-01-24 05:54] LABS: Blood Urea Nitrogen 84 mg/dL (8-23)
--- NOTE | 2020-01-24 07:18 | PC.NURSE ---
recd. awake, very confused.
[2020-01-24 08:47] LABS: Hematocrit 27.2 % (37.0-47.0); Hemoglobin 8.6 g/dL (11.5-15.3)
[2020-01-24] MEDS: dextrose 5%-sod chloride 0.45% 1,000 ML 75 ML IV ×2 (09:23→22:58)
[2020-01-24] MEDS: pantoprazole 40 mg SDV IVP ×2 (09:52→21:20)
[2020-01-24] MEDS: cefTRIAXone 1,000 MG in sodium chloride 0.9% (plus) 50 ML 100 MG IV (09:53)
[2020-01-24] MEDS: atorvastatin 40 mg Tablet PO (09:53)
[2020-01-24] MEDS: ferrous sulfate EC 325 mg Tablet PO ×2 (09:53→17:38)
[2020-01-24 10:08] LABS: Glucose Point of Care 115 mg/dL (70-110)
[2020-01-24] MEDS: carbidopa-levodopa ER 50-200mg Tablet 1 EACH PO ×3 (10:08→21:04)
--- NOTE | 2020-01-24 10:19 | PC.NURSE ---
dr. boyce in. will transfer to [facility]
--- NOTE | 2020-01-24 11:25 | PC.NURSE ---
transferred to [address] [place] [address] with clothing.
[2020-01-24 11:34] LABS: Glucose Point of Care 165 mg/dL (70-110)
[2020-01-24 12:31] LABS: Hemoglobin 8.6 g/dL (11.5-15.3)
--- NOTE | 2020-01-24 15:19 | P.PN_ITS ---
Subjective Subjective: Interval history: Hemoglobin remained stable at 8.6. No further episodes of bloody bowel movements. Blood pressure is much better now ranging between 100-1 20 systolics. Will resume clear liquid diet today. NAGI additionally improving with creatinine at 2.4. Medications: Reviewed: Yes Vitals/I&O/Wt Last Vital Signs Temp 97.5 F L 01/24/20 11:50 Pulse 62 01/24/20 11:50 Resp 16 01/24/20 11:50 BP 120/66 01/24/20 11:50 Pulse Ox 100 01/24/20 11:50 01/24/20 01/24/20 01/24/20 06:59 14:59 22:59 Intake Total 1460 / 1460 Output Total 615 / 1370 725 / 725 Balance -615 / -355.000 735 / 735 Weight last 48 hrs Weight 45.359 kg Physical Exam Narrative: EXAM NARRATIVE: GEN: Awake, alert oriented x2, no acute distress CVS: S1S2 N RS: CTA B/L except crackles over RUL Abd: Soft, nt/nd , bs+ TUNNEL ELASTIC OPERATOR ZIGZAG: moves all extremities Urinary Catheter Management^: Graham: Cath Placed During This Visit: yes, but has since been removed by the nurse Reason for Continuing Indwelling Catheter: Decision to DC Catheter Urinary Catheter Date of Insertion: 01/23/20 Urinary Catheter Time of Insertion: 05:05 Date Urinary Catheter Removed: 01/24/20 Time Urinary Catheter Discontinued: 11:00 Data : 01/25/20 05:32 01/25/20 05:32 A&P Assessment and plan (1) GI bleed: - hemoglobin 10.3 >>8.4 -Results obtained from primary care's office today. It appears that patient was admitted at [facility] in July 2019 and did undergo a colonoscopy at that time w [facility] only showed evidence of ascending polyp. Tubular adenoma on biopsy. -Fresh blood in stools currently suspicious of recurrent diverticular bleed -Last episode of bloody BM this morning. -Hemoglobin at 8.4, continue to monitor every 4 hours, threshold for transfusion to be at 8. -Blood pressure continues to be mostly 90s systolic, however patient currently comfortable, no concomitant tachycardia, continue IV fluid hydration and monitor closely.- -Protonix 40 IV twice daily -Hemoglobin every 4 hours -Keep n.p.o. -Anticoagulation contraindicated given GI bleed, SCDs Status: Acute (2) Non-ST elevation [place] (NSTEMI): -Likely type II NSTEMI, supply demand ischemia from GI bleed -Baseline troponin 113 -No acute ST-T wave changes on EKG, serially negative delta's -No current complaint of chest pain Status: Acute (3) Hyperlipidemia: Status: Chronic (4) Hypertension: Status: Chronic (5) Mitral regurgitation: Last echocardiogram from 11/12/2019 with LV systolic function severely reduced with EF of 30 to 35%. Moderate global hypokinesis. Grade 3 diastolic dysfunction. Status: Acute (6) Anemia: Status: Acute (7) Liver cirrhosis: -Has a history of liver cirrhosis, has not had any outpatient work-up, was supposed to see GI for a liver biopsy -Her hepatitis panel was negative on last admission -CT scan of the abdomen pelvis during this admission shows cirrhosis with splenomegaly with trace ascites -Etiology of liver cirrhosis unclear at this point, denies alcohol use, denies drug abuse Status: Acute (8) Parkinsons disease: Status: Acute (9) Type 2 diabetes mellitus: Status: Acute (10) Systolic CHF: -Echocardiogram in October 2019 showed an EF of 30 to 35%, moderate global hypokinesia, grade 3 diastolic dysfunction, mild mitral regurg -We will have to care for lead give her fluids, be careful not to fluid overload her, reduce fluids to NS @ 50cc/hr Albumin x 1 now Status: Acute (11) NAGI (acute kidney injury): improving with hydration, continue to monitor, likely as result of hypotension Status: Acute (12) Hyperkalemia: 5.9 overnight >> now at 5.6, no corresponding EKG changes, monitor for now. T.bili WNL, unlikely hemolysis Status: Acute Attestations Medical Necessity Statement*: Transfer out of ICU Coding Level of Care Code Acute Transformation Specialist for [facility] Fwd Diagnoses GI bleed K92.2 Non-ST elevation [place] (NSTEMI) I21.4 Hyperlipidemia E78.5 Hypertension I10 Mitral regurgitation I34.0 Anemia D64.9 Liver cirrhosis K74.60 Parkinsons disease G20 Type 2 diabetes mellitus E11.9 Systolic CHF I50.20 NAGI (acute kidney injury) N17.9 Hyperkalemia E87.5
[2020-01-24] MEDS: dextrose 50% syringe 50 mL 25 ML IVP (15:54)
[2020-01-24] MEDS: insulin regular-human 10 UNIT in SYRINGE 1 EACH IVP (15:55)
--- NOTE | 2020-01-24 16:45 | P.PN_ITS ---
Subjective Subjective: Interval history: Patient is transferred from the ICU to the floor, no further episodes of bleeding per rectum or bowel movements. Patient denies any abdominal pain and tolerated a clear liquid diet, no nausea or vomiting. Vitals/I&O/Wt Last Vital Signs Temp 97.8 F 01/24/20 16:00 Pulse 69 01/24/20 16:00 Resp 18 01/24/20 16:00 BP 114/54 01/24/20 16:00 Pulse Ox 96 01/24/20 16:00 01/24/20 01/24/20 01/24/20 06:59 14:59 22:59 Intake Total 1460 / 1460 Output Total 615 / 1420 725 / 725 Balance -615 / -355.000 735 / 735 Weight last 48 hrs Weight 100 lb Physical Exam Narrative: EXAM NARRATIVE: Abdomen: Soft, nondistended, nontender Urinary Catheter Management^: Graham: Cath Placed During This Visit: yes, but has since been removed by the nurse Reason for Continuing Indwelling Catheter: Decision to DC Catheter Urinary Catheter Date of Insertion: 01/23/20 Urinary Catheter Time of Insertion: 05:05 Date Urinary Catheter Removed: 01/24/20 Time Urinary Catheter Discontinued: 11:00 Data : 01/24/20 12:07 01/24/20 04:40 A&P Assessment and plan (1) GI bleed: 79-year-old female with was not had any bleeding for the last 24 hours. She had a colonoscopy earlier this year suggesting that the bleed was most likely diverticular in origin. Currently patient is hemodynamically stable and her hemoglobin has stayed stable around 8.6. Advance to full liquid diet Medical management as per Dr. Medina Status: Acute Attestations Medical Necessity Statement*: Hematochezia requiring continued inpatient stay Coding Level of Care Code Acute Food And Beverage Cashier for [facility] Diagnoses GI bleed K92.2
[2020-01-24 17:00] LABS: Hematocrit 25.7 % (37.0-47.0); Hemoglobin 8.1 g/dL (11.5-15.3)
[2020-01-24 17:18] LABS: Glucose Point of Care 182 mg/dL (70-110)
[2020-01-24 21:36] LABS: Glucose Point of Care 102 mg/dL (70-110)
[2020-01-24 23:06] LABS: Hematocrit 26.8 % (37.0-47.0); Hemoglobin 8.5 g/dL (11.5-15.3)
[2020-01-25] VITALS (7 sets, daily range): BP systolic 108–157; BP diastolic 49–70; PULSE 72–84; RESP 16–18; TEMP 36.7–36.9; O2SAT 94–99
[2020-01-25 06:17] LABS: Basophils # 0.1 10^3/uL (0.0-0.1); Basophils % 0.4 %; Eosinophils # 0.2 10^3/uL (0.0-0.8); Eosinophils % 1.3 %; Hematocrit 26.5 % (37.0-47.0); Hemoglobin 8.3 g/dL (11.5-15.3); Lymphocytes # 3.4 10^3/uL (0.8-4.8); Lymphocytes % 27.2 %; Mean Corpuscular HGB Conc 31.3 g/dL (30.0-36.0); Mean Corpuscular Hemoglobin 26.3 pg (28.0-34.0); Mean Corpuscular Volume 83.9 fL (81-99); Mean Platelet Volume 10.2 fL (7.4-10.4); Monocytes # 0.8 10^3/uL (0.2-0.9); Monocytes % 6.2 %; Neutrophils # 8.06 10^3/uL (1.8-7.7); Neutrophils % 64.6 %; Nucleated Red Blood Cells % 0 %; Platelet Count 345 10^3/cmm (130-400); Red Blood Count 3.16 10^6/uL (4.1-5.3); White Blood Count 12.5 10^3/uL (4.0-10.0)
--- NOTE | 2020-01-25 06:19 | PC.NURSE ---
Patient is incontinent of bladder. Brief soaked with copious amounts of urine along with frank.
[2020-01-25 06:58] LABS: Alanine Aminotransferase < 5 U/L (0-33); Albumin Level 2.6 g/dL (3.5-5.2); Alkaline Phosphatase 107 IU/L (35-105); Anion Gap 14.8 (5-19); Aspartate Amino Transferase 20 U/L (0-32); Blood Urea Nitrogen 73 mg/dL (8-23); Calcium 8.3 mg/dL (8.5-10.5); Carbon Dioxide 16 mmol/L (22-29); Chloride 108 mmol/L (98-107); Globulin 3.1 g/dL (1.3-4.6); Glucose 113 mg/dL (65-115); Magnesium 2.1 mg/dL (1.7-2.3); Osmolality Calculated 300 mOsm/kg (285-295); Phosphorus 3.2 mg/dL (2.5-4.5); Potassium 4.8 mmol/L (3.5-5.1); Sodium 134 mmol/L (136-145); Total Bilirubin 0.3 mg/dL (0.15-1.2); Total Protein 5.7 g/dL (6.6-8.7)
[2020-01-25] MEDS: pantoprazole 40 mg SDV IVP ×2 (09:06→21:18)
[2020-01-25] MEDS: ferrous sulfate EC 325 mg Tablet PO ×2 (09:06→17:28)
[2020-01-25] MEDS: atorvastatin 40 mg Tablet PO (09:06)
[2020-01-25] MEDS: cefTRIAXone 1,000 MG in sodium chloride 0.9% (plus) 50 ML 100 MG IV (09:07)
--- NOTE | 2020-01-25 09:53 | PM.PN ---
Subjective Subjective: Interval history: Patient had a small bowel movement last night which is dark but no fresh blood. Denies any abdominal pain, keen to go home Vitals/I&O/Wt Last Vital Signs Temp 98.2 F 01/25/20 07:44 Pulse 84 01/25/20 07:44 Resp 16 01/25/20 07:44 BP 113/55 01/25/20 07:44 Pulse Ox 99 01/25/20 07:44 01/24/20 01/25/20 01/25/20 22:59 06:59 14:59 Intake Total 1360 / 2870 650 / 650 Output Total 150 / 1025 150 / 1025 Balance 1210 / 1845 -150 / 1845 650 / 650 Physical Exam Narrative: EXAM NARRATIVE: Abdomen: Soft, nontender, nondistended Urinary Catheter Management^: Graham: Cath Placed During This Visit: yes, but has since been removed by the nurse Reason for Continuing Indwelling Catheter: Decision to DC Catheter Urinary Catheter Date of Insertion: 01/23/20 Urinary Catheter Time of Insertion: 05:05 Date Urinary Catheter Removed: 01/24/20 Time Urinary Catheter Discontinued: 11:00 Data : 01/25/20 05:32 01/25/20 05:32 A&P Assessment and plan (1) GI bleed: 79-year-old female with was not had any bleeding for the last 24 hours. She had a colonoscopy earlier this year suggesting that the bleed was most likely diverticular in origin. Currently patient is hemodynamically stable and her hemoglobin has stayed stable around 8. no evidence of active GI bleed Advance to GI soft diet Status: Acute Attestations Medical Necessity Statement*: GI bleed, stable awaiting discharge to SNF Coding Level of Care Code Acute Blocking Machine Operator for [facility] Diagnoses GI bleed K92.2
[2020-01-25] MEDS: carbidopa-levodopa ER 50-200mg Tablet 1 EACH PO ×3 (10:24→20:21)
[2020-01-25 11:57] LABS: Glucose Point of Care 166 mg/dL (70-110)
--- NOTE | 2020-01-25 14:45 | PM.PN ---
Subjective Subjective: Interval history: Patient remains afebrile and hemodynamically stable. Hemoglobin is stable at 8.3. Leukocytosis trending down from 14-12 today. Ceftriaxone was initiated yesterday. Blood pressure is significantly improved. Now attending between 1 10-1 50 systolic. Will resume her diuretics today. Though denies any complaints of chest pain or dyspnea, noted to be visibly tachypneic on exam today. Medications: Reviewed: Yes Vitals/I&O/Wt Last Vital Signs Temp 98.4 F 01/25/20 12:00 Pulse 84 01/25/20 12:00 Resp 16 01/25/20 12:00 BP 108/49 01/25/20 12:00 Pulse Ox 98 01/25/20 12:00 01/24/20 01/25/20 01/25/20 22:59 06:59 14:59 Intake Total 1360 / 2870 770 / 770 Output Total 150 / 875 150 / 1025 Balance 121 / 1995 -150 / 1845 770 / 770 Physical Exam Narrative: EXAM NARRATIVE: GEN: Awake, alert and oriented x2, chronically ill-appearing frail woman. CVS: S1S2 N RS: CTA B/L except crackles over RLL Abd: Soft, nt/nd , bs+ Urinary Catheter Management^: Graham: Cath Placed During This Visit: yes, but has since been removed by the nurse Reason for Continuing Indwelling Catheter: Decision to DC Catheter Urinary Catheter Date of Insertion: 01/23/20 Urinary Catheter Time of Insertion: 05:05 Date Urinary Catheter Removed: 01/24/20 Time Urinary Catheter Discontinued: 11:00 Data : 01/25/20 05:32 01/25/20 05:32 A&P Assessment and plan (1) GI bleed: - hemoglobin 10.3 >>8.4>>8.3 Colonoscopy from July 2019 had shown tubular adenoma on biopsy. No other source of bleeding had been identified in the past. -Fresh blood in stools currently suspicious of recurrent diverticular bleed. Currently patient has not had any recurrence of bleeding in the last 24 hours -Hemoglobin at 8.3, recheck with a.m. labs -Blood pressure much improved today. Now trending between 1 10-1 50 systolic. Patient noted to be fluid overloaded today, rales on exam. Stop IV fluids today as blood pressure much improved. Resume Lasix 40 mg p.o. which is her home dose. -Diet advanced to GI soft today, tolerated clear liquid yesterday. -Anticoagulation contraindicated given GI bleed, SCDs Status: Acute (2) Non-ST elevation [place] (NSTEMI): -Likely type II NSTEMI, supply demand ischemia from GI bleed -Baseline troponin 113 -No acute ST-T wave changes on EKG, serially negative delta's -No current complaint of chest pain Status: Acute (3) Hyperlipidemia: Status: Chronic (4) Hypertension: Status: Chronic (5) Mitral regurgitation: Last echocardiogram from 11/12/2019 with LV systolic function severely reduced with EF of 30 to 35%. Moderate global hypokinesis. Grade 3 diastolic dysfunction. Status: Acute (6) Anemia: Status: Acute (7) Liver cirrhosis: -Has a history of liver cirrhosis, has not had any outpatient work-up, was supposed to see GI for a liver biopsy -Her hepatitis panel was negative on last admission -CT scan of the abdomen pelvis during this admission shows cirrhosis with splenomegaly with trace ascites -Etiology of liver cirrhosis unclear at this point, denies alcohol use, denies drug abuse Status: Acute (8) Parkinsons disease: Status: Acute (9) Type 2 diabetes mellitus: Status: Acute (10) Systolic CHF: -Echocardiogram in October 2019 showed an EF of 30 to 35%, moderate global hypokinesia, grade 3 diastolic dysfunction, mild mitral regurg Discontinue IV fluids, resume 40 mg p.o. Lasix Status: Acute (11) NAGI (acute kidney injury): improving with hydration, Status: Acute (12) Hyperkalemia: Received insulin dextrose yesterday, this morning potassium normalized at 4.8. Likely to continue to improve with reinitiation of Lasix. Status: Acute Additional A&P Information Patient has had some significant deconditioning. She appears extremely frail and weak. Was evaluated by PT and OT services, long-term is recommended given her level of deconditioning. Her agrees with the same. He is very concerned that patient has been feeling weak over the past 3 to 4 months and has had a subacute decline overall. States that she mostly lays in the recliner all day and is to the point where she avoids walking to the bathroom also. He agrees that she will benefit from long-term. Placement at SNF is being arranged at this present time. Attestations Medical Necessity Statement*: Patient is improved since admission. No further episode of GI bleed. Medically appearing to be stable. However awaiting discharge to SNF. Coding Level of Care Code Acute Emergency Vehicle Technician for [facility] F[facility] Diagnoses GI bleed K92.2 Non-ST elevation [place] (NSTEMI) I21.4 Hyperlipidemia E78.5 Hypertension I10 Mitral regurgitation I34.0 Anemia D64.9 Liver cirrhosis K74.60 Parkinsons disease G20 Type 2 diabetes mellitus E11.9 Systolic CHF I50.20 NAGI (acute kidney injury) N17.9 Hyperkalemia E87.5
[2020-01-25 17:02] LABS: Glucose Point of Care 99 mg/dL (70-110)
--- NOTE | 2020-01-25 17:39 | PC.NURSE ---
pt has had no bowel movements today. pt has not complained of nausea or pain. pt is tolerating gi soft diet well. pt has been adjusted in her bed multiple times today per request. pt has asked several times when she can go home stating she is ready to go.
[2020-01-25 21:17] LABS: Glucose Point of Care 122 mg/dL (70-110)
[2020-01-26] VITALS: BP 130/62; PULSE 79; RESP 18; TEMP 37.1; O2SAT 94
[2020-01-26 04:00] VITALS: BP 128/60; PULSE 80; RESP 17; TEMP 36.9; O2SAT 99
[2020-01-26 04:35] LABS: Basophils # 0.1 10^3/uL (0.0-0.1); Basophils % 0.5 %; Eosinophils # 0.2 10^3/uL (0.0-0.8); Eosinophils % 1.9 %; Hematocrit 27.6 % (37.0-47.0); Hemoglobin 8.7 g/dL (11.5-15.3); Lymphocytes % 32.9 %; Mean Corpuscular HGB Conc 31.5 g/dL (30.0-36.0); Mean Corpuscular Hemoglobin 26.5 pg (28.0-34.0); Mean Corpuscular Volume 84.1 fL (81-99); Mean Platelet Volume 10.3 fL (7.4-10.4); Monocytes # 0.9 10^3/uL (0.2-0.9); Monocytes % 7.2 %; Neutrophils # 6.87 10^3/uL (1.8-7.7); Neutrophils % 57.2 %; Nucleated Red Blood Cells % 0 %; Platelet Count 364 10^3/cmm (130-400); Red Blood Count 3.28 10^6/uL (4.1-5.3); Red Cell Distribution Width 20.4 % (12.1-15.1)
[2020-01-26 04:57] LABS: Alanine Aminotransferase < 5 U/L (0-33); Albumin Level 2.6 g/dL (3.5-5.2); Alkaline Phosphatase 111 IU/L (35-105); Anion Gap 13.6 (5-19); Aspartate Amino Transferase 21 U/L (0-32); Blood Urea Nitrogen 62 mg/dL (8-23); Calcium 8.7 mg/dL (8.5-10.5); Carbon Dioxide 17 mmol/L (22-29); Chloride 109 mmol/L (98-107); Globulin 3.2 g/dL (1.3-4.6); Glucose 88 mg/dL (65-115); Magnesium 2.1 mg/dL (1.7-2.3); Osmolality Calculated 297 mOsm/kg (285-295); Phosphorus 3.1 mg/dL (2.5-4.5); Potassium 4.6 mmol/L (3.5-5.1); Sodium 135 mmol/L (136-145); Total Bilirubin 0.3 mg/dL (0.15-1.2); Total Protein 5.8 g/dL (6.6-8.7)
[2020-01-26 06:27] LABS: Glucose Point of Care 98 mg/dL (70-110)
[2020-01-26 07:35] VITALS: BP 117/55; PULSE 76; RESP 16; TEMP 36.9; O2SAT 97
[2020-01-26] MEDS: atorvastatin 40 mg Tablet PO (08:45)
[2020-01-26] MEDS: FUROsemide 40 mg Tablet PO (08:45)
[2020-01-26] MEDS: ferrous sulfate EC 325 mg Tablet PO (08:45)
[2020-01-26] MEDS: pantoprazole 40 mg SDV IVP (08:45)
[2020-01-26] MEDS: carbidopa-levodopa ER 50-200mg Tablet 1 EACH PO (08:46)
[2020-01-26] MEDS: cefTRIAXone 1,000 MG in sodium chloride 0.9% (plus) 50 ML 100 MG IV (09:40)
--- NOTE | 2020-01-26 11:30 | PM.DCS ---
Discharge Providers Date of Admission: 01/23/20 05:47 Date of Discharge: January 26, 2020 Attending Provider at Admission: Gordon Murillo MD Attending Provider at Discharge: Reva Ng MD Primary Care Provider: Marcelina Yan Diagnoses at Discharge Discharge Diagnosis (1) GI bleed: Status: Acute (2) Hyperlipidemia: Status: Chronic (3) Hypertension: Status: Chronic (4) Mitral regurgitation: Status: Acute Permanent problem details: Last echocardiogram (5) Anemia: Status: Acute (6) Liver cirrhosis: Status: Acute (7) Parkinsons disease: Status: Acute (8) Type 2 diabetes mellitus: Status: Acute (9) Systolic CHF: Status: Acute (10) NAGI (acute kidney injury): Status: Acute (11) Hyperkalemia: Status: Acute Reason for Visit Reason for Visit: gi bleed Hospital Course Discharge Summary: Chelsi Berger is a 79 year old female with a past medical history of insulin-dependent type 2 diabetes mellitus, chronic kidney disease stage III, CAD status post stenting x1, mixed systolic and diastolic heart failure, last ejection fraction 30 to 35%, moderate global hypokinesia, chronic anemia, diastolic heart failure, restless leg syndrome, hyperlipidemia, hypertension, moderate pulmonary hypertension, moderate to severe mitral regurg who presents to [facility] due to complaints of bloody bowel movement. Hospital course as below: (1) GI bleed: - hemoglobin 10.3 >>8.4>>8.3 Colonoscopy from July 2019 had shown tubular adenoma on biopsy. No other source of bleeding had been identified in the past. -Fresh blood in stools suspicious of recurrent diverticular bleed. Bleeding eventually resolved spontaenously. No bloody BM in the last 48 hrs . Hb remains stable -Blood pressure much improved from being hypotensive on admission, now trending between 1 10-1 50 systolic. -tolerating GI soft diet at discharge 2. elevated troponins, likely supply demand ischemia from GI bleed -Baseline troponin 113 -No acute ST-T wave changes on EKG, serially negative delta's -No current complaint of chest pain 3. Anemia:Hb stable, on iron supplementation (4) Liver cirrhosis: -Has a history of liver cirrhosis, has not had any outpatient work-up, was supposed to see GI for a liver biopsy -Her hepatitis panel was negative on last admission -CT scan of the abdomen pelvis during this admission shows cirrhosis with splenomegaly with trace ascites -Etiology of liver cirrhosis unclear at this point, denies alcohol use, denies drug abuse. encourage outapteint follow up (5) Parkinsons disease: Home meds continued (6) Type 2 diabetes mellitus: Patient was hypoglycemis initially during course of admission. Did not require any insulin during admission course. It appears that she has additionally not filled her insulin since June of this year. Blood sugar ranging between 99-1 20 upon discharge. It has been discontinued from her home meds. Encourage follow-up with primary care provider. (7) Systolic CHF: -Echocardiogram in October 2019 showed an EF of 30 to 35%, moderate global hypokinesia, grade 3 diastolic dysfunction, mild mitral regurg. Coreg has been reduced to 3.125mg upon discharge due to hypotension. spirinolactone discontinued due to hyperkalemia and hypotension (8) NAGI (acute kidney injury): improving with hydration, 3.1 --> 2.1 upon discharge (12) Hyperkalemia: Received insulin dextrose x1, improved subsequently.Level 4.6 at discharge Due to significant deconditioning, placement at SNF was highly recommended, was agreeable but patient eventually refused and elected to return home. Physical Exam Narrative: EXAM NARRATIVE: GEN: Awake, alert and oriented x2, chronically ill-appearing frail woman,multiple petechaie over body CVS: S1S2 N RS: CTA B/L except crackles over RLL Abd: Soft, nt/nd , bs+ Urinary Catheter Management^: Graham: Cath Placed During This Visit: yes, but has since been removed by the nurse Reason for Continuing Indwelling Catheter: Decision to DC Catheter Urinary Catheter Date of Insertion: 01/23/20 Urinary Catheter Time of Insertion: 05:05 Date Urinary Catheter Removed: 01/24/20 Time Urinary Catheter Discontinued: 11:00 Discharge Data Data Completed and Pending: Completed Studies During Hospitalization Category Date Time Status CT abdomen pelvis wo con [id number] Stat Cat Scan 01/23/20 03:58 Completed XR chest 1V anyi ble [id number] Stat Exams 01/23/20 03:58 Completed US liver [id number] Ro utine Ultrasound 01/23/20 07:22 Completed Pending at discharge Category Date Time Status Hemoglobin A1C Ro utine Lab 01/26/20 11:20 Ordered Leukocyte Reduced RBC Stat Lab 01/23/20 03:59 Results Type and Screen S tat Lab 01/23/20 03:59 Results Labs from last 24 hours 01/26/20 01/26/20 01/26/20 06:23 03:40 03:40 WBC 12.0 H RBC 3.28 L Hgb 8.7 L Hct 27.6 L MCV 84.1 MCH 26.5 L MCHC 31.5 RDW 20.4 H Plt Count 364 MPV 10.3 Neut % (Auto) 57.2 Lymph % (Auto) 32.9 [place] % (Auto) 7.2 Eos % (Auto) 1.9 Baso % (Auto) 0.5 Neut # (Auto) 6.87 Lymph # (Auto) 4.0 [place] # (Auto) 0.9 Eos # (Auto) 0.2 Baso # (Auto) 0.1 Nucleated RBC % (a uto) 0 Nucleated RBCs # 0.0 Sodium 135 L Potassium 4.6 Chloride 109 H Carbon Dioxide 17 L Anion Gap 13.6 BUN 62 H Creatinine 2.1 H GFR Calculation Not Reportable Glucose 88 POC Glucose 98 Calculated Osmolal ity 297 H Calcium 8.7 Phosphorus 3.1 Magnesium 2.1 Total Bilirubin 0.3 AST 21 ALT < 5 Alkaline Phosphata se 111 H Total Protein 5.8 L Albumin 2.6 L Globulin 3.2 01/25/20 01/25/20 01/25/20 21:13 16:35 11:42 WBC RBC Hgb Hct MCV MCH MCHC RDW Plt Count MPV Neut % (Auto) Lymph % (Auto) [place] % (Auto) Eos % (Auto) Baso % (Auto) Neut # (Auto) Lymph # (Auto) [place] # (Auto) Eos # (Auto) Baso # (Auto) Nucleated RBC % (a uto) Nucleated RBCs # Sodium Potassium Chloride Carbon Dioxide Anion Gap BUN Creatinine GFR Calculation Glucose POC Glucose 122 99 166 Calculated Osmolal ity Calcium Phosphorus Magnesium Total Bilirubin AST ALT Alkaline Phosphata se Total Protein Albumin Globulin Vitals: Last Vital Signs Temp 98.4 F 01/26/20 07:35 Pulse 76 01/26/20 07:35 Resp 16 01/26/20 07:35 BP 117/55 01/26/20 07:35 Pulse Ox 97 01/26/20 07:35 Discharge Plan Discharge Patient Disposition: Home Health Service Condition: Stable Prescriptions: Continued mag oxide 400 mg PO DAILY RF: 0 atorvastatin [Lipitor] 40 mg Tablet 40 mg PO DAILY RF: 0 acetaminophen [Tylenol] 325 mg Tablet 325 mg PO PRN PRN (Reason: Pain) RF: 0 ropinirole 1 mg Tablet 1 mg PO DAILY RF: 0 carbidopa-levodopa [Sinemet CR] 50-200 mg Tablet Extended Release 1 tab PO TID RF: 0 entacapone 200 mg Tablet 200 mg PO TID RF: 0 Multi For Her 18 mg iron-600 mcg-40 mcg Capsule 1 tab-cap PO DAILY RF: 0 ferrous sulfate 325 mg (65 mg iron) tablet,delayed release (DR/EC) 325 mg PO BID Qty: 60 RF: 0 Ativan 0.5 mg Tablet 0.5 mg PO BEDTIME RF: 0 iron 325 mg (65 mg iron) Tablet 650 mg PO BID RF: 0 Lexapro 10 mg Tablet 10 mg PO DAILY RF: 0 trazodone 50 mg Tablet 50 mg PO BEDTIME RF: 0 Changed Coreg 6.25 mg Tablet 3.125 mg PO BID Qty: 0 RF: 0 tramadol 50 mg tablet 50 mg PO BID PRN (Reason: Pain) Qty: 0 RF: 0 Held spironolactone 50 mg Tablet 50 mg PO DAILY RF: 0 Hold Instructions: Resume on 02/10/20. please see your PCP regarding resuming this medication Discontinued insulin aspart U-100 [Novolog U-100 Insulin aspart] 100 unit/mL Solution See Rx Instructions .ROUTE .COMPLEX RF: 0 melatonin 10 mg Tablet 30 mg PO BEDTIME RF: 0 Tresiba FlexTouch U-100 100 unit/mL (3 mL) Insulin Pen 10 unit SUBCUT BEDTIME RF: 0 Discharge Orders: Discharge Order (Routine); Ordered 01/26/20 Ordered By: Reva Ng Referrals: [facility] [Outside] Marcelina Yan PA [Primary Care Provider] - 4-7 days (hospital discharge follow up Please call Celio Ortega and make a 4-7 day appointment with Marcelina Yan. [phone]) Discharge Diet: GI Soft Discharge Activity: As per PT/OT instructions Patient Instructions: Iron Supplements (By mouth), Carbidopa/Levodopa (By mouth), Furosemide (By mouth), Lorazepam (By mouth), Trazodone (By mouth), Multivitamins, Adult Formula (By mouth), Ropinirole (By mouth), Entacapone (By mouth), Pantoprazole (By mouth), Escitalopram (By mouth), Magnesium Oxide (By mouth), GI Bleeding, Acute Kidney Injury (DC) Discharge Date/Time: 01/26/20 13:24 Discharge Attestations Time Spent in Discharge Care*: greater than 30 min Specific Discharge Activities: Specific discharge activities: educating and/or supporting family/caregiver, documenting/other paperwork and evaluating patient/reviewing data Quality Metrics Clinical Quality Measures During this hospital stay, did patient experience: None Coding Level of Care Code Acute Subway Repair Supervisor for [facility] [facility] Diagnoses GI bleed K92.2 Hyperlipidemia E78.5 Hypertension I10 Mitral regurgitation I34.0 Anemia D64.9 Liver cirrhosis K74.60 Parkinsons disease G20 Type 2 diabetes mellitus E11.9 Systolic CHF I50.20 NAGI (acute kidney injury) N17.9 Hyperkalemia E87.5
[2020-01-26 11:38] VITALS: BP 112/63; PULSE 77; RESP 18; TEMP 36.7; O2SAT 97
[2020-01-26 11:40] LABS: Glucose Point of Care 114 mg/dL (70-110)
--- NOTE | 2020-01-26 12:56 | DCPLANNER ---
Pg 2 of IM updated and reviewed with Pt's Spouse via the phone. No questions, he comments that when says she's ready; she is. Copy left at bedside.
--- NOTE | 2020-01-26 13:23 | PC.NURSE ---
pt iv's taken out and both intact. pt discharge instructions explained. pt taken to er entrance via wheelchair.
[2020-01-26 13:24] VITALS: BP 112/63; PULSE 77; RESP 18; TEMP 36.7; O2SAT 97
[2020-01-26 16:56] LABS: Estmated Average Glucose 97
== END 2020-01-26 13:24 | disposition home health service (06) | DRG 377 ==
LOC: ER 05:50 → ICU 06:13 → MEDSURG 01-24 11:08
PROVIDERS: Emergency Medicine; Admitting Provider Family Medicine; PCP Physician Assistant; Visit Provider Student in an Organized Health Care Education/Training Program
DX: K92.2 Gastrointestinal hemorrhage, unspecified (principal); I21.A1 Myocardial infarction type 2; I13.0 Hypertensive heart and chronic kidney disease with heart failure and stage 1 through stage 4 chronic kidney disease, or unspecified chronic kidney disease; I50.40 Unspecified combined systolic (congestive) and diastolic (congestive) heart failure; N17.9 Acute kidney failure, unspecified; E11.22 Type 2 diabetes mellitus with diabetic chronic kidney disease; N18.30 Chronic kidney disease, stage 3 unspecified; E11.649 Type 2 diabetes mellitus with hypoglycemia without coma; Z79.4 Long term (current) use of insulin; I25.10 Atherosclerotic heart disease of native coronary artery without angina pectoris; Z95.5 Presence of coronary angioplasty implant and graft; D63.1 Anemia in chronic kidney disease; G25.81 Restless legs syndrome; E78.5 Hyperlipidemia, unspecified; I27.20 Pulmonary hypertension, unspecified; I34.0 Nonrheumatic mitral (valve) insufficiency; I95.9 Hypotension, unspecified; K74.60 Unspecified cirrhosis of liver; G20 Parkinson's disease; E87.5 Hyperkalemia
CPT/HCPCS: 12345; 36415; 36416; 51702; 71045; 74176; 76705; 80053; 81001; 82962; 83036; 83605; 83735; 84100; 84484; 85014; 85018; 85025; 85610; 85730; 86850; 86900; 86920; 93005; 94664; 96372; 96375; 97116; 97161; 97167; 99283; C9113; J0696; J1815; J2405; J2543; J7030; J7799; P9047

== ENCOUNTER 2020-02-02 17:27 | Inpatient (IN) | payer MEDICARE, MEDICAID, SELFPAY ==
[2020-02-02] VITALS (20 sets, daily range): BP systolic 113–136; BP diastolic 52–75; PULSE 63–71; RESP 9–18; TEMP 36.3–36.6; O2SAT 97–100; BMI 17.5
--- NOTE | 2020-02-02 17:35 | ECG_ITS ---
[facility] [facility] Date: 2020-02-02 Pat Name: Chelsi Berger Department: Room: Gender: Female Staff Psychiatrist: : 1940 Requested By: Rossana Gutierrez Order Number: [id number] Kt MD: Annie Batista M.D. Measurements Intervals [place] Rate: 66 P: -11 MT: 141 QRS: 39 QRSD: 106 T: 13 QT: 411 QTc: 434 Interpretive Statements SINUS RHYTHM Compared to ECG 01/23/2020 10:22:33 Intraventricular conduction delay no longer present Electronically Signed On 02-02-2020 21:15:44 COLORIST by Annie Batista M.D. [id number]
--- NOTE | 2020-02-02 17:35 | XRR_ITS ---
PROCEDURE INFORMATION: Exam: XR Chest, 1 View Exam date and time: 02/02/2020 6:01 PM Age: 79 years old Clinical indication: Patient HX: PT had a gi bleed >1 month ago, syncope risk; Additional info: Near syncope TECHNIQUE: Imaging protocol: XR of the chest Views: 1 view. COMPARISON: CR XR chest 1V portable [id number] 01/23/2020 4:23 AM FINDINGS: Lungs: There is a calcified granuloma in the left upper lobe. No focal infiltrate is identified. Pleural space: Unremarkable. No pleural effusion. No pneumothorax. Heart/Mediastinum: Heart is within normal limits of size. Bones/joints: Unremarkable. XR/XR chest 1V portable [id number] IMPRESSION: No acute infiltrates. No significant change from 01/23/2020.
--- NOTE | 2020-02-02 17:58 | W.ED.GIBLEED ---
HPI - GI Bleed General: Chief complaint: GI Bleed Stated complaint: GI BLEED Time Seen by Provider: 02/02/20 17:44 History of Present Illness: HPI Narrative: 79-year-old female with a history of GI bleeding. She was hospitalized 10 days or so ago. She was released a week ago. GI bleeding had stopped on its own. She presents with an episode of dark stool followed by a syncopal episode. She states that she did not hit her head. She had multiple skin tears to bilateral forearms. She says her belly is not overly tender. complaint: melena Onset (ago): hour(s) Pain Consistency: other Context: history of GI bleed Associated symptoms: Reports nausea and syncope; Denies abdominal pain, fever(s), headache(s), rash or vomiting Review of Systems Const: Denies: fever(s) Eyes: Denies: change in vision ENMT: Denies: swelling of lips/tongue or sinus pain Card: Reports: syncope Resp: Denies: dyspnea or wheezing GI: Reports: nausea; Denies: abdominal pain or vomiting : Denies: dysuria or hematuria Musc: Denies: back pain Skin/Breast: Denies: rash or erythema Neuro: Denies: headache(s) Psych: Denies: anxiety PFSH ED PFSH: Medical History (Updated 02/03/20 @ 00:25 by Anderson Espinoza DO) Anemia Chronic kidney disease, stage III (moderate) Coronary artery disease Diastolic heart failure Diverticulosis Hyperlipidemia Hypertension Liver cirrhosis Lower GI bleed Moderate to severe pulmonary hypertension Oxygen dependent 2L per [place] Parkinsons disease Tubular adenoma Type 2 diabetes mellitus Surgical History History of coronary artery stent placement 2006 History of tonsillectomy and adenoidectomy Hx of appendectomy Hx of cholecystectomy Hx of hysterectomy Family History Mother CAD (coronary artery disease) Myocardial infarction Diabetes Hypertension Social History (Updated 02/02/20 @ 20:49 by Marko Jose MD) Smoking and tobacco status: never smoked Alcohol intake: never Substance/Drug Use: never Household members: family Housing: House Physical Exam Const: GENERAL APPEARANCE: well developed ORIENTATION/CONSCIOUSNESS: Yes oriented to person and Yes oriented to place HENMT: COMMON NORMALS: normocephalic, external ears normal and Normal external nose present HEAD & SCALP: normocephalic FACE & SINUS: normal facial exam NOSE: Normal external nose present and No nasal discharge present EXTERNAL EAR: Yes external ears normal THROAT: posterior oropharynx normal; no peritonsillar mass Eye: COMMON NORMALS: Equal, round and reactive pupils present, EOMs intact bilaterally and conjunctivae normal EYELID: eyelids normal CONJUNCTIVA: Yes conjunctivae normal PUPIL: Yes Equal, round and reactive pupils present Neck/C-Spine: GENERAL: No tracheal deviation Chest: COMMONS NORMALS: normal inspection of the chest CHEST: No tenderness Resp: COMMON NORMALS: clear to auscultation bilaterally EFFORT & INSPECTION: No tachypneic, No respiratory distress, No retractions, No uses accessory muscles and No tracheal deviation AUSCULTATION: clear to auscultation bilaterally, no rhonchi, no wheezes and lung sounds not diminished Cardio: COMMON NORMALS: regular rate and regular rhythm RATE: regular rate RHYTHM: regular rhythm HEART SOUNDS: no murmurs PERIPHERAL PULSES: radial pulses present GI: INSPECTION: No abdominal distension AUSCULTATION: No Hyperactive bowel sounds present and No Hypoactive bowel sounds present PALPATION: Yes Tenderness to palpation present (GI) (diffuse), No Guarding due to palpation present (GI) and No Rigid due to palpation PERCUSSION: no dullness to percussion and tympanic to percussion Neuro: SENSORIUM/ORIENTATION: Yes oriented to person and Yes oriented to place Psych: COMMON NORMALS: mental status grossly normal Skin: NARRATIVE SKIN EXAM: Skin tears to the bilateral forearms. Bleeding is controlled. They are dressed. Course Consultations: Consultation #1: [email or web address] Time: 19:48 Vital Signs: Vital signs: Vital Signs Temperature 97.6 F 02/02/20 23:09 Pulse Rate 65 02/03/20 00:00 Respiratory Rate 9 L 02/03/20 00:00 Blood Pressure 115/60 02/03/20 00:00 Pulse Oximetry 98 02/02/20 23:01 MDM - GI Bleed MDM Narrative: Medical decision making narrative: 79-year-old female with a history of GI bleeding. She presents after syncopal episode with melena. Her initial pressure was low, but has been stable since here. Currently 119/61. Heart rate is normal. Saturations are good. Her hemoglobin is stable at 8.3. Because of the hypotension, and continued bleeding, she is crossed for 2 units of blood. She has continued to pass melanotic stool here. Her creatinine is at baseline at 2. She will come in for the transfusion. Hospitalist notified Lab Data: Labs: Lab Results 02/02/20 02/02/20 02/02/20 Range/Units 18:00 18:00 18:00 WBC 9.2 (4.0-10.0) 10^3/ uL RBC 3.09 L (4.1-5.3) 10^6/u L Hgb 8.3 L (11.5-15.3) g/dL Hct 27.2 L (37.0-47.0) % MCV 88.0 (81-99) fL MCH 26.9 L (28.0-34.0) pg MCHC 30.5 (30.0-36.0) g/dL RDW 20.7 H (12.1-15.1) % Plt Count 389 (130-400) 10^3/c mm MPV 10.2 (7.4-10.4) fL Neut % (Auto) 60.4 % Lymph % (Auto) 30.8 % Emmons % (Auto) 6.4 % Eos % (Auto) 1.8 % Baso % (Auto) 0.4 % Neut # (Auto) 5.55 (1.8-7.7) 10^3/u L Lymph # (Auto) 2.8 (0.8-4.8) 10^3/u L Emmons # (Auto) 0.6 (0.2-0.9) 10^3/u L Eos # (Auto) 0.2 (0.0-0.8) 10^3/u L Baso # (Auto) 0.0 (0.0-0.1) 10^3/u L Nucleated RBC % (a uto) 0 % Nucleated RBCs # 0.0 /100WBC PT 15.00 H (12.1-14.9) SECO NDS INR 1.14 (0.8-1.2) D-Dimer (0-0.59) ug/mIFE U Sodium (136-145) mmol/L Potassium (3.5-5.1) mmol/L Chloride (98-107) mmol/L Carbon Dioxide (22-29) mmol/L Anion Gap (5-19) BUN (8-23) mg/dL Creatinine (0.5-0.9) mg/dL GFR Calculation Glucose (65-115) mg/dL Estimat Average Gl ucose Hemoglobin A1c (4.0-6.0) % Calculated Osmolal ity (285-295) mOsm/k g Lactic Acid (0.5-2.2) mmol/L Calcium (8.5-10.5) mg/dL Total Bilirubin (0.15-1.2) mg/dL AST (0-32) U/L ALT (0-33) U/L Alkaline Phosphata se (35-105) IU/L Troponin T Gen 5 n g/L (0-10) ng/L Total Protein (6.6-8.7) g/dL Albumin (3.5-5.2) g/dL Globulin (1.3-4.6) g/dL Lipase (13-60) U/L Blood Type A Positive Rho(D) Type Positive Antibody Screen Negative Crossmatch See Detail 02/02/20 02/02/20 02/02/20 Range/Units 18:00 18:00 18:00 WBC (4.0-10.0) 10^3/ uL RBC (4.1-5.3) 10^6/u L Hgb (11.5-15.3) g/dL Hct (37.0-47.0) % MCV (81-99) fL MCH (28.0-34.0) pg MCHC (30.0-36.0) g/dL RDW (12.1-15.1) % Plt Count (130-400) 10^3/c mm MPV (7.4-10.4) fL Neut % (Auto) % Lymph % (Auto) % Emmons % (Auto) % Eos % (Auto) % Baso % (Auto) % Neut # (Auto) (1.8-7.7) 10^3/u L Lymph # (Auto) (0.8-4.8) 10^3/u L Emmons # (Auto) (0.2-0.9) 10^3/u L Eos # (Auto) (0.0-0.8) 10^3/u L Baso # (Auto) (0.0-0.1) 10^3/u L Nucleated RBC % (a uto) % Nucleated RBCs # /100WBC PT (12.1-14.9) SECO NDS INR (0.8-1.2) D-Dimer (0-0.59) ug/mIFE U Sodium 136 (136-145) mmol/L Potassium 5.0 (3.5-5.1) mmol/L Chloride 108 H (98-107) mmol/L Carbon Dioxide 17 L (22-29) mmol/L Anion Gap 16.0 (5-19) BUN 81 H (8-23) mg/dL Creatinine 2.0 H (0.5-0.9) mg/dL GFR Calculation Not Reportable Glucose 154 H (65-115) mg/dL Estimat Average Gl ucose Hemoglobin A1c (4.0-6.0) % Calculated Osmolal ity 309 H (285-295) mOsm/k g Lactic Acid 1.6 (0.5-2.2) mmol/L Calcium 9.7 (8.5-10.5) mg/dL Total Bilirubin 0.3 (0.15-1.2) mg/dL AST 21 (0-32) U/L ALT < 5 (0-33) U/L Alkaline Phosphata se 124 H (35-105) IU/L Troponin T Gen 5 n g/L 98 H (0-10) ng/L Total Protein 6.5 L (6.6-8.7) g/dL Albumin 3.0 L (3.5-5.2) g/dL Globulin 3.5 (1.3-4.6) g/dL Lipase 97 H (13-60) U/L Blood Type Rho(D) Type Antibody Screen Crossmatch 02/02/20 02/02/20 Range/Units 18:00 18:00 WBC (4.0-10.0) 10^3/ uL RBC (4.1-5.3) 10^6/u L Hgb (11.5-15.3) g/dL Hct (37.0-47.0) % MCV (81-99) fL MCH (28.0-34.0) pg MCHC (30.0-36.0) g/dL RDW (12.1-15.1) % Plt Count (130-400) 10^3/c mm MPV (7.4-10.4) fL Neut % (Auto) % Lymph % (Auto) % Emmons % (Auto) % Eos % (Auto) % Baso % (Auto) % Neut # (Auto) (1.8-7.7) 10^3/u L Lymph # (Auto) (0.8-4.8) 10^3/u L Emmons # (Auto) (0.2-0.9) 10^3/u L Eos # (Auto) (0.0-0.8) 10^3/u L Baso # (Auto) (0.0-0.1) 10^3/u L Nucleated RBC % (a uto) % Nucleated RBCs # /100WBC PT (12.1-14.9) SECO NDS INR (0.8-1.2) D-Dimer 6.34 H (0-0.59) ug/mIFE U Sodium (136-145) mmol/L Potassium (3.5-5.1) mmol/L Chloride (98-107) mmol/L Carbon Dioxide (22-29) mmol/L Anion Gap (5-19) BUN (8-23) mg/dL Creatinine (0.5-0.9) mg/dL GFR Calculation Glucose (65-115) mg/dL Estimat Average Gl ucose 94 Hemoglobin A1c 4.9 (4.0-6.0) % Calculated Osmolal ity (285-295) mOsm/k g Lactic Acid (0.5-2.2) mmol/L Calcium (8.5-10.5) mg/dL Total Bilirubin (0.15-1.2) mg/dL AST (0-32) U/L ALT (0-33) U/L Alkaline Phosphata se (35-105) IU/L Troponin T Gen 5 n g/L (0-10) ng/L Total Protein (6.6-8.7) g/dL Albumin (3.5-5.2) g/dL Globulin (1.3-4.6) g/dL Lipase (13-60) U/L Blood Type Rho(D) Type Antibody Screen Crossmatch Discharge Plan Discharge Patient Disposition: Home Clinical Impression: Blood loss anemia GI bleed Qualifiers: GI bleed type/associated pathology: melena Qualified Code(s): K92.1 - Melena Condition: Stable Coding Level of Care Code ED Telephone Clerk [employer] for g Fwd Exam Comprehensive
[2020-02-02 18:14] LABS: Basophils % 0.4 %; Eosinophils # 0.2 10^3/uL (0.0-0.8); Eosinophils % 1.8 %; Hematocrit 27.2 % (37.0-47.0); Hemoglobin 8.3 g/dL (11.5-15.3); Lymphocytes # 2.8 10^3/uL (0.8-4.8); Lymphocytes % 30.8 %; Mean Corpuscular HGB Conc 30.5 g/dL (30.0-36.0); Mean Corpuscular Hemoglobin 26.9 pg (28.0-34.0); Mean Platelet Volume 10.2 fL (7.4-10.4); Monocytes # 0.6 10^3/uL (0.2-0.9); Monocytes % 6.4 %; Neutrophils # 5.55 10^3/uL (1.8-7.7); Neutrophils % 60.4 %; Nucleated Red Blood Cells % 0 %; Platelet Count 389 10^3/cmm (130-400); Red Blood Count 3.09 10^6/uL (4.1-5.3); Red Cell Distribution Width 20.7 % (12.1-15.1); White Blood Count 9.2 10^3/uL (4.0-10.0)
[2020-02-02 18:28] LABS: INR 1.14 (0.8-1.2)
[2020-02-02] MEDS: pantoprazole 40 mg SDV 80 MG IVP (18:39)
[2020-02-02 18:40] LABS: Alanine Aminotransferase < 5 U/L (0-33); Alkaline Phosphatase 124 IU/L (35-105); Aspartate Amino Transferase 21 U/L (0-32); Calcium 9.7 mg/dL (8.5-10.5); Carbon Dioxide 17 mmol/L (22-29); Chloride 108 mmol/L (98-107); Globulin 3.5 g/dL (1.3-4.6); Glucose 154 mg/dL (65-115); Lipase 97 U/L (13-60); Osmolality Calculated 309 mOsm/kg (285-295); Sodium 136 mmol/L (136-145); Total Bilirubin 0.3 mg/dL (0.15-1.2); Total Protein 6.5 g/dL (6.6-8.7)
[2020-02-02 18:41] LABS: Blood Urea Nitrogen 81 mg/dL (8-23); Lactic Sepsis W/Reflex 1.6 mmol/L (0.5-2.2)
--- NOTE | 2020-02-02 19:46 | PM.HP ---
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 Of note, colonoscopy from July 2019 showed tubular adenoma on biopsy, no other source of bleeding was identified, her anemia and active hematochezia was attributed to diverticular bleed, she did not require any blood transfusion. Patient refused SNF placement and was discharged home. Liver ultrasound revealed liver cirrhosis. Pt is not sure about the etiology of liver cirrhosis. Patient is stating that she has been experiencing mild abdominal pain which she is describing as her abdomen is sensitive, she has been noticing loose stools, dark color, she has not noticed fresh bleed per rectum, no nausea, vomiting, she is denying use of aspirin or anticoagulant agents, no work-up has been done for liver cirrhosis in the past, no previous EGD, she only has had colonoscopy so far. Patient is denying syncopal event, chest pain, she is endorsing her fall to feeling extremely weak and lethargic. Diagnostics in the ER revealed normal hemodynamics, she is not tachycardic, heart rate is in 70s, systolic blood pressure 120s, afebrile, hemoglobin 8.3, we were not able to get CT abdomen with contrast because of high creatinine, high D-dimer, she is not hypoxic, lactic acid 1.6, albumin 3, PT 15, patient is awake alert oriented x3 GCS 15, her undergarments were covered with dark-colored stools She has multiple abrasions all over her extremities. Review of Systems Const: Reports: chills, body aches, change in appetite, fatigue and malaise; Denies: fever(s) Eyes: Denies: change in vision ENMT: Denies: throat pain Card: Denies: chest pain Resp: Denies: dyspnea GI: Reports: abdominal pain, diarrhea and melena; Denies: nausea, vomiting or hematochezia : Denies: flank pain Musc: Denies: neck pain Skin/Breast: Reports: skin tenderness, new lesions and lesions Neuro: Denies: headache(s) Psych: Denies: anxiety Endo: Denies: polyuria Rashard/Lymph: Reports: easy bruising, easy bleeding and petechiae All/Imm: Denies: urticaria Medications/Allergies Home Medications Medication Instructions Recorded Confirmed Last Taken Type Multi For Her 1 tab-cap PO DAILY 03/19/19 02/02/20 02/02/20 History carbidopa-levodopa [Sinemet CR] 1 tab PO TID 03/19/19 02/02/20 02/02/20 History entacapone 200 mg PO TID 03/19/19 02/02/20 02/02/20 History ropinirole 1 mg PO DAILY 03/19/19 02/02/20 02/02/20 History trazodone 50 mg PO BEDTIME 07/29/19 02/02/20 02/01/20 History escitalopram oxalate [Lexapro] 10 mg PO DAILY 01/23/20 02/02/20 02/02/20 History carvedilol [Coreg] 3.125 mg PO BID #0 tab 01/26/20 02/02/20 02/02/20 Rx Vitamin D3 1 tab PO DAILY 02/02/20 02/02/20 02/02/20 History lorazepam 0.5 mg PO BEDTIME 02/02/20 02/02/20 02/01/20 History pantoprazole 40 mg PO DAILY 02/02/20 02/02/20 02/02/20 History Allergies Allergy/AdvReac Type Severity Reaction Status Date / Time aspirin Allergy Unknown Verified 03/19/19 18:10 PFSH Acute PFSH: Medical History (Updated 02/02/20 @ 20:52 by Marko Jose MD) Anemia Chronic kidney disease, stage III (moderate) Coronary artery disease Diastolic heart failure Diverticulosis Hyperlipidemia Hypertension Liver cirrhosis Lower GI bleed Moderate to severe pulmonary hypertension Oxygen dependent 2L per [place] Parkinsons disease Tubular adenoma Type 2 diabetes mellitus Surgical History History of coronary artery stent placement 2006 History of tonsillectomy and adenoidectomy Hx of appendectomy Hx of cholecystectomy Hx of hysterectomy Family History Mother CAD (coronary artery disease) Myocardial infarction Diabetes Hypertension Social History (Updated 02/02/20 @ 20:49 by Marko Jose MD) Smoking and tobacco status: never smoked Alcohol intake: never Substance/Drug Use: never Household members: family Housing: House Vitals/I&O/Wt Last Vital Signs Temp 97.6 F 02/02/20 19:44 Pulse 63 02/02/20 19:44 Resp 17 02/02/20 19:44 BP 124/57 02/02/20 19:44 Pulse Ox 100 02/02/20 19:42 02/02/20 02/02/20 02/02/20 06:59 14:59 22:59 Intake Total 0 / 0 Balance 0 / 0 Weight last 48 hrs Weight 43.545 kg Physical Exam Narrative: EXAM NARRATIVE: Frail elderly female currently seems to be in distress because of soiled undergarments Her undergarments and back is covered with dark-colored stool She is not complaining of active chest pain No active respiratory distress Hemodynamically stable no tachycardia Abdomen mild tenderness on deep palpation, hyperactive bowel sounds, Multiple abrasions and lacerations with petechial of extremities which patient is attributing to her fall EOMI, PERRLA She is awake alert oriented x3 able to tell me above-mentioned HPI Low extremity pain, no edema, multiple abrasions No active tremors Clinically looks dehydrated and lethargic Data : 02/02/20 18:00 02/02/20 18:00 A&P Assessment and plan (1) Black tarry stools: Status: Acute (2) Normocytic anemia: Status: Acute (3) Blood loss anemia: Status: Acute (4) Liver cirrhosis: Status: Acute Additional A&P Information Acute on chronic blood loss anemia Active bleeding, black tarry stool With history of liver cirrhosis, no work-up has been done, patient denies previous history of EGDs or variceal bleed, not on aspirin or anticoagulant agents N.p.o. Protonix 40 IV twice daily She is hemodynamically stable, will transfuse with 2 units because of active bleeding Dr. Keane has been notified We will keep her on D5 half-normal saline after blood transfusion with close monitoring for fluid overload exacerbation Previous history of colonoscopy the concern for diverticular bleed, I do not have records for colonoscopy. Extreme lethargy due to anemia Patient sustained a fall at home, she has multiple abrasions all over her extremities She is awake alert oriented x3 no neurological deficit, obtain CT head without contrast Patient is a 9 syncopal event, check D-dimer, EKG is not showing any ischemic or infarctive changes, check baseline troponin History of ischemic cardiomyopathy No acute exacerbation History of type 2 diabetes Patient was hypoglycemic on previous admission, her insulin was discontinued, I will keep her on sliding scale for now along D5 half-normal saline maintenance fluid Check A1c level Parkinson's disease No active decompensation, Patient was recommended skilled nursing placement which she refused Considering active deconditioning she would definitely benefit from skilled nursing placement Full code N.p.o. DVT prophylaxis contraindicated, use SCDs Attestations Medical Necessity Statement*: I am anticipating she might be discharged in less than 48 hours need EGD for upper GI bleed currently getting blood transfusion Time Spent in Patient Care: (>than 50% of time spent in counselling and/or direct pt care on unit). 50mins Coding Level of Care Code Acute Wafer Fabricator for Chg Fwd Diagnoses Black tarry stools K92.1 Normocytic anemia D64.9 Blood loss anemia D50.0 Liver cirrhosis K74.60
[2020-02-02 20:27] LABS: D Dimer 6.34 ug/mIFEU (0-0.59)
[2020-02-02 20:44] LABS: Estmated Average Glucose 94; Hemoglobin A1C 4.9 % (4.0-6.0)
[2020-02-02 20:46] LABS: Troponin T (5th) Once 98 ng/L (0-10)
--- NOTE | 2020-02-02 21:00 | CTR_ITS ---
PROCEDURE INFORMATION: Exam: CT Abdomen And Pelvis Without Contrast Exam date and time: 02/02/2020 9:05 PM Age: 79 years old Clinical indication: Prior surgery; Surgery date: 6+ months; Surgery type: Gb, hyst, appy; Patient HX: C/O loose, dark stool w HX of ckd 3, cirrhosis, dm2; Additional info: Ugib TECHNIQUE: Imaging protocol: Computed tomography of the abdomen and pelvis without contrast. Radiation optimization: All CT scans at this facility use at least one of these dose optimization techniques: automated exposure control; mA and/or kV adjustment per patient size (includes targeted exams where dose is matched to clinical indication); or iterative reconstruction. COMPARISON: CT abdomen pelvis wo con [id number] 01/23/2020 5:28 AM RADIATION DOSE METRICS: Total DLP (mGy-cm): 533.41 FINDINGS: Limitations: The absence of intravenous contrast lessens the sensitivity of this study for solid organ abnormalities. Liver: The liver has a nodular contour and there is relative hypertrophy of the left and caudate lobes, consistent with cirrhosis. Gallbladder and bile ducts: There has been a cholecystectomy. Pancreas: The pancreas is normal. Spleen: The spleen is normal. There is moderate nonspecific splenomegaly. Adrenal glands: The adrenal glands are normal. Kidneys and ureters: There are 2 small hyperdense cysts in the left kidney not changed from previous examination. There is no evidence of hydronephrosis. There is no evidence of renal or ureteral calcifications. Stomach and bowel: Extensive diverticulosis is present in the distal colon. There is no evidence of colitis/diverticulitis. There is no evidence of colitis/diverticulitis. Appendix: A normal appendix is identified. Intraperitoneal space: Unremarkable. No free air. No significant fluid collection. Vasculature: There is moderate atherosclerotic calcification of the coronary arteries. Lymph nodes: Unremarkable. No enlarged lymph nodes. Urinary bladder: Unremarkable as visualized. Reproductive: There has been a hysterectomy. Bones/joints: The lumbar spine demonstrates moderate degenerative changes at multiple levels. Soft tissues: Unremarkable. CT/CT abdomen pelvis wo con [id number] IMPRESSION: 1. Cirrhosis and splenomegaly. 2. Minimal ascites not changed from previous 3. No acute finding. No significant change from 01/23/2020. COMMENTS: Consistent with the [employer]'s Incidental Findings Committee white paper (J Am Gloria Radiol 2018): Any incidental renal lesion less than 1 cm or classified as too small to characterize, or any incidental cystic renal lesion characterized as simple-appearing, is likely benign. No follow-up imaging is recommended for these lesions per consensus recommendations based on imaging criteria. Radiation Dose CTDIVOL = (mGy): DLP = 533.41 (mGy-cm)
--- NOTE | 2020-02-02 21:00 | CTR_ITS ---
PROCEDURE INFORMATION: Exam: CT Head Without Contrast Exam date and time: 02/02/2020 9:05 PM Age: 79 years old Clinical indication: Syncope and collapse; Additional info: Fall TECHNIQUE: Imaging protocol: Computed tomography of the head without contrast. Radiation optimization: All CT scans at this facility use at least one of these dose optimization techniques: automated exposure control; mA and/or kV adjustment per patient size (includes targeted exams where dose is matched to clinical indication); or iterative reconstruction. COMPARISON: No relevant prior studies available. RADIATION DOSE METRICS: Total DLP (mGy-cm): 683.41 FINDINGS: Brain: There is moderate cortical atrophy. There is no intracranial mass, shift of midline structures, hemorrhage or edema. Cerebral ventricles: No ventriculomegaly. Bones/joints: Unremarkable. No acute fracture. Paranasal sinuses: Visualized sinuses are unremarkable. No fluid levels. Mastoid air cells: Visualized mastoid air cells are well aerated. Vasculature: There are extensive atherosclerotic changes in the distal vertebral arteries. Soft tissues: Unremarkable. CT/CT head wo con* [id number] IMPRESSION: 1. Moderate atrophy. 2. No acute intracranial finding. Radiation Dose CTDIVOL = (mGy): DLP = 683.41 (mGy-cm)
--- NOTE | 2020-02-02 21:45 | PC.NURSE ---
2114 Received Patient from ER. AAOx3 VS as noted PRBCS infusing without difficulty. [address] accompanied by housekeeper supervisor RN and educational technologist
[2020-02-02] MEDS: dextrose 5%-sod chloride 0.45% 1,000 ML 30 ML IV (22:40)
--- NOTE | 2020-02-02 22:59 | PC.NURSE ---
2215 PRBCs infused without incident Patient tolerated well.
[2020-02-03] VITALS (10 sets, daily range): BP systolic 96–133; BP diastolic 50–67; PULSE 65–73; RESP 9–23; TEMP 35.7–36.6; O2SAT 95–100
[2020-02-03 01:42] LABS: Basophils % 0.4 %; Eosinophils # 0.1 10^3/uL (0.0-0.8); Eosinophils % 0.9 %; Hematocrit 28.9 % (37.0-47.0); Hemoglobin 9.1 g/dL (11.5-15.3); Lymphocytes # 3.5 10^3/uL (0.8-4.8); Mean Corpuscular HGB Conc 31.5 g/dL (30.0-36.0); Mean Corpuscular Hemoglobin 27.6 pg (28.0-34.0); Mean Corpuscular Volume 87.6 fL (81-99); Mean Platelet Volume 10.2 fL (7.4-10.4); Monocytes # 0.8 10^3/uL (0.2-0.9); Monocytes % 6.9 %; Neutrophils # 6.51 10^3/uL (1.8-7.7); Neutrophils % 59.5 %; Nucleated Red Blood Cells % 0 %; Platelet Count 337 10^3/cmm (130-400); Red Cell Distribution Width 18.2 % (12.1-15.1); White Blood Count 10.9 10^3/uL (4.0-10.0)
[2020-02-03 02:00] LABS: Blood Urea Nitrogen 78 mg/dL (8-23); Calcium 9.3 mg/dL (8.5-10.5); Carbon Dioxide 17 mmol/L (22-29); Chloride 109 mmol/L (98-107); Glucose 149 mg/dL (65-115); Osmolality Calculated 306 mOsm/kg (285-295); Sodium 135 mmol/L (136-145)
[2020-02-03 02:08] LABS: Anion Gap 14.7 (5-19)
[2020-02-03 02:09] LABS: Potassium 5.7 mmol/L (3.5-5.1)
[2020-02-03 07:05] LABS: Glucose Point of Care 129 mg/dL (70-110)
[2020-02-03] MEDS: pantoprazole 40 mg SDV IVP (08:28)
--- NOTE | 2020-02-03 09:36 | PC.CHAP ---
Pastoral Care Encounter/Spiritual Assessment Type of Contact [] Declined human resource intern visit [] Patient/Family/Request visit [] Outpatient visit [] Follow-up visit [] Physician referral [] Code/Alert [x] Routine visit [] Staff referral [] Actively dying [] Patient sleeping [] Family support [] [] Out of room [] Palliative care [] [] Receiving care in room [] Pre-surgical visit [] Trauma [] Long length of stay [] ICU visit [] Other: Relational/Emotional Strength [] Patient feels connected with others/family/visitors/staff [] Distress [] Loneliness/isolation [] Abandonment Spirituality of Patient [] Person of Britt [] Attends Gnosticism of their Britt [] Believes in Prayer [] Reads Bible or Buddhism materials [] There are Spiritual issues to be addressed Academic Coach Interventions [x] Prayer [x] Active listening [x] Non-anxious presence [x] Spiritual/emotional support [] Crisis/trauma care [] Spiritual counseling [] Bereavement support [] Provided bereavement packet [] Provided Bible/devotional materials [] Provided toy/stuffed animal, coloring book to patient or family member [] Provided Communion [] Anointing/[place] [] Salvation [x] Completed spiritual assessment [] Other: Impact on Illness or Injury [] Angry [] Fearful [] Anxious [] Often cries [] Exhaustion [] Unable to work [] Unable to attend sabianism [] Unable to walk/stand [] Unable to read [] Unable to drive [] Unable to eat/drink [] Unable to sleep [] Unable to be with family [] Patient intubated [] Other: Summary patient not feeling to good... promised we would revisit tomorrow Time spent with patient 5 min
--- NOTE | 2020-02-03 10:08 | P.CONIM_ITS ---
Providers/Reason For Consult Consulting Physican/Specialty*: Internal medicine/endoscopy Reason for Consult*: Copious melanotic stools Attending Physician: Bora Tierney Primary Care Provider: Marcelina Yan History of Present Illness History of Present Illness Chelsi Berger is a 79 year old female who presented to the emergency department after being found at home covered in melanotic stool. This is according to the physician who consulted me last night. Karmen is a challenging historian and does not really know anything about the melanotic stool issue. She appears to be a somewhat frail lady, and is a little bit confused today. Her history is reviewed, apparently she has been admitted with lower GI bleed to this hospital in July. According to [address] Bishop's notes she was transferred to [place] at some point where an EGD and colonoscopy was performed with no notation of what the EGD revealed. I am asked to see her because of melanotic stools and low hemoglobin. Karmen does admit to having some epigastric pain this morning. Review of Systems General: Reports: 10 or more systems reviewed and unremarkable except in HPI and below Meds/Allergies Home Medications and Allergies Home Medications Medication Instructions Recorded Confirmed Last Taken Type Multi For Her 1 tab-cap PO DAILY 03/19/19 02/02/20 02/02/20 History carbidopa-levodopa [Sinemet CR] 1 tab PO TID 03/19/19 02/02/20 02/02/20 History entacapone 200 mg PO TID 03/19/19 02/02/20 02/02/20 History ropinirole 1 mg PO DAILY 03/19/19 02/02/20 02/02/20 History trazodone 50 mg PO BEDTIME 07/29/19 02/02/20 02/01/20 History escitalopram oxalate [Lexapro] 10 mg PO DAILY 01/23/20 02/02/20 02/02/20 History carvedilol [Coreg] 3.125 mg PO BID #0 tab 01/26/20 02/02/20 02/02/20 Rx Vitamin D3 1 tab PO DAILY 02/02/20 02/02/20 02/02/20 History lorazepam 0.5 mg PO BEDTIME 02/02/20 02/02/20 02/01/20 History pantoprazole 40 mg PO DAILY 02/02/20 02/02/20 02/02/20 History Allergies Allergy/AdvReac Type Severity Reaction Status Date / Time aspirin Allergy Unknown Verified 03/19/19 18:10 Current Medications Current Medications Generic Name Dose Route Start Last Admin Trade Name Freq PRN Reason Stop Dose Admin Dextrose/Sodium Chloride 1,000 mls @ 30 mls/hr 02/02/20 21:30 02/02/20 22:40 Dextrose 5%-Sod Chloride 0.45% IV 30 mls/hr .Q24H KIMBERLY Administration Pantoprazole Sodium 40 mg 02/03/20 09:00 02/03/20 08:28 Pantoprazole 40 Mg Sdv IVP 40 mg BID KIMBERLY Administration PFSH Acute PFSH: Medical History (Updated 02/03/20 @ 00:25 by Anderson Espinoza DO) Anemia Chronic kidney disease, stage III (moderate) Coronary artery disease Diastolic heart failure Diverticulosis Hyperlipidemia Hypertension Liver cirrhosis Lower GI bleed Moderate to severe pulmonary hypertension Oxygen dependent 2L per NC Parkinsons disease Tubular adenoma Type 2 diabetes mellitus Surgical History History of coronary artery stent placement 2006 History of tonsillectomy and adenoidectomy Hx of appendectomy Hx of cholecystectomy Hx of hysterectomy Family History Mother CAD (coronary artery disease) Myocardial infarction Diabetes Hypertension Social History (Updated 02/02/20 @ 20:49 by Marko Jose MD) Smoking and tobacco status: never smoked Alcohol intake: never Substance/Drug Use: never Household members: family Housing: House Vitals/I&O/Wt Last Vital Signs Temp 96.2 F L 02/03/20 07:23 Pulse 67 02/03/20 07:23 Resp 23 H 02/03/20 07:23 BP 131/67 02/03/20 07:23 Pulse Ox 100 02/03/20 07:23 02/02/20 02/03/20 02/03/20 22:59 06:59 14:59 Intake Total 350 / 350 Balance 350 / 350 Weight last 48 hrs Weight 96 lb Physical Exam Narrative: EXAM NARRATIVE: She is a frail-appearing lady with numerous superficial ecchymoses on her arms. She is in no distress on interview. Neck/C-Spine: COMMON NORMALS: no JVD Resp: COMMON NORMALS: normal respiratory effort, No retractions, No use of accessory muscles, clear to auscultation bilaterally and percussion normal AUSCULTATION: clear to auscultation bilaterally PERCUSSION: percussion normal Cardio: COMMON NORMALS: no JVD, regular rate, regular rhythm, S1 normal heart sound present, S2 normal heart sound present, No gallops present (Cardio), No clicks present (Cardio), No murmurs present (Cardio), No rub (Cardio) and Peripheral pulses 2+ throughout RATE: regular rate RHYTHM: regular rhythm HEART SOUNDS: S1 normal heart sound present and S2 normal heart sound present PERIPHERAL PULSES: Peripheral pulses 2+ throughout GI: OTHER: She is assuredly tender anywhere in her epigastrium. She does not have any organomegaly, but her belly is a bit firm and especially tender in the epigastrium. She has bowel sounds. A&P Assessment and plan (1) Black tarry stools: I will proceed with upper endoscopy due to the low blood counts and melanotic stools. It is my suspicion that this lady has had previous upper endoscopy within the year. If we do not find anything on this exam, then we may want to consider more exotic forms of small bowel imaging such as capsule endoscopy. Status: Acute (2) Blood loss anemia: Status: Acute Coding Level of Care Code Acute Insurance Representative for [facility] Fwd Exam Expanded Problem Focused Diagnoses Black tarry stools K92.1 Blood loss anemia D50.0 Comment He is allow Chiquita Ye to process this consult
--- NOTE | 2020-02-03 10:22 | ANES.PREANE2 ---
Pre-Anesthetic Assessment Pre-Anesthetic Assessment: Height/Weight: Height 1.57 m Weight 43.545 kg Temp Pulse Resp BP Pulse Ox 96.2 F L 67 23 H 131/67 100 02/03/20 07:23 02/03/20 07:23 02/03/20 07:23 02/03/20 07:23 02/03/20 07:23 Proposed Procedure: Operation Date: 02/03/20 09:45 Proposed Procedures p EGD(Not Applicable) - Vincenzo Keane MD Familial anesthetic complications: None Last intake: NPO > 8 hrs Exam: Pre-Anes Outpt Exam: clear to auscultation bilaterally and regular rate & rhythm Airway: Cervical ROM: WNL Dentition: False and Other (full set bottom teeth) Pulmonary: Comments: mod pulm HTN ON 2 L NC at home CV/HEM: CV/HEM: CAD (stent 2006) and HTN Comments: EF 30%, mod global hypokinesis, Mod mitral valve regurge, grade III diastolic dysfunction : : Chronic renal Insufficiency (CKD III) Metabolic: Metabolic: DM, Hyperlipidemia and Morbid obesity Neuropsych: Comments: parkinson's disease Anesthetic Plan: ASA status: 4 Anesthesia: MAC Risk of > 500 ml blood loss (7ml/kg in children): No Other Pertinent Information: hx obtained from chart review Meds/Allergies Current Medications: Current Medications Generic Name Dose Route Start Last Admin Trade Name Freq PRN Reason Stop Dose Admin Dextrose/Sodium Ch loride 1,000 mls @ 30 ml s/hr 02/02/20 21:30 02/02/20 22:40 Dextrose 5%-Sod Chloride 0.45% IV 30 mls/hr .Q24H KIMBERLY Administration Pantoprazole Sodiu m 40 mg 02/03/20 09:00 02/03/20 08:28 Pantoprazole 40 Mg Sdv IVP 40 mg BID KIMBERLY Administration PFSH Anesthesia PFSH: Medical History (Updated 02/03/20 @ 00:25 by Anderson Espinoza DO) Anemia Chronic kidney disease, stage III (moderate) Coronary artery disease Diastolic heart failure Diverticulosis Hyperlipidemia Hypertension Liver cirrhosis Lower GI bleed Moderate to severe pulmonary hypertension Oxygen dependent 2L per NC Parkinsons disease Tubular adenoma Type 2 diabetes mellitus Surgical History History of coronary artery stent placement 2006 History of tonsillectomy and adenoidectomy Hx of appendectomy Hx of cholecystectomy Hx of hysterectomy Family History Mother CAD (coronary artery disease) Myocardial infarction Diabetes Hypertension Social History (Updated 02/02/20 @ 20:49 by Marko Jose MD) Smoking and tobacco status: never smoked Alcohol intake: never Substance/Drug Use: never Household members: family Housing: House Data Anesthesia CBC & Chem 7: 02/03/20 01:16 02/03/20 10:47 Other Labs: Laboratory Results - last 48 hr 02/02/20 02/02/20 02/02/20 18:00 18:00 18:00 WBC 9.2 RBC 3.09 L Hgb 8.3 L Hct 27.2 L MCV 88.0 MCH 26.9 L MCHC 30.5 RDW 20.7 H Plt Count 389 MPV 10.2 Neut % (Auto) 60.4 Lymph % (Auto) 30.8 [place] % (Auto) 6.4 Eos % (Auto) 1.8 Baso % (Auto) 0.4 Neut # (Auto) 5.55 Lymph # (Auto) 2.8 [place] # (Auto) 0.6 Eos # (Auto) 0.2 Baso # (Auto) 0.0 Nucleated RBC % (auto) 0 Nucleated RBCs # 0.0 PT 15.00 H INR 1.14 D-Dimer Sodium Potassium Chloride Carbon Dioxide Anion Gap BUN Creatinine GFR Calculation Glucose POC Glucose Estimat Average Glucose Hemoglobin A1c Calculated Osmolality Lactic Acid Calcium Total Bilirubin AST ALT Alkaline Phosphatase Troponin T Gen 5 ng/L Total Protein Albumin Globulin Lipase Blood Type A Positive Rho(D) Type Positive Antibody Screen Negative Crossmatch See Detail 02/02/20 02/02/20 02/02/20 18:00 18:00 18:00 WBC RBC Hgb Hct MCV MCH MCHC RDW Plt Count MPV Neut % (Auto) Lymph % (Auto) [place] % (Auto) Eos % (Auto) Baso % (Auto) Neut # (Auto) Lymph # (Auto) [place] # (Auto) Eos # (Auto) Baso # (Auto) Nucleated RBC % (auto) Nucleated RBCs # PT INR D-Dimer Sodium 136 Potassium 5.0 Chloride 108 H Carbon Dioxide 17 L Anion Gap 16.0 BUN 81 H Creatinine 2.0 H GFR Calculation Not Reportable Glucose 154 H POC Glucose Estimat Average Glucose Hemoglobin A1c Calculated Osmolality 309 H Lactic Acid 1.6 Calcium 9.7 Total Bilirubin 0.3 AST 21 ALT < 5 Alkaline Phosphatase 124 H Troponin T Gen 5 ng/L 98 H Total Protein 6.5 L Albumin 3.0 L Globulin 3.5 Lipase 97 H Blood Type Rho(D) Type Antibody Screen Crossmatch 02/02/20 02/02/20 02/03/20 18:00 18:00 01:16 WBC RBC Hgb Cancelled Hct Cancelled MCV MCH MCHC RDW Plt Count MPV Neut % (Auto) Lymph % (Auto) [place] % (Auto) Eos % (Auto) Baso % (Auto) Neut # (Auto) Lymph # (Auto) [place] # (Auto) Eos # (Auto) Baso # (Auto) Nucleated RBC % (auto) Nucleated RBCs # PT INR D-Dimer 6.34 H Sodium Potassium Chloride Carbon Dioxide Anion Gap BUN Creatinine GFR Calculation Glucose POC Glucose Estimat Average Glucose 94 Hemoglobin A1c 4.9 Calculated Osmolality Lactic Acid Calcium Total Bilirubin AST ALT Alkaline Phosphatase Troponin T Gen 5 ng/L Total Protein Albumin Globulin Lipase Blood Type Rho(D) Type Antibody Screen Crossmatch 02/03/20 02/03/20 02/03/20 01:16 01:16 06:54 WBC 10.9 H RBC 3.30 L Hgb 9.1 L Hct 28.9 L MCV 87.6 MCH 27.6 L MCHC 31.5 RDW 18.2 H Plt Count 337 MPV 10.2 Neut % (Auto) 59.5 Lymph % (Auto) 32.0 [place] % (Auto) 6.9 Eos % (Auto) 0.9 Baso % (Auto) 0.4 Neut # (Auto) 6.51 Lymph # (Auto) 3.5 [place] # (Auto) 0.8 Eos # (Auto) 0.1 Baso # (Auto) 0.0 Nucleated RBC % (auto) 0 Nucleated RBCs # 0.0 PT INR D-Dimer Sodium 135 L Potassium 5.7 H Chloride 109 H Carbon Dioxide 17 L Anion Gap 14.7 BUN 78 H Creatinine 1.8 H GFR Calculation Not Reportable Glucose 149 H POC Glucose 129 Estimat Average Glucose Hemoglobin A1c Calculated Osmolality 306 H Lactic Acid Calcium 9.3 Total Bilirubin AST ALT Alkaline Phosphatase Troponin T Gen 5 ng/L Total Protein Albumin Globulin Lipase Blood Type Rho(D) Type Antibody Screen Crossmatch Cardiac Studies: No Data to Display
[2020-02-03 11:14] LABS: Potassium 4.3 mmol/L (3.5-5.1)
[2020-02-03 11:23] LABS: Glucose Point of Care 122 mg/dL (70-110)
--- NOTE | 2020-02-03 14:13 | ANE.PACU2 ---
Inpatient post-anesthesia follow up: Airway intact: Yes Vital signs: Temperature 97 F Pulse Rate [Monito r] 64 Pulse Rate 71 Respiratory Rate 18 Blood Pressure [Ri ght Arm] 113/52 Blood Pressure 101/56 Pulse Oximetry 97 Oxygen Delivery Me thod Room Air Oxygen Flow Rate 3 Fraction of Inspir ed Oxygen Hydration adequate: Yes Nausea and vomiting: No Pain level: 1 Mental status: Baseline
[2020-02-03 16:04] LABS: Glucose Point of Care 190 mg/dL (70-110)
[2020-02-03 16:35] LABS: Hemoglobin 9.4 g/dL (11.5-15.3)
[2020-02-03 17:03] LABS: Ammonia 33 umol/L (11-51)
[2020-02-03 17:08] LABS: Troponin T (5th) Once 101 ng/L (0-10)
--- NOTE | 2020-02-03 19:16 | P.PN_ITS ---
Subjective Subjective: Interval history: She is doing all right after upper endoscopy. Denies any pain. No trouble breathing. No chest pain. No further stools. Vitals/I&O/Wt Last Vital Signs Temp 97.6 F 02/03/20 15:10 Pulse 73 02/03/20 15:10 Resp 13 02/03/20 15:10 BP 122/60 02/03/20 15:10 Pulse Ox 100 02/03/20 15:10 02/03/20 02/03/20 02/03/20 06:59 14:59 22:59 Intake Total 880 / 880 480 / 1360 Balance 880 / 880 480 / 1360 Weight last 48 hrs Weight 43.545 kg Physical Exam Const: COMMON NORMALS: no acute distress and patient oriented x3 OTHER: Multiple bruises over her arms, hands, shoulders, confluent. HENMT: COMMON NORMALS: oropharynx normal Neck/C-Spine: COMMON NORMALS: no JVD Resp: COMMON NORMALS: normal respiratory effort and clear to auscultation bilaterally AUSCULTATION: clear to auscultation bilaterally Cardio: COMMON NORMALS: no JVD, regular rhythm, S1 normal heart sound present, S2 normal heart sound present and No murmurs present (Cardio) RHYTHM: regular rhythm HEART SOUNDS: S1 normal heart sound present and S2 normal heart sound present GI: COMMON NORMALS: Normal to inspection, nondistended, normoactive bowel sounds present, Soft to palpation and non-tender PALPATION: Yes Soft to p alpation Extremity: COMMON NORMALS: no joint enlargement and no pedal edema Neuro: COMMON NORMALS: patient oriented x3 and moves all extremities Skin: COMMON NORMALS: no rashes or lesions noted GENERAL SKIN EXAM: no rashes or lesions noted Data : 02/03/20 16:15 A&P Assessment and plan (1) Black tarry stools: Unremarkable EGD. Hemoglobin 9.4 today. So far no further melanotic stools. Discussed with results with patient's. Discussed that if persistent bleeding is seen, we may need to seek additional elevation by deep enteroscopy, capsule end oscopy or other at a higher level care facility. We will recheck hemoglobin tomorrow. She does have quite extensive bruises which are confluent on both upper extremities. Will check ESR, CRP. Denies recurrent falls or abuse. Has cirrhosis, although INR is not significantly elevated. Lexapro can sometimes contribute to bleeding coagulopathy, will for now hold. She is on minimal dose. CLD Status: Acute (2) Normocytic anemia: Status: Acute (3) Blood loss anemia: Recheck hemoglobin in the morning. Discontinue Lexapro. Check coagulation panel, fibrinogen. Status: Acute (4) Liver cirrhosis: Status: Acute (5) Elevated d-dimer: Nonspecific finding, but D-dimer is quite elevated. Unclear due to what. Did have recent hospitalization, has chronic kidney disease, liver cirrhosis. INR only minimally elevated at 1.14. Will check lower extremity duplex. VQ scan. Concern may be for occult malignancy given recurrent bleeding, although so far none identified with recent colonoscopy and current EGD. Status: Acute Additional A&P Information Extreme lethargy due to anemia: Ammonia level is normal. Currently awake and alert. Cooperative. Says she is doing okay and back to her usual self. CT of the head with moderate atrophy, no acute intracranial finding. Syncopal event: Additional assessment as above. Check orthostatics. Doing home medications. History of ischemic cardiomyopathy: No acute exacerbation History of type 2 diabetes: Insulin recently discontinued due to hypoglycemia. Monitor glucose. Parkinson's disease No active decompensation, Patient was recommended jail placement which she refused Considering active deconditioning she would definitely benefit from jail placement Full code CLD DVT prophylaxis contraindicated, use SCDs Attestations Medical Necessity Statement*: Continue hospitalization for assessment management of recurrent GI bleeding, acute blood loss anemia, elevated D-dimer in the setting of liver cirrhosis, syncopal event prior to hospitalization, with underlying ischemic cardiomyopathy, diabetes, Parkinson's disease, and other problems. Coding Level of Care Code Acute Certified Nurse Operating Room for Chg Fwd Diagnoses Black tarry stools K92.1 Normocytic anemia D64.9 Blood loss anemia D50.0 Liver cirrhosis K74.60 Elevated d-dimer R79.89
[2020-02-03 20:19] LABS: C Reactive Protein 3.1 mg/L (0.0-4.9)
[2020-02-03 20:45] LABS: Erythrocyte Sedimentation Rate 14 mm/hr (0-15)
[2020-02-03 20:51] LABS: Glucose Point of Care 231 mg/dL (70-110)
[2020-02-03] MEDS: pantoprazole DR 40 mg Tablet PO (21:11)
[2020-02-03] MEDS: trazodone 50 mg Tablet PO (21:12)
[2020-02-03] MEDS: LORazepam 0.5 mg Tablet PO (21:12)
[2020-02-03] MEDS: carbidopa-levodopa ER 50-200mg Tablet 1 EACH PO (21:12)
[2020-02-04] VITALS (7 sets, daily range): BP systolic 97–130; BP diastolic 45–71; PULSE 62–79; RESP 12–19; TEMP 35.8–36.7; O2SAT 97–100
[2020-02-04 06:40] LABS: Glucose Point of Care 101 mg/dL (70-110)
[2020-02-04 06:47] LABS: Basophils # 0.1 10^3/uL (0.0-0.1); Basophils % 0.7 %; Eosinophils # 0.2 10^3/uL (0.0-0.8); Eosinophils % 2.2 %; Hematocrit 29.7 % (37.0-47.0); Hemoglobin 9.5 g/dL (11.5-15.3); Lymphocytes # 3.4 10^3/uL (0.8-4.8); Lymphocytes % 35.5 %; Mean Corpuscular Hemoglobin 27.3 pg (28.0-34.0); Mean Corpuscular Volume 85.3 fL (81-99); Mean Platelet Volume 9.9 fL (7.4-10.4); Monocytes # 0.8 10^3/uL (0.2-0.9); Monocytes % 8.2 %; Neutrophils # 5.05 10^3/uL (1.8-7.7); Neutrophils % 53.2 %; Nucleated Red Blood Cells % 0 %; Platelet Count 343 10^3/cmm (130-400); Red Blood Count 3.48 10^6/uL (4.1-5.3); Red Cell Distribution Width 18.5 % (12.1-15.1); White Blood Count 9.5 10^3/uL (4.0-10.0)
[2020-02-04 06:57] LABS: INR 1.18 (0.8-1.2)
[2020-02-04 06:58] LABS: Partial Thromboplastin Time 36.1 SECONDS (23.9-36.7)
[2020-02-04 06:59] LABS: Fibrinogen 205 mg/dL (174-498)
--- NOTE | 2020-02-04 07:10 | PC.NURSE ---
Patient resting in bed at time of assessment. No complaints at this time. Patient assisted into wheelchair [facility] Nurse to continue to monitor.
[2020-02-04 07:18] LABS: Alanine Aminotransferase < 5 U/L (0-33); Albumin Level 2.8 g/dL (3.5-5.2); Alkaline Phosphatase 117 IU/L (35-105); Anion Gap 13.3 (5-19); Aspartate Amino Transferase 23 U/L (0-32); Blood Urea Nitrogen 65 mg/dL (8-23); Calcium 9.2 mg/dL (8.5-10.5); Carbon Dioxide 19 mmol/L (22-29); Chloride 110 mmol/L (98-107); Globulin 3.1 g/dL (1.3-4.6); Glucose 95 mg/dL (65-115); Osmolality Calculated 304 mOsm/kg (285-295); Potassium 4.3 mmol/L (3.5-5.1); Sodium 138 mmol/L (136-145); Total Bilirubin 0.4 mg/dL (0.15-1.2); Total Protein 5.9 g/dL (6.6-8.7)
[2020-02-04 07:23] LABS: Platelet Count 343 10^3/cmm (130-400)
[2020-02-04] MEDS: ropinirole 1 mg Tablet PO (08:11)
[2020-02-04] MEDS: carbidopa-levodopa ER 50-200mg Tablet 1 EACH PO ×3 (08:11→20:18)
[2020-02-04] MEDS: pantoprazole DR 40 mg Tablet PO ×2 (08:11→17:41)
[2020-02-04] MEDS: carvedilol 3.125 mg Tablet PO (08:11)
--- NOTE | 2020-02-04 09:21 | PC.CHAP ---
Pastoral Care Encounter/Spiritual Assessment Type of Contact [] Declined inorganic chemistry professor visit [] Patient/Family/Request visit [] Outpatient visit [x] Follow-up visit [] Physician referral [] Code/Alert [] Routine visit [] Staff referral [] Actively dying [] Patient sleeping [] Family support [] [] Out of room [] Palliative care [] [] Receiving care in room [] Pre-surgical visit [] Trauma [] Long length of stay [] ICU visit [] Other: Relational/Emotional Strength [] Patient feels connected with others/family/visitors/staff [] Distress [] Loneliness/isolation [] Abandonment Spirituality of Patient [] Person of Britt [] Attends Rastafarian of their [place] [] Believes in Prayer [] Reads Bible or Taoism materials [] There are Spiritual issues to be addressed Digestion Operator Interventions [x] Prayer [x] Active listening [x] Non-anxious presence [x] Spiritual/emotional support [] Crisis/trauma care [] Spiritual counseling [] Bereavement support [] Provided bereavement packet [] Provided Bible/devotional materials [] Provided toy/stuffed animal, coloring book to patient or family member [] Provided Communion [] Anointing/[place] [] Salvation [x] Completed spiritual assessment [] Other: Impact on Illness or Injury [] Angry [] Fearful [] Anxious [] Often cries [] Exhaustion [] Unable to work [] Unable to attend temple [] Unable to walk/stand [] Unable to read [] Unable to drive [] Unable to eat/drink [] Unable to sleep [] Unable to be with family [] Patient intubated [] Other: Summary patient feeling stronger today Time spent with patient 5 min
--- NOTE | 2020-02-04 10:32 | ANE.PACU2 ---
Inpatient post-anesthesia follow up: Airway intact: Yes Vital signs: Temperature 97.8 F Pulse Rate [Monito r] 64 Pulse Rate [Orthos tatic 71 Sitting] Pulse Rate [Orthos tatic Lying] 71 Pulse Rate 78 Respiratory Rate 18 Blood Pressure [Or thostatic 133/65 Sitting] Blood Pressure [Or thostatic 123/60 Lying] Blood Pressure [Ri ght Arm] 113/52 Blood Pressure 128/64 Pulse Oximetry 100 Oxygen Delivery Me thod Room Air Oxygen Flow Rate 3 Fraction of Inspir ed Oxygen Hydration adequate: Yes Nausea and vomiting: No Pain level: 1 Mental status: Baseline
[2020-02-04 10:53] LABS: Troponin T (5th) Once 92 ng/L (0-10)
[2020-02-04 11:32] LABS: Glucose Point of Care 182 mg/dL (70-110)
--- NOTE | 2020-02-04 11:43 | USCV_ITS ---
Chelsi Berger Age: 79 Gender: F : 1940 Exam Date: 02/04/2020 13:02 Ordering Phys: Bora Tierney MD Technologist: Jose Link [place] [facility] [place]ication: TROP ELEV BP: 106 / 50 HR: 64 Rhythm: Sinus Technical Quality: Adequate MEASUREMENTS (Male / Female) Normal Values 2D ECHO LV Diastolic Diameter PLAX 5.0 cm 4.2 - 5.9 / 3.9 - 5.3 cm LV Systolic Diameter PLAX 4.0 cm IVS Diastolic Thickness 1.1 cm 0.6 - 1.0 / 0.6 - 0.9 cm IVS Systolic Thickness 1.7 cm LVPW Diastolic Thickness 1.0 cm 0.6 - 1.0 / 0.6 - 0.9 cm LVPW Systolic Thickness 1.1 cm LVOT Diameter 2.0 cm LV Ejection Fraction 2D Teich 40.2 % LV Ejection Fraction MOD 2C 64.8 % LV Ejection Fraction 2C AL 64.1 % LA Diameter 3.7 cm LA Width 4.5 cm LA Height 4.8 cm RA Width 3.0 cm RA Height 5.1 cm Aorta at Sinotubular Diameter 2.9 cm M-MODE LV Diastolic Diameter MM 6.3 cm 4.2 - 5.9 / 3.9 - 5.3 cm LV Systolic Diameter MM 4.7 cm LV Ejection Fraction MM Teich 48.5 % IVS Diastolic Thickness MM 1.3 cm 0.6 - 1.0 / 0.6 - 0.9 cm IVS Systolic Thickness MM 1.5 cm LVPW Diastolic Thickness MM 1.5 cm 0.6 - 1.0 / 0.6 - 0.9 cm LVPW Systolic Thickness MM 1.8 cm RV Diastolic Diameter MM 1.6 cm Aortic Annulus Diameter 4.5 cm LA Ao Ratio MM 0.9 MV E Point Septal Separation 3.9 cm DOPPLER AV Peak Velocity 136.0 cm/s LVOT Peak Velocity 84.0 cm/s AV Area Cont Eq vti 1.5 cm squared AV Area Cont Eq pk 2.0 cm squared MV Area PHT 5.0 cm squared Mitral E to A Ratio 0.6 MV E' Velocity 36.5 cm/s Mitral E to MV E' Ratio 20.3 Mitral E to LV E' Lateral Ratio 18.1 Mitral E to LV E' Septal Ratio 23.0 TR Peak Velocity 141.3 cm/s TR Peak Gradient 8.0 mmHg TV Peak E Velocity 99.0 cm/s Right Atrial Pressure 3.0 mmHg Pulmonary Artery Systolic Pressu 11.0 mmHg PV Peak Velocity 111.0 cm/s FINDINGS Left Ventricle Mildly increased left ventricular cavity size. Mildly decreased left ventricular systolic function. Global left ventricular hypokinesis. Left ventricular ejection fraction is estimated at 48 %. Grade I/IV diastolic dysfunction (abnormal relaxation filling pattern), normal to mildly elevated filling pressures. Right Ventricle The right ventricle is normal in size and function. Right Atrium The right atrium is normal in size. Left Atrium Moderately increased left atrial size. Mitral Valve Mildly thickened mitral valve. Moderate mitral annular calcification. No mitral valve stenosis. Moderate mitral valve regurgitation. Aortic Valve Moderate aortic valve calcification. Mild aortic valve stenosis, mean gradient 2.6 mmHg, SKY 1.5 cm squared. Trace aortic valve regurgitation. Tricuspid Valve Structurally normal tricuspid valve without significant stenosis or regurgitation. Pulmonary artery systolic pressure is normal. Pulmonic Valve Structurally normal pulmonic valve without significant stenosis. There is no pulmonic regurgitation. Pericardium Normal pericardium without effusion. Aorta Normal ascending aorta dimension. CONCLUSIONS 1-Mildly increased left ventricular cavity size. Mildly decreased left ventricular systolic function. Global left ventricular hypokinesis. Left ventricular ejection fraction is estimated at 48 %. Grade I/IV diastolic dysfunction (abnormal relaxation filling pattern), normal to mildly elevated filling pressures. 2-Moderately increased left atrial size. 3-Mildly thickened mitral valve. Moderate mitral annular calcification. No mitral valve stenosis. Moderate mitral valve regurgitation. 4-Moderate aortic valve calcification. Mild aortic valve stenosis, mean gradient 2.6 mmHg, SKY 1.5 cm squared. Trace aortic valve regurgitation. 5-There is no pericardial effusion. 6-Pulmonary artery systolic pressure is within normal limits. 7-When compared to the prior echocardiogram dated 11/12/2019 left ventricle ejection fraction has improved from severely depressed 35% to mildly reduced 48% now. Marko Thomas MD (Electronically Signed) Final Date: 04 February 2020 18:02 S
--- NOTE | 2020-02-04 11:49 | PM.CONSULT ---
Providers/Reason For Consult Consulting Physican/Specialty*: Cardiology Reason for Consult*: Abnormal cardiac markers, congestive heart failure, type II myocardial infarction Attending Physician: Bora Tierney Primary Care Provider: Marcelina Yan History of Present Illness History of Present Illness Chelsi Berger is a 79 year old female past medical history significant for questionable history of coronary disease as per patient she had angioplasty 20 years ago no documentation available to me and patient is not a reliable historian presented with GI bleed elevated D-dimer and abnormal GEN 5 cardiac markers troponin T, highest troponin recorded was 104 without significant EKG change or symptoms. Patient was ruled out for pulmonary embolism since her D-dimer was elevated with negative venous Doppler study and perfusion scan which was low probability. Patient denies actively any chest pain upon exertion or at rest. Review of Systems General: Reports: 10 or more systems reviewed and unremarkable except in HPI and below Const: Reports: chills, body aches, change in appetite, fatigue and malaise; Denies: fever(s) Eyes: Denies: change in vision or photophobia ENMT: Denies: throat pain, enlarged tonsils, swelling of lips/tongue or sinus pain Card: Reports: syncope; Denies: chest pain Resp: Denies: dyspnea or wheezing GI: Reports: abdominal pain, diarrhea and melena; Denies: nausea, vomiting or hematochezia : Denies: flank pain, dysuria or hematuria Musc: Denies: neck pain or back pain Skin/Breast: Reports: skin tenderness, new lesions and lesions; Denies: rash or erythema Neuro: Denies: headache(s) Psych: Denies: anxiety Endo: Denies: polyuria Rashard/Lymph: Reports: easy bruising, easy bleeding and petechiae All/Imm: Denies: urticaria or acute wheezing Meds/Allergies Home Medications and Allergies Home Medications Medication Instructions Recorded Confirmed Last Taken Type Multi For Her 1 tab-cap PO DAILY 03/19/19 02/02/20 02/02/20 History carbidopa-levodopa [Sinemet CR] 1 tab PO TID 03/19/19 02/02/20 02/02/20 History entacapone 200 mg PO TID 03/19/19 02/02/20 02/02/20 History ropinirole 1 mg PO DAILY 03/19/19 02/02/2020 History trazodone 50 mg PO BEDTIME 07/29/19 02/02/20 02/01/20 History escitalopram oxalate [Lexapro] 10 mg PO DAILY 01/23/20 02/02/20 02/02/20 History carvedilol [Coreg] 3.125 mg PO BID #0 tab 01/26/20 02/02/20 02/02/20 Rx Vitamin D3 1 tab PO DAILY 02/02/20 02/02/20 02/02/20 History lorazepam 0.5 mg PO BEDTIME 02/02/20 02/02/20 02/01/20 History pantoprazole 40 mg PO DAILY 02/02/20 02/02/20 02/02/20 History Allergies Allergy/AdvReac Type Severity Reaction Status Date / Time aspirin Allergy Unknown Verified 03/19/19 18:10 Current Medications Current Medications Generic Name Dose Route Start Last Admin Trade Name Freq PRN Reason Stop Dose Admin Carbidopa/Levodopa 1 each 02/03/20 21:00 02/04/20 08:11 Carbidopa-Levodopa Er 50-200mg Tablet PO 1 each TID KIMBERLY Administration Carvedilol 3.125 mg 02/04/20 09:00 02/04/20 08:11 Carvedilol 3.125 Mg Tablet PO 3.125 mg BID KIMBERLY Administration Lorazepam 0.5 mg 02/03/20 21:00 02/03/20 21:12 Lorazepam 0.5 Mg Tablet PO 0.5 mg BEDTIME KIMBERLY Administration Pantoprazole Sodium 40 mg 02/03/20 19:20 02/04/20 08:[address] 40 Mg Tablet PO 40 mg BID KIMBERLY Administration Ropinirole HCl 1 mg 02/04/20 09:00 02/04/20 08:11 Ropinirole 1 Mg Tablet PO 1 mg DAILY KIMBERLY Administration Trazodone HCl 50 mg 02/03/20 21:00 02/03/20 21:12 Trazodone 50 Mg Tablet PO 50 mg BEDTIME KIMBERLY Administration PFSH Acute PFSH: Medical History (Updated 02/04/20 @ 20:37 by Marko Thomas MD) Anemia Chronic kidney disease, stage III (moderate) Coronary artery disease Diastolic heart failure Diverticulosis Hyperlipidemia Hypertension Liver cirrhosis Lower GI bleed Moderate to severe pulmonary hypertension Oxygen dependent 2L per [place] Parkinsons disease Tubular adenoma Type 2 diabetes mellitus Surgical History History of coronary artery stent placement 2006 History of tonsillectomy and adenoidectomy Hx of appendectomy Hx of cholecystectomy Hx of hysterectomy Family History Mother CAD (coronary artery disease) Myocardial infarction Diabetes Hypertension Social History (Updated 02/02/20 @ 20:49 by Marko Jose MD) Smoking and tobacco status: never smoked Alcohol intake: never Household members: family Housing: House Vitals/I&O/Wt Last Vital Signs Temp 96.4 F L 02/04/20 10:49 Pulse 62 02/04/20 10:49 Resp 15 02/04/20 10:49 BP 106/50 02/04/20 10:49 Pulse Ox 99 02/04/20 10:49 02/03/20 02/04/20 02/04/20 22:59 06:59 14:59 Intake Total 600 / 1480 480 / 480 Balance 600 / 1480 480 / 480 Weight last 48 hrs Weight 96 lb Physical Exam Narrative: EXAM NARRATIVE: GENERAL: Patient is awake oriented sitting in the chair eating lunch. NECK: No jugular vein distension. HEENT: No cyanosis. No icterus. No pallor. HEART: Regular S1 and S2. No murmur, rub or gallop. LUNGS: Clear to auscultate bilaterally. ABDOMEN: Soft, nontender and nondistended. Positive bowel sounds. No guarding, rebound or tenderness. CENTRAL NERVOUS SYSTEM: Grossly nonfocal. EXTREMITIES: Lower extremities without edema bilaterally. A&P Assessment and plan (1) Myocardial infarction due to demand ischemia: Most likely patient has demand ischemia due to poor oxygen carrying capacity secondary to GI bleed and anemia. Echocardiogram showed improved ejection fraction from the prior exam was severely depressed to mildly depressed now. There is no new wall motion abnormality. Mitral regurgitation is mild to moderate. We therefore recommend conservative management with optimization of medicine. Consider adding statin and isosorbide mononitrate with beta-sarah once stable vital velásquez. In the face of acute GI bleed anticoagulation may not necessity Status: Acute (2) GI bleed: As per medicine Status: Acute Qualifiers: GI bleed type/associated pathology: melena Qualified Code(s): K92.1 - Melena (3) Systolic CHF: Well compensated. Continue as per medicine. Status: Acute Qualifiers: Heart failure chronicity: chronic Qualified Code(s): I50.22 - Chronic systolic (congestive) heart failure Consult Attestations Medical Necessity Statement: Patient require continuation for above defined treatment. Coding Level of Care Code New Pt Acute Pharmacy Sales Assistant for [facility] Fwd Patient Type New History Detailed Exam Detailed Medical Decision Making Moderate Complexity Diagnoses Myocardial infarction due to demand ischemia I21.A1 GI bleed K92.1 GI bleed type/associated pathology: melena Systolic CHF I50.22 Heart failure chronicity: chronic
[2020-02-04 16:21] LABS: Glucose Point of Care 145 mg/dL (70-110)
--- NOTE | 2020-02-04 17:45 | PC.NURSE ---
Coreg administration clarified with Dr. Tierney. BP 103/56 HR 70. Physician gave telephone order to hold evening administration, physician to adjust administration frequency, RBTO. Nurse to continue to monitor.
--- NOTE | 2020-02-04 18:25 | PC.NURSE ---
Patient , Chu, contacted about dc. 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 Dr. Tierney notified. DC postponed until tomorrow morning for safety of patient. No needs identified at this time.
--- NOTE | 2020-02-04 18:36 | PC.NURSE ---
Shift Summary Patient had uneventful shift. Patient had a total of 5 stools that were black and tarry. Patient assisted to chair for part of day, tolerated activity well. Patient appeared confused at times this afternoon but was easily reoriented. Chair alarm used while in chair.
--- NOTE | 2020-02-04 19:12 | USCV_ITS ---
Chelsi Berger Age: 79 Gender: F : 1940 Exam Date: 02/04/2020 05:30 Ordering Phys: Bora Tierney MD Technologist: Nay Saleh Exam Location: [facility] [place] Indication: ELEVATED D DIMER HISTORY: Elevated D Dimer PROCEDURES: Venous duplex imaging was performed in bilateral lower extremities. The following venous structures were evaluated: common femoral vein, profunda vein, proximal portion of the greater saphenous vein, superficial femoral vein, and the popliteal vein. In addition, the posterior tibial and peroneal trunk were evaluated. Serial compression, augmentation maneuvers, and spectral Doppler flow evaluation were performed. FINDINGS: Normal 2-D Doppler and augmentation and compressibility throughout the lower extremity venous structures. Additional imaging through the proximal calf veins also reveals no thrombus. Limited evaluation of the greater saphenous vein is patent with no thrombus. CONCLUSIONS No DVT bilateral lower extremities. Dr. Beulah Branch DO (Electronically Signed) Final Date: 04 February 2020 08:30 S
--- NOTE | 2020-02-04 19:13 | NM_ITS ---
WS: [id number] NUCLEAR MEDICINE VENTILATION/PERFUSION LUNG SCAN HISTORY: elevated ddimer COMPARISON: 08/03/2009, chest x-ray 02/02/2020 TECHNIQUE: Ventilation: 32.0 mCi of Technetium 99 DTPA aerosol inhaled. Perfusion: 4.6 mCi of technetium 99m MAA IV. Heart is enlarged. There are no matched defects. Perfusion and ventilation examinations are near norm al. There is a small amount of the radionuclide in the central trachea on the ventilatory portion of the exam. NM/NM pul vent and perfus* [id number] IMPRESSION: Low probability pulmonary embolism.
--- NOTE | 2020-02-04 19:13 | PM.PN ---
Subjective Subjective: Interval history: She is feeling better today she states. Denies any chest pain or pressure, denies shortness of breath. Denies other discomfort. We discussed with her regarding recurrent GI bleeding. She also has some diffuse bruising on upper extremities, shoulders, denies any falls, denies spousal abuse. Discussed concern regarding recurrent bleeding. We also discussed elevation of troponin. She has not had any chest pain. She does have risk factors for coronary disease. Discussed limitations currently with inability to initiate treatment with antiplatelet medications, anticoagulation. We discussed possibilities including transfer to higher level facility for additional assessment of recurrent GI bleeding with possible capsule endoscopy, possibly deep enteroscopy, to allow additional assessment and treatment of possible non-STEMI. She declines transfer, however, and prefers to return home as she states she will feeling well, and prefers to follow-up on outpatient basis. She states that her will give her a ride for her appointments. She understands the risk is elevated for her for acute coronary syndrome, and knows to return to hospital/call ambulance in case of any concerning chest pain, shortness of breath, bleeding or other concerning symptoms. She prefers to follow-up with gastroenterology in office for additional assessment. Also discussed regarding elevation of D-dimer I am concerned that this currently does not have a well identified cause. Again discussed with her concerning this for possible occult unidentified illness or even malignancy. She has given things good consideration and feels well enough to return home. We did have assessment for her by cardiology. She is agreeable to follow-up with outpatient stress test. We have been assessing additionally with echocardiogram which has just come back, however, she currently no longer has a ride available. Discharge delayed until tomorrow morning. Vitals/I&O/Wt Last Vital Signs Temp 96.5 F L 02/04/20 14:42 Pulse 67 02/04/20 14:42 Resp 14 02/04/20 14:42 BP 97/45 02/04/20 14:42 Pulse Ox 100 02/04/20 14:42 02/04/20 02/04/20 02/04/20 06:59 14:59 22:59 Intake Total 720 / 720 240 / 960 Balance 720 / 720 240 / 960 Physical Exam Const: COMMON NORMALS: no acute distress and patient oriented x3 OTHER: Multiple bruises over her arms, hands, shoulders, confluent. Sitting up in chair, appears stronger, more energetic. More conversant. HENMT: COMMON NORMALS: oropharynx normal Neck/C-Spine: COMMON NORMALS: no JVD Resp: COMMON NORMALS: normal respiratory effort and clear to auscultation bilaterally AUSCULTATION: clear to auscultation bilaterally Cardio: COMMON NORMALS: no JVD, regular rhythm, S1 normal heart sound present, S2 normal heart sound present and No murmurs present (Cardio) RHYTHM: regular rhythm HEART SOUNDS: S1 normal heart sound present and S2 normal heart sound present GI: COMMON NORMALS: Normal to inspection, nondistended, normoactive bowel sounds present, Soft to palpation and non-tender PALPATION: Yes Soft to palpation Extremity: COMMON NORMALS: no joint enlargement and no pedal edema Neuro: COMMON NORMALS: patient oriented x3 and moves all extremities Skin: COMMON NORMALS: no rashes or lesions noted GENERAL SKIN EXAM: no rashes or lesions noted Data : 02/04/20 06:18 02/04/20 06:18 A&P Assessment and plan (1) Black tarry stools: Hemoglobin is stable. At this time given recurrent GI bleeding not a candidate for antiplatelet therapy or anticoagulation. Discussed with her different options, and after consideration she declines transfer arrangements to higher level facility, request for outpatient follow-up with gastroenterology. Unremarkable EGD. Hemoglobin 9.5 today. So far no further melanotic stools. She does have quite extensive bruises which are confluent on both upper extremities. Normal ESR, CRP. Denies recurrent falls or abuse. Has cirrhosis, although INR is not significantly elevated. Lexapro can sometimes contribute to bleeding coagulopathy, will for now hold. She is on minimal dose. Discussed with her. CLD Status: Acute (2) Normocytic anemia: Status: Acute (3) Blood loss anemia: Follow-up hemoglobin in office. Discontinue Lexapro. Normal fibrinogen. INR 1.18. PTT 36. D-dimer has previously noted 6.34. Status: Acute (4) Liver cirrhosis: Status: Acute (5) Elevated d-dimer: Nonspecific finding, but D-dimer is quite elevated. Unclear etiology. Did have recent hospitalization, has chronic kidney disease, liver cirrhosis. INR only minimally elevated at 1.14. Will check lower extremity duplex. VQ scan. Concern may be for occult malignancy given recurrent bleeding, although so far none identified with recent colonoscopy and current EGD. As discussed with her needs additional GI assessment. Status: Acute Additional A&P Information Extreme lethargy due to anemia: Ammonia level is normal. Currently awake and alert. Cooperative. Says she is doing okay and back to her usual self. CT of the head with moderate atrophy, no acute intracranial finding. Syncopal event: Additional assessment as above. Normal orthostatics. Carvedilol dose held this evening due to soft blood pressure. At home continue decreased dose 3.25, however, will continue only once daily as blood pressure appears softer in the evenings. Fall precautions. Orthostatic precautions. She is at risk of orthostatic syncope with conditions that include Parkinson's, diabetes, history of ischemic cardiomyopathy. History of ischemic cardiomyopathy: No acute exacerbation. EF with improvement after 45% on today's echocardiogram. Appreciate cardiology assessment. Requesting follow-up in office. History of type 2 diabetes: Insulin recently discontinued due to hypoglycemia. Monitor glucose. Parkinson's disease No active decompensation, Patient was [place] [facility] [place] which she refused Considering active deconditioning she would definitely benefit from [place] [facility] [place] Full code CLD DVT prophylaxis contraindicated, use SCDs Attestations Medical Necessity Statement*: Continue admission for assessment management of recurrent GI bleeding, acute blood loss anemia, abnormal troponin, D-dimer, discharge arrangements. Coding Level of Care Code Acute Rn Radiation for Chg Fwd Diagnoses Black tarry stools K92.1 Normocytic anemia D64.9 Blood loss anemia D50.0 Liver cirrhosis K74.60 Elevated d-dimer R79.89
--- NOTE | 2020-02-04 19:30 | PC.NURSE ---
Report received from LUPILLO Canales. Patient resting in bed awake and alert. Discussed discharge pending for in the am. Patient not sure she is quite ready and appears nervous about discharge. Provided reassurance. Patient stated, I do feel a little stronger since I have been out of bed more frequently today. Patient is clean and dry at this time. Denies pain or other needs. No other distress observed.
[2020-02-04] MEDS: atorvastatin 40 mg Tablet PO (20:18)
[2020-02-04] MEDS: LORazepam 0.5 mg Tablet PO (20:18)
[2020-02-04] MEDS: trazodone 50 mg Tablet PO (20:18)
--- NOTE | 2020-02-04 20:46 | PC.NURSE ---
Assisted patient up to BSC. Patient had small dark green BM mixed with small amount of urine. Cleaned patient and applied brief. Assisted patient back to bed with moderate contact assist. Positioned for comfort. Placed call short within reach and reinforced teaching to call out when help is needed. Patient verbalized complete understanding. Denies pain or other needs. No distress observed.
[2020-02-04 20:50] LABS: Glucose Point of Care 143 mg/dL (70-110)
[2020-02-05] VITALS (7 sets, daily range): BP systolic 69–124; BP diastolic 26–82; PULSE 68–86; RESP 12–23; TEMP 35.8–36.6; O2SAT 96–100
[2020-02-05 04:56] LABS: Basophils # 0.1 10^3/uL (0.0-0.1); Basophils % 0.6 %; Eosinophils # 0.4 10^3/uL (0.0-0.8); Eosinophils % 3.8 %; Hematocrit 30.5 % (37.0-47.0); Hemoglobin 9.7 g/dL (11.5-15.3); Lymphocytes # 3.4 10^3/uL (0.8-4.8); Lymphocytes % 35.7 %; Mean Corpuscular HGB Conc 31.8 g/dL (30.0-36.0); Mean Corpuscular Hemoglobin 27.3 pg (28.0-34.0); Mean Corpuscular Volume 85.9 fL (81-99); Mean Platelet Volume 10.1 fL (7.4-10.4); Monocytes # 0.7 10^3/uL (0.2-0.9); Monocytes % 7.4 %; Neutrophils # 5.02 10^3/uL (1.8-7.7); Neutrophils % 52.3 %; Nucleated Red Blood Cells % 0 %; Platelet Count 370 10^3/cmm (130-400); Red Blood Count 3.55 10^6/uL (4.1-5.3); Red Cell Distribution Width 18.4 % (12.1-15.1); White Blood Count 9.6 10^3/uL (4.0-10.0)
[2020-02-05 05:24] LABS: Alanine Aminotransferase < 5 U/L (0-33); Albumin Level 2.7 g/dL (3.5-5.2); Alkaline Phosphatase 122 IU/L (35-105); Anion Gap 13.1 (5-19); Aspartate Amino Transferase 20 U/L (0-32); Blood Urea Nitrogen 60 mg/dL (8-23); Calcium 8.8 mg/dL (8.5-10.5); Carbon Dioxide 18 mmol/L (22-29); Chloride 107 mmol/L (98-107); Creatinine Clr Calc Pharmacy 19.4528; Globulin 3.3 g/dL (1.3-4.6); Glucose 92 mg/dL (65-115); Osmolality Calculated 295 mOsm/kg (285-295); Potassium 4.1 mmol/L (3.5-5.1); Sodium 134 mmol/L (136-145); Total Bilirubin 0.3 mg/dL (0.15-1.2)
[2020-02-05 06:41] LABS: Glucose Point of Care 94 mg/dL (70-110)
--- NOTE | 2020-02-05 08:45 | PC.NURSE ---
Patient reports dizziness while working with OT. Dr. Tierney at bedside. Verbal order obtained to get orthostatic VS. Call physician with results. Dr. Tierney notified of orthostatic vitals, physician to make medication adjustments. Telephone order obtained to discontinue coreg, RBTO. Nurse to continue to monitor.
[2020-02-05] MEDS: carbidopa-levodopa ER 50-200mg Tablet 1 EACH PO ×2 (08:46→14:03)
[2020-02-05] MEDS: ropinirole 1 mg Tablet PO (08:47)
[2020-02-05] MEDS: pantoprazole DR 40 mg Tablet PO (08:47)
[2020-02-05] MEDS: midodrine 5 mg TABLET PO ×2 (09:17→14:03)
--- NOTE | 2020-02-05 10:39 | PM.PN ---
Subjective Subjective: Interval history: Denies any complaint such as chest pain but continues to bleed actively with melena. Vitals/I&O/Wt Last Vital Signs Temp 97.6 F 02/05/20 08:00 Pulse 76 02/05/20 08:36 Resp 20 H 02/05/20 08:00 BP 117/64 02/05/20 08:36 Pulse Ox 96 02/05/20 08:00 02/04/20 02/05/20 02/05/20 22:59 06:59 14:59 Intake Total 240 / 960 100 / 1060 240 / 240 Balance 240 / 960 100 / 1060 240 / 240 Physical Exam Narrative: EXAM NARRATIVE: GENERAL: Patient is awake oriented sitting in the chair eating lunch. NECK: No jugular vein distension. HEENT: No cyanosis. No icterus. No pallor. HEART: Regular S1 and S2. No murmur, rub or gallop. LUNGS: Clear to auscultate bilaterally. ABDOMEN: Soft, nontender and nondistended. Positive bowel sounds. No guarding, rebound or tenderness. CENTRAL NERVOUS SYSTEM: Grossly nonfocal. EXTREMITIES: Lower extremities without edema bilaterally. Data : 02/05/20 04:25 02/05/20 04:25 A&P Assessment and plan (1) Myocardial infarction due to demand ischemia: Continue conservative management with statin. Since she continues to bleed actively no need of any antiplatelet or anticoagulation. Patient will be going for capsular endoscopy and perhaps upper endoscopy for which she needs to be transferred to [facility]. Medicine is working on it. Once stable as an outpatient may need stress test. We will follow her up as an outpatient. Status: Acute (2) GI bleed: As per medicine Status: Acute Qualifiers: GI bleed type/associated pathology: melena Qualified Code(s): K92.1 - Melena (3) Systolic CHF: Patient is on the dry side. IV fluid may can be given. Status: Acute Qualifiers: Heart failure chronicity: chronic Qualified Code(s): I50.22 - Chronic systolic (congestive) heart failure Attestations Medical Necessity Statement*: Patient require continuation hospitalization or transfer to the [facility] for capsular endoscopy since she continues to have melena Coding Level of Care Code Established Pt Acute Pharmacy Student for [facility] Fwd Patient Type Established History Expanded Problem Focused Exam Expanded Problem Focused Medical Decision Making Moderate Complexity Diagnoses Myocardial infarction due to demand ischemia I21.A1 GI bleed K92.1 GI bleed type/associated pathology: melena Systolic CHF I50.22 Heart failure chronicity: chronic
[2020-02-05 11:14] LABS: Glucose Point of Care 183 mg/dL (70-110)
--- NOTE | 2020-02-05 14:17 | P.TS_ITS ---
Transfer Summary Providers Date of Admission: 02/03/20 20:44 Date of Discharge: 02/05/20 Attending Provider at Admission: Marko Jose MD Attending Provider at Transfer: Bora Tierney Primary Care Provider: Marcelina Yan Anticipated Date of Transfer: Anticipated date of transfer: 02/05/20 Receiving Facility & Provider: Receiving Provider: [] Receiving facility: [] Diagnoses at Discharge Discharge Diagnosis (1) Myocardial infarction due to demand ischemia: Status: Acute (2) GI bleed: Status: Acute Qualifiers: GI bleed type/associated pathology: melena Qualified Code(s): K92.1 - Melena (3) Systolic CHF: Status: Acute Qualifiers: Heart failure chronicity: chronic Qualified Code(s): I50.22 - Chronic systolic (congestive) heart failure (4) Elevated troponin: Status: Acute (5) Elevated d-dimer: Status: Acute (6) Blood loss anemia: Status: Acute (7) Parkinsons disease: Status: Acute (8) Type 2 diabetes mellitus: Status: Acute (9) Liver cirrhosis: Status: Acute (10) Mitral regurgitation: Status: Acute Permanent problem details: Last echocardiogram (11) Orthostatic hypotension: Status: Acute Reason for Visit Reason for Visit: GI BLEED Hospital Course Hospital Course 79-year-old lady with history of congestive heart failure, ejection fraction 35%, CAD, status post stenting x1, DM 2, HTN, HLD, Parkinson's disease, CKD stage III, liver cirrhosis (unclear etiology, never drinker), chronic anemia, pulmonary hypertension, moderate to severe mitral regurgitation, recurrent GI bleeding was admitted for assessment due to symptomatic anemia, with lightheadedness, with noted bloody bowel movements. Melanotic stools noted recurrent while in the hospital as well. She is not on any blood thinner medications or antiplatelets. Has been feeling weak and lethargic. Underwent 1 unit PRBC transfusion. She had last had a colonoscopy in July 2019, with finding tubular adenoma. She underwent EGD assessment during this hospitalization which was normal. As Lexapro can sometimes have adverse effect of abnormal bleeding, this medication was discontinued. Of note on presentation D-dimer was found elevated. Has history of syncope in the past. Etiology of this is unclear. She had evaluation by duplex of lower extremities, as well as VQ scan of the lungs, without finding of VTE. Troponin was found elevated during his hospitalization -101-92. She was assessed by echocardiogram which showed improvement in ejection fraction up to 48%, with grade 1 diastolic dysfunction. Persistent moderate mitral valve regurgitation. Mild aortic valve stenosis. PA pressure noted in normal limits. She has remained chest pain- free. Was assessed by cardiology. Elevation considered likely secondary to demand ischemia, however, has known coronary disease, and would benefit from additional assessment by stress testing. At this time, however, not able to take antiplatelet medication or anticoagulation. Cardiology recommended beta- sarah, Imdur if able to tolerate, however, with significant orthostasis noted, with blood pressure decreasing from 117/64 laying down down to 69/26 standing up, these medications for now are held off on. Midodrine is initiated. Number of etiologies could be contributing to this including Parkinson's disease and d iabetes. Orthostatic precautions should be continued. This will need additional reevaluation. Due to recurrent GI bleeds with unidentified etiology, as well as unclear etiology of elevated D-dimer (cannot exclude underlying malignancy as cause of both), inability to tolerate anticoagulation, or antiplatelet medication, all of these issues were discussed with the patient, as well as her . Additional assessment and management of GI bleeding was recommended, possibly with Endoscopy versus deep enteroscopy which are not available here. Patient was agreeable for additional evaluation at higher level facility, and was kindly accepted for transfer to [facility] after discussion with Dr. Willis. Recurrent After GI bleeding and anemia are addressed, please refer for additional eval uation for underlying coronary disease, refer for follow-up with cardiology. Please see full notes, imaging and lab studies for details. Do not hesitate to call with any questions. Physical Exam Const: COMMON NORMALS: no acute distress and patient oriented x3 OTHER: Multiple bruises over her arms, hands, shoulders, confluent. Reclined in bed. HENMT: COMMON NORMALS: oropharynx normal Neck/C-Spine: COMMON NORMALS: no JVD Resp: COMMON NORMALS: normal respiratory effort and clear to auscultation bilaterally AUSCULTATION: clear to auscultation bilaterally Cardio: COMMON NORMALS: no JVD, regular rhythm, S1 normal heart sound present, S2 normal heart sound present and No murmurs present (Cardio) RHYTHM: regular rhythm HEART SOUNDS: S1 normal heart sound present and S2 normal heart sound present GI: COMMON NORMALS: Normal to inspection, nondistended, normoactive bowel sounds present, Soft to palpation and non-tender PALPATION: Yes Soft to palpation Extremity: COMMON NORMALS: no joint enlargement and no pedal edema Neuro: COMMON NORMALS: patient oriented x3 and moves all extremities Skin: COMMON NORMALS: no rashes or lesions noted GENERAL SKIN EXAM: no rashes or lesions noted TS Data Data Completed and Pending: Completed Studies During Hospitalization Category Date Time Status CT abdomen pelvis wo con [id number] Stat Cat Scan 02/02/20 21:[address] head wo con* [id number] Stat Cat Scan 02/02/20 21:00 Completed XR chest 1V anyi ble [id number] Stat Exams 02/02/20 17:35 Completed NM pul vent and p erfus* [id number] Routi ne Nuc Med 02/04/20 19:13 Completed CV echo complete* [id number] Routine Ultrasound 02/04/20 11:43 [place] [id number] Routin e Ultrasound 02/04/20 19:12 Completed Pending at discharge Category Date Time Status Complete Blood Co unt w/Auto AM LABS Lab 02/06/20 04:00 Ordered Comprehensive Met abolic Panel AM LA BS Lab 02/06/20 04:00 Ordered Leukocyte Reduced RBC Stat Lab 02/02/20 18:00 Results Type and Screen S tat Lab 02/02/20 18:00 Results Labs from last 24 hours 02/05/20 02/05/20 02/05/20 10:39 06:32 04:25 WBC RBC Hgb Hct MCV MCH MCHC RDW Plt Count MPV Neut % (Auto) Lymph % (Auto) Grant % (Auto) Eos % (Auto) Baso % (Auto) Neut # (Auto) Lymph # (Auto) Grant # (Auto) Eos # (Auto) Baso # (Auto) Nucleated RBC % (a uto) Nucleated RBCs # Sodium 134 L Potassium 4.1 Chloride 107 Carbon Dioxide 18 L Anion Gap 13.1 BUN 60 H Creatinine 1.7 H GFR Calculation Not Reportable Glucose 92 POC Glucose 183 94 Calculated Osmolal ity 295 Calcium 8.8 Total Bilirubin 0.3 AST 20 ALT < 5 Alkaline Phosphata se 122 H Total Protein 6.0 L Albumin 2.7 L Globulin 3.3 11/18/20 11/17/20 11/17/20 04:25 20:17 16:02 WBC 9.6 RBC 3.55 L Hgb 9.7 L Hct 30.5 L MCV 85.9 MCH 27.3 L MCHC 31.8 RDW 18.4 H Plt Count 370 MPV 10.1 Neut % (Auto) 52.3 Lymph % (Auto) 35.7 Grant % (Auto) 7.4 Eos % (Auto) 3.8 Baso % (Auto) 0.6 Neut # (Auto) 5.02 Lymph # (Auto) 3.4 Grant # (Auto) 0.7 Eos # (Auto) 0.4 Baso # (Auto) 0.1 Nucleated RBC % (a uto) 0 Nucleated RBCs # 0.0 Sodium Potassium Chloride Carbon Dioxide Anion Gap BUN Creatinine GFR Calculation Glucose POC Glucose 143 145 Calculated Osmolal ity Calcium Total Bilirubin AST ALT Alkaline Phosphata se Total Protein Albumin Globulin Vitals: Last Vital Signs Temp 96.4 F L 02/05/20 10:38 Pulse 74 02/05/20 10:38 Resp 20 H 02/05/20 10:38 BP 120/82 02/05/20 10:38 Pulse Ox 99 02/05/20 10:38 TS Medications Medications Home Medications Multi For Her 1 tab-cap PO DAILY 03/19/19 [History Confirmed 02/02/20] carbidopa-levodopa [Sinemet CR] 1 tab PO TID 03/19/19 [History Confirmed 02/02/20] entacapone 200 mg PO TID 03/19/19 [History Confirmed 02/02/20] ropinirole 1 mg PO DAILY 03/19/19 [History Confirmed 02/02/20] trazodone 50 mg PO BEDTIME 07/29/19 [History Confirmed 02/02/20] escitalopram oxalate [Lexapro] 10 mg PO DAILY 01/23/20 [History Confirmed 02/02/20] carvedilol [Coreg] 3.125 mg PO BID #0 tab 01/26/20 [Rx Confirmed 02/02/20] Vitamin D3 1 tab PO DAILY 02/02/20 [History Confirmed 02/02/20] lorazepam 0.5 mg PO BEDTIME 02/02/20 [History Confirmed 02/02/20] pantoprazole 40 mg PO DAILY 02/02/20 [History Confirmed 02/02/20] Active Medications Atorvastatin Calcium (Atorvastatin 40 Mg Tablet) 40 mg PO BEDTIME [facility] Last Admin: 02/04/20 20:18 Dose: 40 mg Documented by: Carbidopa/Levodopa (Carbidopa-Levodopa Er 50-200mg Tablet) 1 each PO TID [facility] Last Admin: 02/05/20 14:03 Dose: 1 each Documented by: Lorazepam (Lorazepam 0.5 Mg Tablet) 0.5 mg PO BEDTIME [facility] Last Admin: 02/04/20 20:18 Dose: 0.5 mg Documented by: Midodrine (Midodrine 5 Mg Tablet) 5 mg PO TID [facility] Last Admin: 02/05/20 14:03 Dose: 5 mg Documented by: Pantoprazole Sodium (Pantoprazole Dr 40 Mg Tablet) 40 mg PO BID [facility] Last Admin: 02/05/20 08:47 Dose: 40 mg Documented by: Ropinirole HCl (Ropinirole 1 Mg Tablet) 1 mg PO DAILY [facility] Last Admin: 02/05/20 08:47 Dose: 1 mg Documented by: Trazodone HCl (Trazodone 50 Mg Tablet) 50 mg PO BEDTIME [facility] Last Admin: 02/04/20 20:18 Dose: 50 mg Documented by: Discharge Plan Discharge Patient Disposition: Xfer Short-Term Hosp Condition: Stable Prescriptions: New atorvastatin 40 mg Tablet 40 mg PO BEDTIME Qty: 30 RF: 0 Continued ropinirole 1 mg Tablet 1 mg PO DAILY RF: 0 carbidopa-levodopa [Sinemet CR] 50-200 mg Tablet Extended Release 1 tab PO TID RF: 0 entacapone 200 mg Tablet 200 mg PO TID RF: 0 Multi For Her 18 mg iron-600 mcg-40 mcg Capsule 1 tab-cap PO DAILY RF: 0 lorazepam 0.5 mg Tablet 0.5 mg PO BEDTIME RF: 0 Vitamin D3 1 tab PO DAILY RF: 0 pantoprazole 40 mg tablet,delayed release (DR/EC) 40 mg PO DAILY RF: 0 trazodone 50 mg Tablet 50 mg PO BEDTIME RF: 0 Changed carvedilol [Coreg] 6.25 mg Tablet 3.125 mg PO DAILY Qty: 0 RF: 0 Discontinued escitalopram oxalate [Lexapro] 10 mg Tablet 10 mg PO DAILY RF: 0 Discharge Orders: Discharge Order (Routine); Ordered 02/04/20 Ordered By: Bora Halytskyy Other Ambulatory Orders: Sestamibi Stress Test Request (Routine) Timeframe: 3 Days Facility: [facility] - Location: Cardiac Diagnostic Laboratory Ordered By: Bora Tierney Referrals: Gastroenterology, physician [Other] - 1 week Marko Thomas MD [Physician] - 1 week (You are scheduled for an out-patient Lexiscan Stress Test on with Check-in at 10:30a.m. If, you have any questions or need to reschedule. Please call Also, please follow-up with Dr. Thomas on at 1:15p.m. If, you have any questions or need to reschedule. Please call .) Marcelina Yan PA [Primary Care Provider] - (Please, call for an follow-up appointment in 4 to 7 days. ) Discharge Diet: Advance as tolerated and Full LIquid Discharge Activity: Increase activity as tolerated and As per PT/OT instructions Patient Instructions: Atorvastatin (By mouth), Gastrointestinal Bleeding (DC), Cirrhosis (DC), Anemia (DC) Activity Restrictions/Additional Instructions: Please discuss with your primary care doctor regarding recurrent GI bleeding. For now your Lexapro is held in case it is contributing to bleeding episodes. Please discuss with your primary care doctor also consideration for possible underlying bleeding disorder in case discontinuing Lexapro does not solve the problem. If you experience any recurrence of bleeding, with blood in stool, dark black stools, with any lightheadedness, fainting, severe tiredness, chest pain, or any other abnormal symptoms, please seek medical attention immediately. Please note that your troponin is abnormal and concern is we cannot exclude that he may not have had a heart attack. Due to GI bleeding normal regimen for a heart attack could not be started. Please make sure to follow-up with stress test, and follow-up with your primary care provider afterwards as you may be at risk of heart attack due to risk factors. EKG experience any chest pain, pressure, shortness of breath, or any abnormal symptoms, please call an ambulance immediately. Please have your primary care doctor follow-up your blood count level to ensure your anemia is improving. Please discuss with your primary care doctor elevated level D-dimer without good explanation at this time. Please discuss with your primary care doctor additional rehabilitation at group home facility in case you change your mind. You would benefit from additional rehabilitation for strengthening. Please maintain strict fall precautions at home. Please rise slowly from laying to sitting and sitting to standing. Sit down or lie down if you get dizzy. If you experience fainting again, please seek medical attention. Please continue follow-up with your primary care doctor with regards to her liver cirrhosis, diabetes, Parkinson's disease and other chronic medical problems. Transfer Attestations Time Spent in Transfer Care*: greater than 30 min Quality Metrics Clinical Quality Measures: During this hospital stay, did patient experience: None Coding Level of Care Code Acute Evp And Chief Operating Officer for g Fwd Diagnoses Myocardial infarction due to demand ischemia I21.A1 GI bleed K92.1 GI bleed type/associated pathology: melena Systolic CHF I50.22 Heart failure chronicity: chronic Elevated troponin R77.8 Elevated d-dimer R79.89 Blood loss anemia D50.0 Parkinsons disease G20 Type 2 diabetes mellitus E11.9 Liver cirrhosis K74.60 Mitral regurgitation I34.0 Orthostatic hypotension I95.1
--- NOTE | 2020-02-05 14:50 | PC.NURSE ---
Report called to Kristie WESLEY at [facility]. Nurse verbalized understanding of information and did not have any questions. Call back number provided. Transportation has been contacted.
--- NOTE | 2020-02-05 16:11 | PC.NURSE ---
Patient transferred to [facility]. Bedside report given to quality control lab technician. Patient stable at this time. No further needs identified.
== END 2020-02-05 16:13 | disposition short-term general hospital (02) | DRG 377 ==
LOC: ER 20:57 → CSU 02-03 00:25
PROVIDERS: Anesthesiology; Emergency Medicine; Internal Medicine; Admitting Provider Internal Medicine; Emergency Provider Emergency Medicine; PCP Physician Assistant; Visit Provider Internal Medicine
PROC: 0DJ08ZZ Inspection of Upper Intestinal Tract, Via Natural or Artificial Opening Endoscopic (ICD-10-PCS; CPT 43235; principal; 2020-02-03 09:45)
DX: K92.1 Melena (principal); I21.A1 Myocardial infarction type 2; I13.0 Hypertensive heart and chronic kidney disease with heart failure and stage 1 through stage 4 chronic kidney disease, or unspecified chronic kidney disease; I50.22 Chronic systolic (congestive) heart failure; D62 Acute posthemorrhagic anemia; I25.10 Atherosclerotic heart disease of native coronary artery without angina pectoris; Z95.5 Presence of coronary angioplasty implant and graft; G20 Parkinson's disease; E11.22 Type 2 diabetes mellitus with diabetic chronic kidney disease; N18.30 Chronic kidney disease, stage 3 unspecified; I27.20 Pulmonary hypertension, unspecified; K74.60 Unspecified cirrhosis of liver; W19.XXXA Unspecified fall, initial encounter; E78.5 Hyperlipidemia, unspecified; Z99.81 Dependence on supplemental oxygen; I95.1 Orthostatic hypotension; I25.5 Ischemic cardiomyopathy; I08.0 Rheumatic disorders of both mitral and aortic valves
CPT/HCPCS: 12345; 36415; 36416; 36430; 43235; 70450; 71045; 74176; 78014; 80048; 80053; 82140; 82962; 83036; 83605; 83690; 84132; 84484; 85018; 85025; 85049; 85378; 85384; 85610; 85651; 85730; 86140; 86850; 86900; 86920; 93005; 93306; 93970; 97161; 97166; 97530; 97535; 99283; A9540; A9567; C9113; G0378; J7799; P9016

== ENCOUNTER 2020-03-18 13:55 | Emergency (ER) | payer MEDICARE, MEDICAID, SELFPAY ==
[2020-03-18 13:59] VITALS: BP 88/43; PULSE 74; RESP 16; O2SAT 94; BMI 23.4
--- NOTE | 2020-03-18 14:15 | XR_ITS ---
WS: [id number] Exam: XR chest 1V portable [id number] Date/Time of Exam: 03/18/2020 2:24 PM Reason For Exam: GI bleed Comparison 02/02/2020. The lungs are clear and fully expanded. Heart size is top limits normal. No pleural effusions. The me diastinum is not widened. Advanced DJD of both shoulders. XR/XR chest 1V portable [id number] IMPRESSION: 1. No acute cardiopulmonary finding.
--- NOTE | 2020-03-18 14:23 | ECG_ITS ---
[facility] Test Date: 2020-03-18 Pat Name: Chelsi Berger Department: Room: Gender: Female [employer] Observer: : 1940 Requested By: Perry Calabrese Order Number: [id number] Kt MD: Jayne Newman M.D. Measurements Intervals [place] Rate: 74 P: -18 ND: 130 QRS: 50 QRSD: 110 T: 9 QT: 395 QTc: 441 Interpretive Statements SINUS RHYTHM WITH OCCASIONAL VENTRICULAR PREMATURE COMPLEXES MODERATE INTRAVENTRICULAR CONDUCTION DELAY [105+ ms QRS DURATION, 80+ ms Q/S IN V1/V2, NO Q AND 60+ ms R IN I/aVL/V5/V6] Compared to ECG 02/02/2020 18:22:39 Ventricular premature complex(es) now present Intraventricular conduction delay now present Electronically Signed On 03-18-2020 16:50:10 [employer] by Jayne Newman M.D. [id number]
--- NOTE | 2020-03-18 14:32 | CTR_ITS ---
PROCEDURE INFORMATION: Exam: CT Abdomen And Pelvis Without Contrast Exam date and time: 03/18/2020 2:35 PM Age: 79 years old Clinical indication: Bloating; Prior surgery; Surgery type: Appy, gb, hyst; Additional info: Acute gi bleed. Abdominal swelling. Cirrhosis history TECHNIQUE: Imaging protocol: Computed tomography of the abdomen and pelvis without contrast. Radiation optimization: All CT scans at this facility use at least one of these dose optimization techniques: automated exposure control; mA and/or kV adjustment per patient size (includes targeted exams where dose is matched to clinical indication); or iterative reconstruction. COMPARISON: CT abdomen pelvis wo con [id number] 02/02/2020 9:49 PM RADIATION DOSE METRICS: Total DLP (mGy-cm): 696.88 FINDINGS: Pleural space: Small bilateral pleural effusions. Heart: Cardiomegaly. Liver: Liver surface is nodular consistent with the cirrhosis. Gallbladder and bile ducts: Cholecystectomy clips. Pancreas: Normal. No ductal dilation. Spleen: Spleen is enlarged and measures 15 cm. Adrenal glands: Normal. No mass. Kidneys and ureters: Hyperdense cyst in the midpole of left kidney measuring 9 mm. Stomach and bowel: Diverticulosis of the sigmoid colon. Appendix: No evidence of appendicitis. Intraperitoneal space: Moderate ascites in the abdomen and pelvis. Vasculature: Atherosclerotic calcification of the abdominal aorta and bilateral iliac vessels. Lymph nodes: Unremarkable. No enlarged lymph nodes. Urinary bladder: Unremarkable as visualized. Reproductive: Unremarkable as visualized. Bones/joints: Multilevel degenerative disc disease. Grade 1 anterolisthesis of L4 over L5. Soft tissues: Diffuse anasarca. CT/CT abdomen pelvis wo con [id number] IMPRESSION: Cirrhosis with moderate ascites. Bilateral small pleural effusions. Splenomegaly. Diffuse anasarca. COMMENTS: Consistent with the [employer]'s Incidental Findings Committee white paper (J Am Gloria Radiol 2018): Any incidental renal lesion less than 1 cm or classified as too small to characterize, or any incidental cystic renal lesion characterized as simple-appearing, is likely benign. No follow-up imaging is recommended for these lesions per consensus recommendations based on imaging criteria. Radiation Dose CTDIVOL = (mGy): DLP = 696.88 (mGy-cm)
--- NOTE | 2020-03-18 14:37 | W.ED.GIBLEED ---
HPI - GI Bleed General: Chief complaint: GI Bleed Stated complaint: DISTENDED ABD Time Seen by Provider: 03/18/20 14:10 History of Present Illness: HPI Narrative: The patient is an 79-year-old female who comes to the ER complaining of bloody stools and distended abdomen. She has a history of cirrhosis (non-alcoholic), Parkinson's, diabetes, CHF, CKD and elevatedd troponin last visit diagnosed as demand ischemia. The blood in the stool has been an ongoing issue and she was admitted for several days here recently and transferred to [facility] for further evaluation Severity: similar to previous episodes Associated symptoms: Reports abdominal pain; Denies headache(s) or rash Review of Systems General: Reports: 10 or more systems reviewed and unremarkable except in HPI and below Const: Denies: fatigue Eyes: Denies: change in vision, blurry vision or eye redness ENMT: Denies: throat pain, swelling of lips/tongue, ear or mastoid pain or nasal congestion Card: Denies: chest pain, palpitations, irregular heart rhythm, edema, dyspnea on exertion or orthopnea Resp: Denies: dyspnea, productive cough or non-productive cough GI: Reports: abdominal pain and melena; Denies: diarrhea or GI cramping : Denies: flank pain, difficulty voiding, urinary frequency or urinary urgency Musc: Denies: neck pain, back pain, extremity pain, joint pain, joint redness, limited range of motion or muscle weakness Skin/Breast: Denies: rash, pruritus, erythema, skin pain or skin tenderness Neuro: Denies: headache(s), numbness in extremities, weakness in extremities, sensory changes, difficulty walking, dizziness, confusion or Slurred speech present Psych: Denies: anxiety or depression Endo: Denies: polyuria All/Imm: Denies: urticaria, throat swelling or tongue swelling PFSH ED PFSH: Medical History (Updated 03/18/20 @ 21:49 by Perry Calabrese MD) Anemia Chronic kidney disease, stage III (moderate) Coronary artery disease Diastolic heart failure Diverticulosis Hyperlipidemia Hypertension Liver cirrhosis Lower GI bleed Moderate to severe pulmonary hypertension Oxygen dependent 2L per NC Parkinsons disease Tubular adenoma Type 2 diabetes mellitus Surgical History History of coronary artery stent placement 2006 History of tonsillectomy and adenoidectomy Hx of appendectomy Hx of cholecystectomy Hx of hysterectomy Family History Mother CAD (coronary artery disease) Myocardial infarction Diabetes Hypertension Social History (Updated 02/02/20 @ 20:49 by Marko Jose MD) Smoking and tobacco status: never smoked Alcohol intake: never Household members: family Housing: House Physical Exam Const: COMMON NORMALS: patient oriented x3, no limitations, alert and well nourished EXAM LIMITATIONS: altered mental status GENERAL APPEARANCE: cooperative, comfortable, well kempt and well developed ORIENTATION/CONSCIOUSNESS: Yes awake, Yes oriented to person, Yes oriented to place and Yes oriented to time HENMT: COMMON NORMALS: normocephalic, external ears normal and Normal external nose present HEAD & SCALP: normal to inspection and normocephalic NOSE: Normal external nose present EXTERNAL EAR: Yes external ears normal MOUTH: Normal oral and palatal mucosa present THROAT: posterior oropharynx normal Eye: COMMON NORMALS: Equal, round and reactive pupils present and EOMs intact bilaterally GENERAL EYE: appearance normal, both eyes and all related structures PUPIL: Yes Equal, round and reactive pupils present Neck/C-Spine: COMMON NORMALS: full ROM, no lymphadenopathy, no meningeal signs and no JVD GENERAL: Yes normal visual inspection Lymph: LYMPHATIC: no lymphadenopathy noted Chest: COMMONS NORMALS: normal inspection of the chest and normal palpation of entire chest wall Resp: COMMON NORMALS: normal respiratory effort, No retractions, No use of accessory muscles, clear to auscultation bilaterally and percussion normal EFFORT & INSPECTION: Yes able to speak in complete sentences AUSCULTATION: clear to auscultation bilaterally PERCUSSION: percussion normal Cardio: COMMON NORMALS: no JVD, regular rate, regular rhythm, S1 normal heart sound present, S2 normal heart sound present and Peripheral pulses 2+ throughout RATE: regular rate RHYTHM: regular rhythm HEART SOUNDS: S1 normal heart sound present and S2 normal heart sound present PERIPHERAL PULSES: Peripheral pulses 2+ throughout GI: COMMON NORMALS: Normal to inspection, nondistended, normoactive bowel sounds present, Soft to palpation, non-tender and no masses INSPECTION: Yes normal to inspection PALPATION: Yes Soft to palpation : COMMON NORMALS: Yes no CVA tenderness BLADDER/KIDNEY EXAM: Yes no CVA tenderness Back/Pelvis: COMMON NORMALS: no CVA tenderness, thoracic and lumbar spine normal to inspection, no thoracic nor lumbar tenderness and thoraco-lumbar ROM normal Extremity: COMMON NORMALS: normal to inspection, full ROM, capillary refill normal, no joint enlargement and no pedal edema GENERAL: Yes normal exam except as noted Neuro: COMMON NORMALS: patient oriented x3, CN's II-XII intact bilaterally, moves all extremities, no focal motor deficits, no sensory deficits noted and gait normal SENSORIUM/ORIENTATION: Yes alert, Yes oriented to person, Yes oriented to place and Yes oriented to time MENINGEAL SIGNS: Yes no meningeal signs Psych: COMMON NORMALS: mental status grossly normal, Normal thought process present, cooperative, normal affect and speech normal APPEARANCE: Yes well kempt ATTITUDE: Yes calm SPEECH: Yes normal speech THOUGHT PROCESS: Normal thought process present Skin: COMMON NORMALS: no rashes or lesions noted GENERAL SKIN EXAM: no rashes or lesions noted Course Vital Signs: Vital signs: Vital Signs Pulse Rate 71 03/18/20 22:15 Respiratory Rate 18 03/18/20 22:15 Blood Pressure 97/46 03/18/20 22:15 Pulse Oximetry 97 03/18/20 22:15 MDM - GI Bleed MDM Narrative: Medical decision making narrative: This is a complex case. The patient has a history of CHF, CAD with stents, CKD, cirrhosis, chronic lower GI bleed, diabetes and Parkinson's disease. She comes in today complaining of abdominal pain and swelling. Her blood pressure has been severely low and although she does run low her pressure systolic was in the 60s on arrival. That is lower than her baseline. She had a large bowel movement with some streaks of blood in her feces as well. This has been a chronic problem for her and she has had an upper and lower endoscopy this year with no significant cause for the bleeding. She has had 1 unit transfused of blood this year. she also has many lab abnormalities including white blood cell count 18. Infection work-up was negative but she was empirically started on Vanco and Zosyn. Hemoglobin 7.6 which is lower than her trend, type and cross was gathered. Creatinine 3.9 and BUN 106. These are significantly above her baseline numbers and indicate an acute renal failure. Also her troponin I was elevated to 130 on arrival. She has had this before recently and was admitted where it was called demand ischemia. The 2-hour troponin was lower in the 6-hour troponin was yet again lower indicating unlikely acute myocardial infarction. I started her on Levophed for her blood pressure empirically and give her a 500 cc bolus. Did not give much more IV fluids because of her CHF and gross ascites. She was recently admitted for similar symptoms and was transferred to [facility] for GI coverage. We called around 15 different hospitals to find an ICU bed unsuccessfully until [facility] was available with a bed. Discussed with consulting general surgeon and Dr. Izquierdo hospitalist who accepts her to the ICU there. Lab Data: Labs: Lab Results 03/18/20 03/18/20 03/18/20 Range/Units 14:38 14:38 14:38 WBC 18.2 H (4.0-10.0) 10^3/ uL RBC 2.78 L (4.1-5.3) 10^6/u L Hgb 7.6 L (11.5-15.3) g/dL Hct 23.7 L (37.0-47.0) % MCV 85.3 (81-99) fL MCH 27.3 L (28.0-34.0) pg MCHC 32.1 (30.0-36.0) g/dL RDW 16.0 H (12.1-15.1) % Plt Count 431 H (130-400) 10^3/c mm MPV 11.2 H (7.4-10.4) fL Lymph % (Auto) Not Reportable [place] % (Auto) Not Reportable Lymph # (Auto) Not Reportable [place] # (Auto) Not Reportable Total Counted 100 (0-100) Atypical Lymphs % 1.0 (0-5) % Absolute Neutrophi ls 16.6 H (1.4-6.5) 10^3/c mm Segmented Neutroph ils 73 % Abs Segm Neuts (Ma n) 13.3 H (1.6-7.1) 10/cmm Band Neutrophils 18.0 % Abs Band Neuts (Ma n) 3.3 H (0.0-1.2) 10^3/c mm Lymphocytes (Manua l) 4 % Monocytes (Manual) 3.0 % Absolute Monocytes 0.5 (0.1-0.6) 10^3/c mm Eosinophils (Manua l) 0 % Absolute Eosinophi ls 0.0 (0.0-0.7) 10^3/c mm Basophils (Manual) 0.0 % Absolute Basophils 0.0 (0.0-0.2) 10^3/c mm Platelet Estimate Normal (Normal) Target Cells 1+ H Acanthocytes (Spur ) 2+ H Sodium 132 L (136-145) mmol/L Potassium 4.7 (3.5-5.1) mmol/L Chloride 101 (98-107) mmol/L Carbon Dioxide 16 L (22-29) mmol/L Anion Gap 18.7 (5-19) BUN 106 H* D (8-23) mg/dL Creatinine 3.9 H (0.5-0.9) mg/dL GFR Calculation Not Reportable Glucose 68 (65-115) mg/dL Calculated Osmolal ity 306 H (285-295) mOsm/k g Lactate (0.5-2.2) mmol/L Calcium 8.7 (8.5-10.5) mg/dL Total Bilirubin 0.4 (0.15-1.2) mg/dL AST 14 (0-32) U/L ALT < 5 (0-33) U/L Alkaline Phosphata se 78 (35-105) IU/L Troponin T Baselin e 130 H* (0-10) ng/L Troponin T 120 Min [place] (0-10) ng/L Delta Troponin T (0-10) ABS# Troponin T Hi Sens 6Hr (0-10) ng/L Troponin T Hi Sens 6Hr Delta (0-12) ng/L NT-Pro-B Natriuret Pep 89205 H (0-450) pg/mL Total Protein 5.7 L (6.6-8.7) g/dL Albumin 1.9 L (3.5-5.2) g/dL Globulin 3.7 (1.3-4.6) g/dL Lipase 21 (13-60) U/L Urine Color (Yellow) Urine Appearance (CLEAR) Urine pH (5-7) Ur Specific Gravit y (1.005-1.030) Urine Protein (Negative) Urine Glucose (UA) (Normal) Urine Ketones (Negative) Urine Blood (Negative) Urine Nitrate (Negative) Urine Bilirubin (Negative) Urine Urobilinogen (Negative) mg/dL Ur Leukocyte Vee ase (Negative) Urine RBC (0-2) /hpf Urine WBC (0-5) /hpf Ur Squamous Epith Cells (0-5) /hpf Amorphous Sediment Urine Bacteria (NONE) /hpf Urine Yeast /hpf Urine Opiates Scre en (Negative) ng/mL Ur Barbiturates Sc reen (Negative) ng/mL Ur Phencyclidine S crn (Negative) ng/mL Ur Amphetamines Sc reen (Negative) ng/mL U Benzodiazepines Scrn (Negative) ng/mL Urine Cocaine Scre en (Negative) ng/mL U Marijuana (THC) Screen (Negative) ng/mL Ethyl Alcohol < 10 (0-10) mg/dL SARS-CoV-2 Ag (Rap id) (Negative) Blood Type Rho(D) Type Antibody Screen 03/18/20 03/18/20 03/18/20 Range/Units 16:24 16:24 17:10 WBC (4.0-10.0) 10^3/ uL RBC (4.1-5.3) 10^6/u L Hgb (11.5-15.3) g/dL Hct (37.0-47.0) % MCV (81-99) fL MCH (28.0-34.0) pg MCHC (30.0-36.0) g/dL RDW (12.1-15.1) % Plt Count (130-400) 10^3/c mm MPV (7.4-10.4) fL Lymph % (Auto) [place] % (Auto) Lymph # (Auto) [place] # (Auto) Total Counted (0-100) Atypical Lymphs % (0-5) % Absolute Neutrophi ls (1.4-6.5) 10^3/c mm Segmented Neutroph ils % Abs Segm Neuts (Ma n) (1.6-7.1) 10/cmm Band Neutrophils % Abs Band Neuts (Ma n) (0.0-1.2) 10^3/c mm Lymphocytes (Manua l) % Monocytes (Manual) % Absolute Monocytes (0.1-0.6) 10^3/c mm Eosinophils (Manua l) % Absolute Eosinophi ls (0.0-0.7) 10^3/c mm Basophils (Manual) % Absolute Basophils (0.0-0.2) 10^3/c mm Platelet Estimate (Normal) Target Cells Acanthocytes (Spur ) Sodium (136-145) mmol/L Potassium (3.5-5.1) mmol/L Chloride (98-107) mmol/L Carbon Dioxide (22-29) mmol/L Anion Gap (5-19) BUN (8-23) mg/dL Creatinine (0.5-0.9) mg/dL GFR Calculation Glucose (65-115) mg/dL Calculated Osmolal ity (285-295) mOsm/k g Lactate 0.9 (0.5-2.2) mmol/L Calcium (8.5-10.5) mg/dL Total Bilirubin (0.15-1.2) mg/dL AST (0-32) U/L ALT (0-33) U/L Alkaline Phosphata se (35-105) IU/L Troponin T Baselin e (0-10) ng/L Troponin T 120 Min [place] (0-10) ng/L Delta Troponin T (0-10) ABS# Troponin T Hi Sens 6Hr (0-10) ng/L Troponin T Hi Sens 6Hr Delta (0-12) ng/L NT-Pro-B Natriuret Pep (0-450) pg/mL Total Protein (6.6-8.7) g/dL Albumin (3.5-5.2) g/dL Globulin (1.3-4.6) g/dL Lipase (13-60) U/L Urine Color Yellow (Yellow) Urine Appearance Clear (CLEAR) Urine pH 5 (5-7) Ur Specific Gravit y 1.015 (1.005-1.030) Urine Protein Neg (Negative) Urine Glucose (UA) Norm (Normal) Urine Ketones Negative (Negative) Urine Blood 2+ H (Negative) Urine Nitrate Negative (Negative) Urine Bilirubin 1+ H (Negative) Urine Urobilinogen Norm (Negative) mg/dL Ur Leukocyte Vee ase Negative (Negative) Urine RBC 0-4 H (0-2) /hpf Urine WBC 0-4 H (0-5) /hpf Ur Squamous Epith Cells 0-4 H (0-5) /hpf Amorphous Sediment Not Reportable Urine Bacteria 1+ H (NONE) /hpf Urine Yeast 1+ H /hpf Urine Opiates Scre en Negative (Negative) ng/mL Ur Barbiturates Sc reen Negative (Negative) ng/mL Ur Phencyclidine S crn Negative (Negative) ng/mL Ur Amphetamines Sc reen Negative (Negative) ng/mL U Benzodiazepines Scrn Positive H (Negative) ng/mL Urine Cocaine Scre en Negative (Negative) ng/mL U Marijuana (THC) Screen Negative (Negative) ng/mL Ethyl Alcohol (0-10) mg/dL SARS-CoV-2 Ag (Rap id) (Negative) Blood Type Rho(D) Type Antibody Screen 03/18/20 03/18/20 03/18/20 Range/Units 17:10 20:15 20:30 WBC (4.0-10.0) 10^3/ uL RBC (4.1-5.3) 10^6/u L Hgb (11.5-15.3) g/dL Hct (37.0-47.0) % MCV (81-99) fL MCH (28.0-34.0) pg MCHC (30.0-36.0) g/dL RDW (12.1-15.1) % Plt Count (130-400) 10^3/c mm MPV (7.4-10.4) fL Lymph % (Auto) [place] % (Auto) Lymph # (Auto) [place] # (Auto) Total Counted (0-100) Atypical Lymphs % (0-5) % Absolute Neutrophi ls (1.4-6.5) 10^3/c mm Segmented Neutroph ils % Abs Segm Neuts (Ma n) (1.6-7.1) 10/cmm Band Neutrophils % Abs Band Neuts (Ma n) (0.0-1.2) 10^3/c mm Lymphocytes (Manua l) % Monocytes (Manual) % Absolute Monocytes (0.1-0.6) 10^3/c mm Eosinophils (Manua l) % Absolute Eosinophi ls (0.0-0.7) 10^3/c mm Basophils (Manual) % Absolute Basophils (0.0-0.2) 10^3/c mm Platelet Estimate (Normal) Target Cells Acanthocytes (Spur ) Sodium (136-145) mmol/L Potassium (3.5-5.1) mmol/L Chloride (98-107) mmol/L Carbon Dioxide (22-29) mmol/L Anion Gap (5-19) BUN (8-23) mg/dL Creatinine (0.5-0.9) mg/dL GFR Calculation Glucose (65-115) mg/dL Calculated Osmolal ity (285-295) mOsm/k g Lactate (0.5-2.2) mmol/L Calcium (8.5-10.5) mg/dL Total Bilirubin (0.15-1.2) mg/dL AST (0-32) U/L ALT (0-33) U/L Alkaline Phosphata se (35-105) IU/L Troponin T Baselin e (0-10) ng/L Troponin T 120 Min [place] 127.1 H (0-10) ng/L Delta Troponin T -2.9 L (0-10) ABS# Troponin T Hi Sens 6Hr 120.3 H (0-10) ng/L Troponin T Hi Sens 6Hr Delta -9.7 L (0-12) ng/L NT-Pro-B Natriuret Pep (0-450) pg/mL Total Protein (6.6-8.7) g/dL Albumin (3.5-5.2) g/dL Globulin (1.3-4.6) g/dL Lipase (13-60) U/L Urine Color (Yellow) Urine Appearance (CLEAR) Urine pH (5-7) Ur Specific Gravit y (1.005-1.030) Urine Protein (Negative) Urine Glucose (UA) (Normal) Urine Ketones (Negative) Urine Blood (Negative) Urine Nitrate (Negative) Urine Bilirubin (Negative) Urine Urobilinogen (Negative) mg/dL Ur Leukocyte Vee ase (Negative) Urine RBC (0-2) /hpf Urine WBC (0-5) /hpf Ur Squamous Epith Cells (0-5) /hpf Amorphous Sediment Urine Bacteria (NONE) /hpf Urine Yeast /hpf Urine Opiates Scre en (Negative) ng/mL Ur Barbiturates Sc reen (Negative) ng/mL Ur Phencyclidine S crn (Negative) ng/mL Ur Amphetamines Sc reen (Negative) ng/mL U Benzodiazepines Scrn (Negative) ng/mL Urine Cocaine Scre en (Negative) ng/mL U Marijuana (THC) Screen (Negative) ng/mL Ethyl Alcohol (0-10) mg/dL SARS-CoV-2 Ag (Rap id) Negative (Negative) Blood Type Rho(D) Type Antibody Screen 03/18/20 Range/Units 20:30 WBC (4.0-10.0) 10^3/ uL RBC (4.1-5.3) 10^6/u L Hgb (11.5-15.3) g/dL Hct (37.0-47.0) % MCV (81-99) fL MCH (28.0-34.0) pg MCHC (30.0-36.0) g/dL RDW (12.1-15.1) % Plt Count (130-400) 10^3/c mm MPV (7.4-10.4) fL Lymph % (Auto) [place] % (Auto) Lymph # (Auto) [place] # (Auto) Total Counted (0-100) Atypical Lymphs % (0-5) % Absolute Neutrophi ls (1.4-6.5) 10^3/c mm Segmented Neutroph ils % Abs Segm Neuts (Ma n) (1.6-7.1) 10/cmm Band Neutrophils % Abs Band Neuts (Ma n) (0.0-1.2) 10^3/c mm Lymphocytes (Manua l) % Monocytes (Manual) % Absolute Monocytes (0.1-0.6) 10^3/c mm Eosinophils (Manua l) % Absolute Eosinophi ls (0.0-0.7) 10^3/c mm Basophils (Manual) % Absolute Basophils (0.0-0.2) 10^3/c mm Platelet Estimate (Normal) Target Cells Acanthocytes (Spur ) Sodium (136-145) mmol/L Potassium (3.5-5.1) mmol/L Chloride (98-107) mmol/L Carbon Dioxide (22-29) mmol/L Anion Gap (5-19) BUN (8-23) mg/dL Creatinine (0.5-0.9) mg/dL GFR Calculation Glucose (65-115) mg/dL Calculated Osmolal ity (285-295) mOsm/k g Lactate (0.5-2.2) mmol/L Calcium (8.5-10.5) mg/dL Total Bilirubin (0.15-1.2) mg/dL AST (0-32) U/L ALT (0-33) U/L Alkaline Phosphata se (35-105) IU/L Troponin T Baselin e (0-10) ng/L Troponin T 120 Min [place] (0-10) ng/L Delta Troponin T (0-10) ABS# Troponin T Hi Sens 6Hr (0-10) ng/L Troponin T Hi Sens 6Hr Delta (0-12) ng/L NT-Pro-B Natriuret Pep (0-450) pg/mL Total Protein (6.6-8.7) g/dL Albumin (3.5-5.2) g/dL Globulin (1.3-4.6) g/dL Lipase (13-60) U/L Urine Color (Yellow) Urine Appearance (CLEAR) Urine pH (5-7) Ur Specific Gravit y (1.005-1.030) Urine Protein (Negative) Urine Glucose (UA) (Normal) Urine Ketones (Negative) Urine Blood (Negative) Urine Nitrate (Negative) Urine Bilirubin (Negative) Urine Urobilinogen (Negative) mg/dL Ur Leukocyte Vee ase (Negative) Urine RBC (0-2) /hpf Urine WBC (0-5) /hpf Ur Squamous Epith Cells (0-5) /hpf Amorphous Sediment Urine Bacteria (NONE) /hpf Urine Yeast /hpf Urine Opiates Scre en (Negative) ng/mL Ur Barbiturates Sc reen (Negative) ng/mL Ur Phencyclidine S crn (Negative) ng/mL Ur Amphetamines Sc reen (Negative) ng/mL U Benzodiazepines Scrn (Negative) ng/mL Urine Cocaine Scre en (Negative) ng/mL U Marijuana (THC) Screen (Negative) ng/mL Ethyl Alcohol (0-10) mg/dL SARS-CoV-2 Ag (Rap id) (Negative) Blood Type A Positive Rho(D) Type Positive Antibody Screen Negative Discharge Plan Discharge Patient Disposition: Xfer Other Clinical Impression: Acute hypotension, Lower gastrointestinal hemorrhage Anemia Qualifiers: Anemia type: unspecified type Qualified Code(s): D64.9 - Anemia, unspecified Liver cirrhosis Qualifiers: Hepatic cirrhosis type: unspecified hepatic cirrhosis Ascites presence: with ascites Qualified Code(s): K74.60 - Unspecified cirrhosis of liver Leukocytosis Qualifiers: Leukocytosis type: unspecified Qualified Code(s): D72.829 - Elevated white blood cell count, unspecified Acute on chronic kidney failure Qualifiers: Acute renal failure type: unspecified Chronic kidney disease stage: unspecified stage Qualified Code(s): N17.9 - Acute kidney failure, unspecified Clinical Impression: (Ruled Out): Respiratory failure Condition: Stable Referrals: Marcelina Yan PA [Primary Care Provider] - Coding Level of Care Code ED Telephone Order Clerk for [facility] Fwd Exam Comprehensive
[2020-03-18 15:07] LABS: Hematocrit 23.7 % (37.0-47.0); Hemoglobin 7.6 g/dL (11.5-15.3); Mean Corpuscular HGB Conc 32.1 g/dL (30.0-36.0); Mean Corpuscular Hemoglobin 27.3 pg (28.0-34.0); Mean Corpuscular Volume 85.3 fL (81-99); Mean Platelet Volume 11.2 fL (7.4-10.4); Platelet Count 431 10^3/cmm (130-400); Red Blood Count 2.78 10^6/uL (4.1-5.3); White Blood Count 18.2 10^3/uL (4.0-10.0)
[2020-03-18 15:31] LABS: Alkaline Phosphatase 78 IU/L (35-105); Aspartate Amino Transferase 14 U/L (0-32); Chloride 101 mmol/L (98-107); Globulin 3.7 g/dL (1.3-4.6); Glucose 68 mg/dL (65-115); Lipase 21 U/L (13-60); Total Bilirubin 0.4 mg/dL (0.15-1.2)
[2020-03-18 15:56] LABS: Troponin(5th) Baseline 130 ng/L (0-10)
[2020-03-18 16:19] LABS: Absolute Segmented Neutrophil 13.3 10/cmm (1.6-7.1); Acanthocytes 2+; Band Neutrophils Absolute 3.3 10^3/cmm (0.0-1.2); Eosinophils 0 %; Lymphocytes 4 %; Monocytes Absolute 0.5 10^3/cmm (0.1-0.6); Segmented Neutrophils 73 %; Slide Review Slide Review Perform
[2020-03-18 16:20] LABS: Target Cells 1+
--- NOTE | 2020-03-18 16:23 | ECG_ITS ---
[facility] Test Date: 2020-03-18 Pat Name: Chelsi Berger Department: Room: Gender: Female Furniture Polisher: : 1940 Requested By: Perry Calabrese Order Number: [id number] Kt MD: Jayne Newman M.D. Measurements Intervals [place] Rate: 72 P: -14 WY: 130 QRS: 48 QRSD: 113 T: 11 QT: 407 QTc: 446 Interpretive Statements SINUS RHYTHM MODERATE INTRAVENTRICULAR CONDUCTION DELAY [105+ ms QRS DURATION, 80+ ms Q/S IN V1/V2, NO Q AND 60+ ms R IN I/aVL/V5/V6] Compared to ECG 03/18/2020 14:40:16 Ventricular premature complex(es) no longer present Electronically Signed On 03-18-2020 16:53:37 ENVIRONMENT COORDINATOR by Jayne Newman M.D. [id number]
[2020-03-18 16:29] VITALS: BP 86/44; PULSE 58; RESP 24; O2SAT 96
[2020-03-18 16:40] LABS: Absolute Neutrophil 16.6 10^3/cmm (1.4-6.5); Platelet Estimate Normal (Normal); Total Cells Counted 100 (0-100)
[2020-03-18 16:43] LABS: Albumin Level 1.9 g/dL (3.5-5.2); Calcium 8.7 mg/dL (8.5-10.5); Carbon Dioxide 16 mmol/L (22-29); Osmolality Calculated 306 mOsm/kg (285-295); Sodium 132 mmol/L (136-145); Total Protein 5.7 g/dL (6.6-8.7)
[2020-03-18 16:44] LABS: Alcohol Level < 10 mg/dL (0-10); Anion Gap 18.7 (5-19); Blood Urea Nitrogen 106 mg/dL (8-23); Potassium 4.7 mmol/L (3.5-5.1)
[2020-03-18 16:56] LABS: Add Urine Microscopic? YES; Bilirubin Urine 1+ (Negative); Blood Urine 2+ (Negative); Glucose Urine UA Norm (Normal); Ketones Urine Negative (Negative); Leukocyte Esterase Urine Negative (Negative); Nitrate Urine Negative (Negative); Protein Urine Neg (Negative); Specific Gravity, Urine 1.015 (1.005-1.030); Urine Appearance Clear (CLEAR); Urine Color Yellow (Yellow); Urobilinogen Urine Norm (Negative); pH Urine 5 (5-7)
[2020-03-18 16:57] LABS: Add Urine Culture? Yes; Bacteria Urine 1+ /hpf; RBC Urine 0-4 /hpf (0-2); Squamous Epithelial Cell Urine 0-4 /hpf (0-5); WBC Urine 0-4 /hpf (0-5)
[2020-03-18 16:58] LABS: Amphetamines Screen Urine Negative (Negative); Barbiturates Screen Urine Negative (Negative); Benzodiazepines Screen Urine Positive (Negative); Cocaine Screen Urine Negative (Negative); Opiate Screen Urine Negative (Negative); PCP Screen Urine Negative (Negative); THC Screen Urine Negative (Negative)
[2020-03-18 17:07] LABS: NT Pro B Type Natriuretic Pept 49918 pg/mL (0-450)
[2020-03-18 17:21] LABS: Alanine Aminotransferase < 5 U/L (0-33)
[2020-03-18 17:26] VITALS: BP 138/61; PULSE 71; RESP 17; O2SAT 95
[2020-03-18 17:38] LABS: Lactate (Lactic Acid level) 0.9 mmol/L (0.5-2.2)
[2020-03-18 17:45] LABS: Troponin 5 2HR 127.1 ng/L (0-10); Troponin 5 2HR Delta -2.9 ABS# (0-10)
[2020-03-18] MEDS: sodium chloride 0.9% 500 ML IV (17:55)
[2020-03-18] MEDS: piperacillin-tazobactam 3.375 GM in sodium chloride 0.9% (plus) 50 ML IV (20:16)
[2020-03-18] MEDS: pantoprazole 40 MG in sodium chloride 0.9% (plus) 100 ML 20 MG IV (20:16)
[2020-03-18] MEDS: pantoprazole 40 mg SDV 80 MG IVP (20:16)
--- NOTE | 2020-03-18 20:23 | ECG_ITS ---
[facility] Test Date: 2020-03-18 Pat Name: Chelsi Berger Department: Room: Gender: Female Investigations Chief: : 1940 Requested By: Perry Calabrese Order Number: [id number] Kt MD: Jayne Newman M.D. Measurements Intervals [place] Rate: 70 P: -2 HI: 121 QRS: 33 QRSD: 117 T: 3 QT: 424 QTc: 458 Interpretive Statements SINUS RHYTHM WITH SINUS ARRHYTHMIA MODERATE INTRAVENTRICULAR CONDUCTION DELAY [110+ ms QRS DURATION] Compared to ECG 03/18/2020 16:29:16 No significant changes Electronically Signed On 03-18-2020 21:20:21 ROUTER OPERATOR by Jayne Newman M.D. [id number]
--- NOTE | 2020-03-18 20:25 | PC.NURSE ---
EKG done at 2022 and shown to ER doctor
[2020-03-18 20:35] VITALS: BP 90/42; PULSE 72; RESP 17; O2SAT 95
[2020-03-18 20:45] LABS: SARS Covid-2 Antigen Negative (Negative)
[2020-03-18] MEDS: vancomycin 1,000 MG in sodium chloride 0.9% 250 ML 250 MG IV (21:09)
[2020-03-18 21:15] LABS: Troponin 5 6HR 120.3 ng/L (0-10); Troponin 5 6HR Delta -9.7 ng/L (0-12)
[2020-03-18 22:15] VITALS: BP 97/46; PULSE 71; RESP 18; O2SAT 97
== END 2020-03-18 23:04 | disposition other institution (70) ==
PROVIDERS: Emergency Provider Family Medicine; PCP Physician Assistant
DX: K74.60 Unspecified cirrhosis of liver (principal); D72.829 Elevated white blood cell count, unspecified; D64.9 Anemia, unspecified; I13.0 Hypertensive heart and chronic kidney disease with heart failure and stage 1 through stage 4 chronic kidney disease, or unspecified chronic kidney disease; N18.30 Chronic kidney disease, stage 3 unspecified; I50.30 Unspecified diastolic (congestive) heart failure; E11.22 Type 2 diabetes mellitus with diabetic chronic kidney disease; I25.10 Atherosclerotic heart disease of native coronary artery without angina pectoris; E78.5 Hyperlipidemia, unspecified; Z99.81 Dependence on supplemental oxygen; G20 Parkinson's disease; R10.9 Unspecified abdominal pain
CPT/HCPCS: 12345; 71045; 74176; 80053; 80306; 80307; 81001; 83605; 83690; 83880; 84484; 85007; 85025; 86850; 86900; 87086; 87426; 93005; 96365; 96366; 96367; 96368; 96375; 99283; 99285; C9113; J2543; J3370; J7040; J7050